=== PATIENT | female | born 1985 | race Caucasian/White ===

== ENCOUNTER → 2016-12-31 | Outpatient (CLI) | payer BC ==
[~2016-12-31] MED LIST: ACET125T2 PO; ACET25TA PO; GABA300C3 PO; IBUP600T26 PO; TOPI25TA5 PO; VITA100T98 PO
--- NOTE | 2016-12-31 11:44 | REP ---
Pelvic sonography: History: Pelvic pain. Findings: Transabdominal and transvaginal scanning are performed. Uterine dimensions are normal at 9.2 x 3.6 x 5.8 cm. Endometrial echo is 0.8 cm thick and centrally placed. There is a tiny sliver of fluid in the cul-de-sac adjacent the right ovary. The ovaries are enlarged bilaterally. Overall dimensions of the right ovary are 6.9 x 4.1 x 3.8 cm. The left ovary dimensions overall are 5.3 x 3.0 x 3.7 cm. In the right ovary, there is a hypoechoic and avascular lesion consistent with complex cyst such as endometrioma measuring 3.3 x 2.7 x 2.1 cm. There is a tiny focal calcification along the periphery of this. In the left ovary, there is a 2.2 x 2.8 x 3.2 cm anechoic cyst. There is a focal hyperechoic excrescence on the posterior wall of the cyst consistent with a mural calcification. No soft tissue nodule is seen. In the left ovary, there is also a hypoechoic area 1.1 x 1.3 x 1.0 cm which could be a complex cyst as well. Impression: Hypoechoic cysts bilaterally in the enlarged ovaries, question endometrioma versus hemorrhagic cyst. Small amount of cul-de-sac fluid. Normal uterus. Signed by Keith Mcpherson MD 12/31/2016 01:55 P
== END | disposition home or self-care (01) ==
LOC: M SMT 07:50
PROVIDERS: ATTEND Advanced Practice Midwife
DX: N83.201 Unspecified ovarian cyst, right side (principal); N83.202 Unspecified ovarian cyst, left side

== ENCOUNTER → 2017-03-15 | Day surgery (SDC) | payer BC ==
[~2017-03-15] VITALS: Ht 170.2 cm; Wt 86.2 kg
[~2017-03-15] MED LIST changes: +BUPIVACAINE HCL 0.25% 30 ML VIAL As Ordered ONE; +GABA-282 PO; -GABA300C3 PO; +GLYCOPYRROLATE INJ 0.2 MG/ML 2 ML VIAL As Ordered ONE; +HYDROmorphone HCL 2 MG/ML 1ML VIAL (J1170) As Ordered ONE; +KETOROLAC 60 MG/2 ML VIAL (J1885) As Ordered ONE; +LR 1,000 ML IV SCH; +MEPERIDINE INJ 25 MG/ML VIAL (J2175) IV PRN; +METHYLENE BLUE 0.5% (5MG/ML) 10 ML AMP (PROVAYBLUE)(Q9968 PER 1MG) As Ordered ONE; +METOCLOPRAMIDE INJ 10MG/2ML VIAL (J2765) IV PRN; +MIDAZOLAM INJ 2 MG/2 ML VIAL (J2250) As Ordered ONE; +MORPHINE 2 MG/ML 1ML SYRINGE IV PRN; +ONDANSETRON 4MG/2ML VIAL (J2405) As Ordered ONE; +ONDANSETRON 4MG/2ML VIAL (J2405) IV PRN; +OXYC1TAB23 PO; +PERCOCET 5MG/325MG TAB PO PRN; +PROPOFOL 200 MG/20 ML VIAL As Ordered ONE; +ROCURONIUM BROMIDE 50 MG/5 ML VIAL As Ordered ONE; +SCOPOLAMINE 1.5 MG TRANSDERMAL TOP ONE; +dexameTHASONE 4 MG/ML 1ML VIAL (J1100) As Ordered ONE; +fentaNYL 100 MCG/2 ML INJECTION (J3010) IV PRN; +fentaNYL 250 MCG/5 ML INJECTION (J3010) As Ordered ONE
[2017-03-15 09:15] LABS: MEAN CORPUSCULAR HEMOGLOBIN 31.3 pg (27.0-33.0); MEAN CORPUSCULAR HGB CONC 33.4 g/dl (32.0-36.5); MEAN CORPUSCULAR VOLUME 93.6 fl (80.0-96.0); RED CELL DISTRIBUTION WIDTH 13.2 % (11.5-14.5); WHITE BLOOD COUNT 10.8 K/mm3 (4.0-10.0)
[2017-03-15 09:30] LABS: CONTROL LINE UCG INT CTR LINE PRESENT
[2017-03-15] MEDS: PERCOCET 5MG/325MG TAB PO PRN ×2 (12:47→13:20)
--- NOTE | 2017-03-15 14:37 | RO ---
DATE OF PROCEDURE: 03/15/2017 PREPROCEDURE DIAGNOSES: Endometriosis, pelvic pain. POSTPROCEDURE DIAGNOSES: Endometriosis, pelvic pain. PROCEDURE: Laparoscopy, lysis of adhesions, excision of endometriosis, right ovarian cystectomy, chromotubation. SURGEON: Anuel Aguero MD CESSATION SYSTEMS OUTREACH SPECIALIST: ANESTHESIA: General endotracheal. ESTIMATED BLOOD LOSS: Minimal. FINDINGS: Stage IV endometriosis, right ovarian endometrioma approximately cm in size, follicular cyst of the left ovary. Both ovaries were adherent to the ovarian fossa due to endometriosis. Both fallopian tubes were densely adherent to the ovaries. There were dense adhesions of the posterior cul-de-sac. There were also dense adhesions to the anterior cul-de-sac. There were endometriosis implants on the anterior abdominal wall and in the abdomen adjacent to the liver. She had a normal appearing liver and stomach. Normal appearing intestines. OPERATIVE SUMMARY: The patient was taken to the operating room where general endotracheal anesthesia was induced. She was prepped and draped in the sterile fashion in the dorsal lithotomy position. Clement catheter was placed. Speculum was placed in the vagina. Cervix was dilated with taper dilators. A uterine manipulator was placed through the internal os. The speculum was removed. Periumbilical incision was made with the scalpel. Veress needle was placed through this incision. Intraabdominal location of the Veress needle was assessed with the use of saline filled syringe. Pneumoperitoneum was created. Veress needle was removed. A 10 mm trocar with Visiport was inserted. Two 5 mm suprapubic ports were placed under direct visualization. Findings encountered were as noted above. Two rasping instruments were used to fully dissect adhesions of the endometriosis from the ovaries. The ovaries were from the ovarian fossa. Harmonic scalpel was used to dissect and incise endometriosis cyst on the right ovary. Left ovarian follicular cyst was drained as well. Numerous adhesions were taken down sharply with Endoshears. Both sides were reasonably freed by the end of the procedure. Methylene blue dye was instilled through the Zumi manipulator. Bilateral spill was readily seen on both sides. The pneumoperitoneum was released. All instruments were removed. The skin was closed with #4-0 Monocryl subcuticular sutures. Sponge, instrument and needle counts were correct.
[2017-03-15 15:00] VITALS: BP 126/76
== END | disposition home or self-care (01) ==
LOC: M SDC 08:50
PROVIDERS: ATTEND Specialist
DX: N80.3 Endometriosis of pelvic peritoneum (principal); R10.2 Pelvic and perineal pain; N73.6 Female pelvic peritoneal adhesions (postinfective); G93.2 Benign intracranial hypertension; Z88.1 Allergy status to other antibiotic agents; Z91.013 Allergy to seafood; Z91.030 Bee allergy status; Z79.899 Other long term (current) drug therapy
CPT/HCPCS: 36415; 58350; 58662; 84703; 85027; J1100; J1170; J1885; J2250; J2405; J3010; Q9968

== ENCOUNTER → 2017-07-20 | Outpatient (CLI) | payer BC ==
[~2017-07-20] MED LIST changes: +ACET250T2 PO; -ACET25TA PO; -BUPIVACAINE HCL 0.25% 30 ML VIAL As Ordered ONE; -GLYCOPYRROLATE INJ 0.2 MG/ML 2 ML VIAL As Ordered ONE; -HYDROmorphone HCL 2 MG/ML 1ML VIAL (J1170) As Ordered ONE; +IBUP-1022 PO; -IBUP600T26 PO; -KETOROLAC 60 MG/2 ML VIAL (J1885) As Ordered ONE; -LR 1,000 ML IV SCH; -MEPERIDINE INJ 25 MG/ML VIAL (J2175) IV PRN; -METHYLENE BLUE 0.5% (5MG/ML) 10 ML AMP (PROVAYBLUE)(Q9968 PER 1MG) As Ordered ONE; -METOCLOPRAMIDE INJ 10MG/2ML VIAL (J2765) IV PRN; -MIDAZOLAM INJ 2 MG/2 ML VIAL (J2250) As Ordered ONE; -MORPHINE 2 MG/ML 1ML SYRINGE IV PRN; -ONDANSETRON 4MG/2ML VIAL (J2405) As Ordered ONE; -ONDANSETRON 4MG/2ML VIAL (J2405) IV PRN; -PERCOCET 5MG/325MG TAB PO PRN; -PROPOFOL 200 MG/20 ML VIAL As Ordered ONE; -ROCURONIUM BROMIDE 50 MG/5 ML VIAL As Ordered ONE; -SCOPOLAMINE 1.5 MG TRANSDERMAL TOP ONE; +TOPI25TA10 PO; -TOPI25TA5 PO; -dexameTHASONE 4 MG/ML 1ML VIAL (J1100) As Ordered ONE; -fentaNYL 100 MCG/2 ML INJECTION (J3010) IV PRN; -fentaNYL 250 MCG/5 ML INJECTION (J3010) As Ordered ONE
== END ==
LOC: M SMT 13:10
PROVIDERS: ATTEND Obstetrics & Gynecology Reproductive Endocrinology
DX: Z53.8 Procedure and treatment not carried out for other reasons (principal)

== ENCOUNTER → 2017-07-22 | Outpatient (REF) | payer BC ==
[2017-07-30 00:06] LABS: SMN1 CARRIER DETECTION RATE Note (.); SMN1 COMMENTS Note (.); SMN1 DISCLAIMER Note (.); SMN1 INTERPRETATION Note (.); SMN1 METHOD/LIMITATIONS Note (.); SMN1 REFERENCES Note (.)
== END ==
LOC: M LAB REF 10:08
PROVIDERS: ATTEND Obstetrics & Gynecology Reproductive Endocrinology
DX: Z31.41 Encounter for fertility testing (principal)

== ENCOUNTER → 2017-08-06 | Outpatient (CLI) | payer BC ==
--- NOTE | 2017-08-06 14:36 | REP ---
MRA BRAIN WITHOUT CONTRAST: HISTORY: Benign intracranial hypertension. Unenhanced 2D ontd-et-fhtcab MR venography was performed. Comparison 11/16/2016. There are no filling defects in the deep venous system or dural sinuses. There is loss of the normal hyperintense signal in the proximal left transverse sinus and proximal left sigmoid sinus, unchanged compared to the previous study. The right transverse and sigmoid sinuses are dominant. IMPRESSION: There is loss of the normal hyperintense signal in the proximal left transverse and proximal left sigmoid sinuses consistent with stenosis, unchanged compared to the previous study. Signed by Anuel Pitt MD 08/06/2017 10:29 A
== END ==
LOC: M PLARAD 08:58
PROVIDERS: ATTEND Psychiatry & Neurology Neurology
DX: G93.2 Benign intracranial hypertension (principal)

== ENCOUNTER → 2017-08-09 | Outpatient (CLI) | payer BC ==
[2017-08-09 08:39] LABS: HCG, SERUM QUANTITATIVE < 1.0 MIU/ML
--- NOTE | 2017-08-09 08:47 | REP ---
Transvaginal pelvic sonography: History: Infertility. Findings: Uterine dimensions are 8.2 x 4.1 x 5.9 cm. Endometrial echo is 1.1 cm thick. There is no evidence of free fluid or focal uterine mass. The right ovary has dimensions today of 7.2 x 2.9 x 3.9 cm. There are six follicles over a centimeter measured as follows in the right ovary: 3.9 x 2.2, 2.2 x 1.0, 1.9 x 1.6, 1.3 x 1.0, 1.2 x 0.8, and 2.3 x 1.5 cm. In addition, the right ovary contains 23 follicles ranging in size from 0.2-0.9 cm. The overall dimensions of the left ovary are 5.4 x 2.9 x 5.3 cm. There is a 2.7 x 1.7 cm cyst in the left ovary. In addition, the left ovary contains 20 follicles ranging in size from 0.3-0.7 cm and a hemorrhagic follicle is seen in the left ovary measuring 1.0 x 1.6 x 2.5 cm. Impression: Ovarian follicle study pelvic ultrasound as above. Please print and fax worksheet as preliminary report. Signed by Keith Mcpherson MD 08/09/2017 09:40 A
[2017-08-09 10:38] LABS: PROGESTERONE 0.4 NG/ML
[2017-08-09 10:41] LABS: ESTRADIOL 68.5 PG/ML; FOLLICLE STIMULATING HORMONE 9.7 mIU/mL; LUTEINIZING HORMONE 7.3 mIU/mL
== END ==
LOC: M LAB 07:05
PROVIDERS: ATTEND Obstetrics & Gynecology Reproductive Endocrinology
DX: N97.8 Female infertility of other origin (principal)

== ENCOUNTER → 2017-08-24 | Outpatient (CLI) | payer BC ==
[2017-08-24 08:20] LABS: ESTRADIOL < 19.0 PG/ML; LUTEINIZING HORMONE 1.1 mIU/mL; PROGESTERONE < 0.2 NG/ML
--- NOTE | 2017-08-24 08:47 | REP ---
Pelvic ultrasound for follicle analysis, stat request: The studies performed with transvaginal imaging. Right ovary: There are two follicles greater than 10 mm, the largest measuring up to 12.4 mm. In addition, there are poor for follicle measuring 1.9 to 6.4 mm. The right ovary is normal size measuring 3.0-0.1 x 2.4 cm. Left ovary: There are two follicles greater than 10 mm, the largest measuring up to 27.4 mm. In addition, there are 11 follicles measuring 2.70-5.1 mm. Additionally, there is a hemorrhagic cyst measuring 1.6 x 1.4 x 2.0 cm. Also, there is a para ovarian/exophytic cyst measuring 2.4 x 2.3 x 4.8 cm. The possibility of hydrosalpinx cannot be entirely excluded. The left ovary is slightly enlarged measuring 5.3 x 2.7 x 4.8 cm. The uterus is anteverted and normal size measuring 7.6 x 3.6 x 5.9 cm. The endometrium is not thickened measuring 7.4 ml and has a homogeneous echotexture. Impression: Large paraovarian/exophytic cyst versus hydrosalpinx in the left adnexa as described. Bilateral ovarian follicles as described. Signed by Regino Sutherland MD 08/24/2017 08:38 A
== END ==
LOC: M RAD 07:04
PROVIDERS: ATTEND Obstetrics & Gynecology Reproductive Endocrinology
DX: N97.9 Female infertility, unspecified (principal)

== ENCOUNTER → 2017-08-31 | Outpatient (CLI) | payer BC ==
--- NOTE | 2017-08-31 08:18 | REP ---
Pelvic ultrasound, endovaginal imaging, follicle analysis: The right ovary: There is one follicle greater than 10 ml measuring up to 14.4 mm. In addition, there are six follicles measuring 2.9 - 9.0 mm. The right ovary is normal size measuring 4.1 x 2.8 x 3.3 cm. Left ovary: There are four follicles greater than 10 mm, the largest measuring up to 20.6 mm. In addition, there are nine follicles measuring 1.3 - 6.5 mm. The left ovary is slightly enlarged measuring 5.4 x 2.9 x 4.8 cm. The uterus is anteverted and normal size measuring 8.3 x 3.9 x 6.2 cm. The endometrium measures 7.9 mm thickness and has a trilaminar appearance. There is a small fluid collection in the fundal portion of the endometrial canal. Signed by Regino Sutherland MD 08/31/2017 08:09 A
[2017-08-31 10:20] LABS: ESTRADIOL < 19.0 PG/ML; LUTEINIZING HORMONE 7.3 mIU/mL; PROGESTERONE < 0.2 NG/ML
== END ==
LOC: M RAD 07:12
PROVIDERS: ATTEND Obstetrics & Gynecology Reproductive Endocrinology
DX: N97.9 Female infertility, unspecified (principal)

== ENCOUNTER → 2017-09-08 | Outpatient (CLI) | payer BC ==
[2017-09-08 10:39] LABS: ESTRADIOL 178.8 PG/ML; PROGESTERONE 11.7 NG/ML
== END ==
LOC: M LAB 07:41
PROVIDERS: ATTEND Obstetrics & Gynecology Reproductive Endocrinology
DX: Z31.49 Encounter for other procreative investigation and testing (principal)

== ENCOUNTER → 2017-09-15 | Outpatient (CLI) | payer BC ==
[2017-09-15 09:55] LABS: PROGESTERONE 7.3 NG/ML
== END ==
LOC: M LAB 07:44
PROVIDERS: ATTEND Obstetrics & Gynecology Reproductive Endocrinology
DX: Z32.00 Encounter for pregnancy test, result unknown (principal)

== ENCOUNTER → 2017-09-21 | Outpatient (CLI) | payer BC ==
[2017-09-21 08:29] LABS: HCG, SERUM QUANTITATIVE < 1.0 MIU/ML
--- NOTE | 2017-09-21 08:40 | REP ---
Transvaginal pelvic sonography: History: Infertility study. Findings: Uterine dimensions on transvaginal sonography today are 8.8 x 4.1 x 6.4 cm. Endometrial echo is 0.6 cm in thickness. This is excluding the presence of a moderate amount of endometrial fluid. Posterior endometrial contour is slightly irregular. Question small polyps. No free fluid is seen in the cul-de-sac. Right ovary measures 5.5 x 2.3 x 3.5 cm. It contains three follicles measuring over a centimeter as follows: 1.0 x 0.6, 1.1 x 0.8, and 1.1 x 1.0 cm. In addition, the right ovary contains four follicles ranging in size from 0.2-0.4 cm. The overall dimensions of the left ovary are 5.4 x 2.8 x 3.9 cm. There is a 3.5 x 1.7 cm follicle and a 2.6 x 1.7 cm follicle in the left ovary. There are three follicles in the left ovary ranging from 0.3-0.9 cm. There is a hypoechoic hemorrhagic cyst also seen in the left ovary measuring 1.4 x 0.8 x 1.4 cm. There are tubular structures in the adnexal regions bilaterally raising question of hydrosalpinx. Impression: Ovarian follicles as above. Endometrial fluid. Somewhat nodular contour posterior endometrial lining. Small tubular structures in the adnexal regions. Question hydrosalpinx. Signed by Keith Mcpherson MD 09/21/2017 12:50 P
[2017-09-21 11:24] LABS: LUTEINIZING HORMONE 7.1 mIU/mL; PROGESTERONE 0.3 NG/ML
[2017-09-21 11:25] LABS: FOLLICLE STIMULATING HORMONE 3.9 mIU/mL
== END ==
LOC: M RAD 07:18
PROVIDERS: ATTEND Obstetrics & Gynecology Reproductive Endocrinology
DX: N97.9 Female infertility, unspecified (principal)

== ENCOUNTER → 2017-10-18 | Outpatient (CLI) | payer BC ==
[2017-10-18 10:46] LABS: PROGESTERONE 0.2 NG/ML
[2017-10-18 10:47] LABS: LUTEINIZING HORMONE 4.4 mIU/mL
[2017-10-18 10:58] LABS: ESTRADIOL 318.9 PG/ML
== END ==
LOC: M LAB 07:17
PROVIDERS: ATTEND Obstetrics & Gynecology Reproductive Endocrinology
DX: N97.9 Female infertility, unspecified (principal)

== ENCOUNTER → 2017-11-08 | Outpatient (CLI) | payer BC ==
[2017-11-08 08:29] LABS: HCG, SERUM QUANTITATIVE < 1.0 MIU/ML
[2017-11-08 08:31] LABS: ESTRADIOL 70.8 PG/ML; LUTEINIZING HORMONE 5.6 mIU/mL; PROGESTERONE 0.3 NG/ML
[2017-11-08 08:32] LABS: FOLLICLE STIMULATING HORMONE 9.2 mIU/mL
== END ==
LOC: M LAB 07:37
PROVIDERS: ATTEND Obstetrics & Gynecology Reproductive Endocrinology
DX: N97.9 Female infertility, unspecified (principal)

== ENCOUNTER → 2017-11-12 | Outpatient (CLI) | payer BC ==
[2017-11-12 09:24] LABS: PROGESTERONE < 0.2 NG/ML
[2017-11-12 09:25] LABS: ESTRADIOL 653.8 PG/ML; LUTEINIZING HORMONE 3.4 mIU/mL
== END ==
LOC: M LAB 07:16
PROVIDERS: ATTEND Obstetrics & Gynecology Reproductive Endocrinology
DX: N97.9 Female infertility, unspecified (principal)

== ENCOUNTER → 2017-11-15 | Outpatient (CLI) | payer BC ==
[2017-11-15 10:35] LABS: LUTEINIZING HORMONE 3.6 mIU/mL; PROGESTERONE 0.5 NG/ML
== END ==
LOC: M LAB 07:16
PROVIDERS: ATTEND Obstetrics & Gynecology Reproductive Endocrinology
DX: N97.9 Female infertility, unspecified (principal)

== ENCOUNTER → 2017-11-17 | Outpatient (CLI) | payer BC ==
[2017-11-17 11:15] LABS: LUTEINIZING HORMONE 5.2 mIU/mL; PROGESTERONE 0.8 NG/ML
[2017-11-17 12:19] LABS: ESTRADIOL 3625.5 PG/ML
== END ==
LOC: M LAB 07:21
PROVIDERS: ATTEND Obstetrics & Gynecology Reproductive Endocrinology
DX: N97.9 Female infertility, unspecified (principal)

== ENCOUNTER → 2017-12-03 | Outpatient (CLI) | payer OTHER ==
[2017-12-03 08:42] LABS: HCG, SERUM QUANTITATIVE < 1.0 MIU/ML
[2017-12-03 09:15] LABS: PROGESTERONE 0.4 NG/ML
[2017-12-03 09:15] LABS: LUTEINIZING HORMONE 4.9 mIU/mL
[2017-12-03 09:16] LABS: ESTRADIOL 48.4 PG/ML; FOLLICLE STIMULATING HORMONE 6.3 mIU/mL
== END ==
LOC: M RAD 06:55
DX: N97.9 Female infertility, unspecified (principal)

== ENCOUNTER → 2017-12-17 | Outpatient (CLI) | payer OTHER ==
[2017-12-17 08:34] LABS: HCG, SERUM QUANTITATIVE < 1.0 MIU/ML
[2017-12-17 09:20] LABS: ESTRADIOL 403.5 PG/ML; FOLLICLE STIMULATING HORMONE 9.6 mIU/mL; LUTEINIZING HORMONE 20.3 mIU/mL
[2017-12-17 09:20] LABS: PROGESTERONE 0.7 NG/ML
== END ==
LOC: M LAB 07:35
DX: N97.9 Female infertility, unspecified (principal)
CPT/HCPCS: 83001

== ENCOUNTER → 2018-01-11 | Outpatient (CLI) | payer OTHER ==
[2018-01-11 09:06] LABS: ESTRADIOL 299.7 PG/ML; LUTEINIZING HORMONE 6.3 mIU/mL
[2018-01-11 09:06] LABS: PROGESTERONE < 0.2 NG/ML
== END ==
LOC: M LAB 07:31
DX: N97.9 Female infertility, unspecified (principal)

== ENCOUNTER → 2018-01-21 | Outpatient (CLI) | payer OTHER ==
[2018-01-21 09:07] LABS: ESTRADIOL 181.7 PG/ML
[2018-01-21 09:07] LABS: PROGESTERONE 28.5 NG/ML
== END ==
LOC: M LAB 07:27
DX: N97.9 Female infertility, unspecified (principal)
CPT/HCPCS: 84443

== ENCOUNTER → 2018-03-24 | Outpatient (CLI) | payer OTHER ==
[2018-03-24 13:46] LABS: HEMATOCRIT 39.7 % (36.0-47.0); HEMOGLOBIN 13.7 g/dl (12.0-15.5); MEAN CORPUSCULAR HEMOGLOBIN 33.1 pg (27.0-33.0); MEAN CORPUSCULAR HGB CONC 34.5 g/dl (32.0-36.5); MEAN CORPUSCULAR VOLUME 95.9 fl (80.0-96.0); RED BLOOD COUNT 4.14 10^6/uL (4.00-5.40); WHITE BLOOD COUNT 10.4 10^3/uL (4.0-10.0)
[2018-03-24 13:47] LABS: BASO % 0.4 % (0.0-1.0); EOS # 0.2 10^3/uL (0.0-0.50); IMMATURE GRANULOCYTE % 0.3 % (0-3.0); LYMPH # 2.1 10^3/uL (1.5-4.5); LYMPH % 20.1 % (24.0-44.0); MONO # 0.8 10^3/uL (0.0-0.8); MONO % 7.3 % (0.0-5.0); NEUTROPHILS # 7.2 10^3/uL (1.8-7.7); NEUTROPHILS % 69.9 % (36.0-66.0); PLATELET COUNT, AUTOMATED 332 10^3/uL (150-450); RED CELL DISTRIBUTION WIDTH 13.6 % (11.5-14.5)
[2018-03-24 15:02] LABS: CHLAMYDIA DNA AMPLIFICATION NEGATIVE (NEGATIVE); GC DNA AMPLIFICATION NEGATIVE (NEGATIVE)
[2018-03-25 11:52] LABS: RUBELLA IgG QUALITATIVE IMMUNE (IMMUNE)
[2018-03-25 11:59] LABS: HBsAg Prenatal NEGATIVE (NEGATIVE)
[2018-03-25 12:22] LABS: HIV 1&2 SCREEN CENTAUR NEGATIVE (NEGATIVE)
[2018-03-25 12:22] LABS: HEPATITIS C VIRUS ABY INDEX 0.1 INDEX (<0.8)
== END ==
LOC: M SMT 09:59
DX: Z34.81 Encounter for supervision of other normal pregnancy, first trimester (principal); Z3A.11 11 weeks gestation of pregnancy
CPT/HCPCS: 86762

== ENCOUNTER → 2018-05-16 | Outpatient (CLI) | payer OTHER | LOC: M RAD 07:32 | DX: Z34.82 Encounter for supervision of other normal pregnancy, second trimester (principal) ==

== ENCOUNTER → 2018-06-07 | Outpatient (CLI) | payer OTHER | LOC: M RAD 08:32 | DX: Z34.82 Encounter for supervision of other normal pregnancy, second trimester (principal); Z36.89 Encounter for other specified antenatal screening; Z3A.23 23 weeks gestation of pregnancy | CPT/HCPCS: 76816 ==

== ENCOUNTER → 2018-06-28 | Outpatient (CLI) | payer OTHER ==
[2018-06-28 13:51] LABS: BASO % 0.3 % (0.0-1.0); EOS # 0.3 10^3/uL (0.0-0.50); EOS % 2.9 % (0.0-3.0); HEMATOCRIT 36.3 % (36.0-47.0); HEMOGLOBIN 12.3 g/dl (12.0-15.5); IMMATURE GRANULOCYTE % 0.5 % (0-3.0); LYMPH # 1.7 10^3/uL (1.5-4.5); LYMPH % 15.8 % (24.0-44.0); MEAN CORPUSCULAR HEMOGLOBIN 34.2 pg (27.0-33.0); MEAN CORPUSCULAR HGB CONC 33.9 g/dl (32.0-36.5); MEAN CORPUSCULAR VOLUME 100.8 fl (80.0-96.0); MONO # 0.5 10^3/uL (0.0-0.8); MONO % 5.1 % (0.0-5.0); NEUTROPHILS # 7.9 10^3/uL (1.8-7.7); NEUTROPHILS % 75.4 % (36.0-66.0); PLATELET COUNT, AUTOMATED 300 10^3/uL (150-450); RED CELL DISTRIBUTION WIDTH 14.6 % (11.5-14.5); WHITE BLOOD COUNT 10.4 10^3/uL (4.0-10.0)
[2018-06-28 14:23] LABS: ALBUMIN 2.6 GM/DL (3.2-5.2); ALBUMIN/GLOBULIN RATIO 0.67 (1.00-1.93); ALKALINE PHOSPHATASE 59 U/L (45-117); ALT/SGPT 18 U/L (12-78); AST/SGOT 11 U/L (7-37); BILIRUBIN,DIRECT < 0.1 MG/DL (0.0-0.2); BILIRUBIN,TOTAL 0.2 MG/DL (0.2-1.0); GLUCOSE CHALLENGE TEST 1 HOUR 106 MG/DL (LESS THAN 140); TOTAL PROTEIN 6.5 GM/DL (6.4-8.2)
[2018-06-30 14:14] LABS: BILE ACIDS FRACTIONATED 11.4 umol/L (4.7-24.5)
== END ==
LOC: M SMT 09:19
DX: Z34.82 Encounter for supervision of other normal pregnancy, second trimester (principal); Z36.89 Encounter for other specified antenatal screening
CPT/HCPCS: 82950

== ENCOUNTER → 2018-08-18 | Outpatient (CLI) | payer OTHER, MEDICAID | LOC: M SMT 07:45 | DX: O26.613 Liver and biliary tract disorders in pregnancy, third trimester (principal); Z3A.34 34 weeks gestation of pregnancy | CPT/HCPCS: 76815 ==

== ENCOUNTER → 2018-08-26 | Outpatient (CLI) | payer OTHER, MEDICAID ==
[2018-08-26 20:15] LABS: ALBUMIN 2.6 GM/DL (3.2-5.2); ALBUMIN/GLOBULIN RATIO 0.67 (1.00-1.93); ALKALINE PHOSPHATASE 71 U/L (45-117); ALT/SGPT 17 U/L (12-78); BILIRUBIN,DIRECT < 0.1 MG/DL (0.0-0.2); BILIRUBIN,TOTAL 0.3 MG/DL (0.2-1.0); TOTAL PROTEIN 6.5 GM/DL (6.4-8.2)
[2018-08-29 10:31] LABS: AST/SGOT 16 U/L (7-37)
[2018-08-30 08:29] LABS: BILE ACIDS FRACTIONATED 13.3 umol/L (4.7-24.5)
== END ==
LOC: M WUC 16:31
DX: O26.613 Liver and biliary tract disorders in pregnancy, third trimester (principal)
CPT/HCPCS: 80076

== ENCOUNTER → 2018-09-06 | Outpatient (REF) | payer OTHER, MEDICAID | LOC: M LAB REF 16:59 | DX: O26.613 Liver and biliary tract disorders in pregnancy, third trimester (principal) ==

== ENCOUNTER 2018-09-16 07:05 | Inpatient (IN) | payer OTHER, MEDICAID ==
[2018-09-16] MEDS: miSOPROStol 50 MCG 1/2 TAB (S0191) PO ×3 (08:10→16:41)
[2018-09-16 08:13] LABS: HEMATOCRIT 39.1 % (36.0-47.0); HEMOGLOBIN 13.4 g/dl (12.0-15.5); MEAN CORPUSCULAR HEMOGLOBIN 34.4 pg (27.0-33.0); MEAN CORPUSCULAR HGB CONC 34.3 g/dl (32.0-36.5); MEAN CORPUSCULAR VOLUME 100.3 fl (80.0-96.0); PLATELET COUNT, AUTOMATED 281 10^3/uL (150-450); RED CELL DISTRIBUTION WIDTH 13.8 % (11.5-14.5); WHITE BLOOD COUNT 10.8 10^3/uL (4.0-10.0)
[2018-09-17] MEDS: OXYTOCIN DRIP 30 UNITS in APPROPRIATE DILUENT 1 EA IV ×2 (01:37→18:00)
[2018-09-17] MEDS: LR 1,000 ML IV ×2 (01:37→06:26)
[2018-09-17] MEDS: PROMETHAZINE INJ 25 MG/ML VIAL (J2550) IV (06:26)
[2018-09-17] MEDS: BUTORPHANOL 2 MG/ML INJ (J0595) IV (06:27)
[2018-09-17] MEDS ORDERED: FENTANYL 2MCG/ML ROPIVACAINE 0.2% IN 0.9% NACL 200ML IVBAG As Ordered (09:21)
[2018-09-17] MEDS: FENTANYL/ROPIVACAINE/NACL BAG 200 ML EPIDURAL (09:53)
[2018-09-17] MEDS ORDERED: diphenhydrAMINE INJ 50MG/ML VIAL (J1200) IV (10:30)
[2018-09-17] MEDS ORDERED: EPIDURAL COMMENT XX (10:30)
[2018-09-17] MEDS ORDERED: LACTATED RINGER'S 1000 ML IV (10:30)
[2018-09-17] MEDS ORDERED: REFRIGERATOR IV KEYS XX (10:30)
[2018-09-17] MEDS ORDERED: EPIDURAL/PCA KEYS XX (10:30)
[2018-09-17] MEDS ORDERED: NALOXONE INJ 0.4 MG/1 ML VIAL (J2310) IV (10:30)
[2018-09-17] MEDS: ePHEDrine SULFATE 25 MG/5 ML(5MG/ML) SYRINGE IV ×2 (13:21→14:49)
[2018-09-17] MEDS: ONDANSETRON 4MG/2ML VIAL (J2405) IV (14:43)
[2018-09-17] MEDS ORDERED: ONDANSETRON 4MG/2ML VIAL (J2405) IV (18:00)
[2018-09-17] MEDS ORDERED: METHYLERGONOVINE MALEATE 0.2 MG TAB PO (18:00)
[2018-09-17] MEDS ORDERED: DOCUSATE SODIUM 100 MG CAP PO (18:00)
[2018-09-17] MEDS ORDERED: DIBUCAINE 1% OINTMENT 30GM TOP (18:00)
[2018-09-17] MEDS ORDERED: LIDOCAINE 1% MDV 20ML VIAL As Ordered (19:08)
[2018-09-17] MEDS: IBUPROFEN 800 MG TAB PO (19:16)
[2018-09-17] MEDS: ACETAMINOPHEN 500 MG TAB PO (23:54)
[2018-09-18] MEDS: PRENATAL VITAMINS CHEWABLE TABLET PO ×2 (01:14→07:33)
[2018-09-18] MEDS: IBUPROFEN 800 MG TAB PO ×2 (06:29→16:07)
[2018-09-18] MEDS: ACETAMINOPHEN 500 MG TAB PO ×2 (07:33→22:22)
[2018-09-19] MEDS: IBUPROFEN 800 MG TAB PO ×2 (00:31→08:29)
[2018-09-19] MEDS: MEASLES,MUMPS,RUBELLA VACCINE INJ (MMR-II) (90707) SC (07:24)
[2018-09-19] MEDS: RHOGAM 300 MCG (1500 IU) INJ (J2790) IM (07:24)
[2018-09-19] MEDS: PRENATAL VITAMINS CHEWABLE TABLET PO (08:31)
== END 2018-09-19 15:00 | disposition home or self-care (01) | DRG 560 ==
LOC: M LDI 07:05 → M OBS 09-17 20:53
PROVIDERS: Specialist
PROC: 3E0P7GC Introduction of Other Therapeutic Substance into Female Reproductive, Via Natural or Artificial Opening (ICD-10-PCS; 2018-09-16)
PROC: 10E0XZZ Delivery of Products of Conception, External Approach (ICD-10-PCS; principal; 2018-09-17)
PROC: 0KQM0ZZ Repair Perineum Muscle, Open Approach (ICD-10-PCS; 2018-09-17)
DX: O26.62 Liver and biliary tract disorders in childbirth (principal); O70.1 Second degree perineal laceration during delivery; Z37.0 Single live birth; K83.1 Obstruction of bile duct; Z3A.37 37 weeks gestation of pregnancy

== ENCOUNTER → 2019-01-15 | Outpatient (REF) | payer MEDICAID, OTHER ==
[~2019-01-15] MED LIST changes: +FAMO1TAB25 PO; -GABA-282 PO; +GABA-843 PO; +IBUP-1114 PO; +MAPA500T2 PO; +PRENTAB9 PO; +URSO300C3 PO
[2019-01-15 12:20] LABS: INFLUENZA A AMPLIFICATION NEGATIVE (NEGATIVE); INFLUENZA B AMPLIFICATION NEGATIVE (NEGATIVE)
== END ==
LOC: M LAB REF 11:36
PROVIDERS: ATTEND Physician Assistant Medical
DX: J11.1 Influenza due to unidentified influenza virus with other respiratory manifestations (principal)

== ENCOUNTER → 2019-05-23 | Outpatient (REF) | payer OTHER ==
[2019-05-25 14:24] LABS: HPV HYBRID CAPTURE II Negative (Negative)
== END ==
LOC: M LAB REF 12:42
PROVIDERS: ATTEND Advanced Practice Midwife
DX: Z12.4 Encounter for screening for malignant neoplasm of cervix (principal)

== ENCOUNTER → 2020-01-02 | Outpatient (REF) | payer OTHER, BC ==
[2020-01-02 13:54] LABS: BASO # 0.1 10^3/uL (0.0-0.2); BASO % 0.6 % (0.0-1.0); EOS # 0.4 10^3/uL (0.0-0.5); HEMATOCRIT 42.5 % (36.0-47.0); HEMOGLOBIN 13.8 g/dl (12.0-15.5); LYMPH # 2.5 10^3/uL (1.5-5.0); LYMPH % 27.2 % (24.0-44.0); MEAN CORPUSCULAR HEMOGLOBIN 30.9 pg (27.0-33.0); MEAN CORPUSCULAR HGB CONC 32.5 g/dl (32.0-36.5); MEAN CORPUSCULAR VOLUME 95.3 fl (80.0-96.0); MONO # 0.5 10^3/uL (0.0-0.8); MONO % 5.6 % (0.0-5.0); NEUTROPHILS # 5.8 10^3/uL (1.5-8.5); NEUTROPHILS % 62.3 % (36.0-66.0); PLATELET COUNT, AUTOMATED 375 10^3/uL (150-450); RED BLOOD COUNT 4.46 10^6/uL (4.00-5.40); WHITE BLOOD COUNT 9.2 10^3/uL (4.0-10.0)
[2020-01-02 14:10] LABS: ALBUMIN 3.9 GM/DL (3.2-5.2); ALT/SGPT 31 U/L (12-78); BILIRUBIN,TOTAL 0.1 MG/DL (0.2-1.0); BLOOD UREA NITROGEN 15 MG/DL (7-18); CALCIUM LEVEL 9.3 MG/DL (8.5-10.1); CARBON DIOXIDE LEVEL 27 MEQ/L (21-32); CHLORIDE LEVEL 104 MEQ/L (98-107); GLOMERULAR FILTRATION RATE > 60.0 (>60); GLUCOSE, FASTING 82 MG/DL (70-100); POTASSIUM SERUM 4.2 MEQ/L (3.5-5.1); RHEUMATOID FACTOR QUANT < 10.0 IU/ML (<15.0); SODIUM LEVEL 137 MEQ/L (136-145); TOTAL 25(OH) VITAMIN D 20.4 NG/ML (30.0-100.0); TOTAL PROTEIN 7.9 GM/DL (6.4-8.2)
[2020-01-02 14:51] LABS: ERYTHROCYTE SEDIMENTATION RATE 15 mm/hr (0-20)
[2020-01-04 00:06] LABS: ANTINUCLEAR ANTIBODIES DIRECT Negative (Negative)
== END ==
LOC: M LABDRAW1 13:01
PROVIDERS: ATTEND Psychiatry & Neurology Neurology
DX: R51 Headache (principal)

== ENCOUNTER 2020-01-27 08:07 | Emergency (ER) | payer BC ==
[~2020-01-27] VITALS: Ht 170.2 cm; Wt 93.2 kg
[2020-01-27] MEDS ORDERED: ZONI50CA11 (08:16)
[2020-01-27] MEDS ORDERED: FLUO20CA22 (08:16)
[2020-01-27] MEDS ORDERED: NS 1,000 ML IV ONE (08:45)
[2020-01-27 09:00] LABS: BASO # 0.1 10^3/uL (0.0-0.2); BASO % 0.7 % (0.0-1.0); EOS # 0.3 10^3/uL (0.0-0.5); EOS % 3.4 % (0.0-3.0); HEMATOCRIT 39.6 % (36.0-47.0); HEMOGLOBIN 13.6 g/dl (12.0-15.5); LYMPH # 1.9 10^3/uL (1.5-5.0); LYMPH % 19.3 % (24.0-44.0); MEAN CORPUSCULAR HEMOGLOBIN 31.7 pg (27.0-33.0); MEAN CORPUSCULAR HGB CONC 34.3 g/dl (32.0-36.5); MEAN CORPUSCULAR VOLUME 92.3 fl (80.0-96.0); MONO # 0.5 10^3/uL (0.0-0.8); NEUTROPHILS # 6.9 10^3/uL (1.5-8.5); NEUTROPHILS % 71.3 % (36.0-66.0); PLATELET COUNT, AUTOMATED 327 10^3/uL (150-450); RED BLOOD COUNT 4.29 10^6/uL (4.00-5.40); WHITE BLOOD COUNT 9.7 10^3/uL (4.0-10.0)
[2020-01-27] MEDS ORDERED: ONDANSETRON 4MG/2ML VIAL (J2405) IV ONE (09:00)
[2020-01-27] MEDS ORDERED: KETOROLAC 30 MG/ML VIAL (J1885) IV ONE (09:00)
[2020-01-27 09:25] LABS: ALBUMIN 3.7 GM/DL (3.2-5.2); ALT/SGPT 32 U/L (12-78); BILIRUBIN,DIRECT < 0.1 MG/DL (0.0-0.2); BILIRUBIN,TOTAL 0.2 MG/DL (0.2-1.0); LIPASE 83 U/L (73-393); TOTAL PROTEIN 7.7 GM/DL (6.4-8.2)
--- NOTE | 2020-01-27 10:15 | REP ---
CT ABDOMEN/PELVIS WITHOUT CONTRAST: CT abdomen/pelvis performed without oral or IV contrast. Sagittal and coronal reconstruction images are performed. Visualized lung bases are clear. Liver, spleen, adrenals, pancreas, and kidneys are grossly unremarkable. No renal, ureteral, or bladder calculus is seen, and there is no hydroureteronephrosis. There is no abdominal aortic aneurysm. There is no adenopathy. There is no free air or free fluid. There is no bowel wall thickening. The appendix is normal. Left ovary is enlarged measuring up to 8.6 cm in diameter. Internally, there are two or three cystic structures visualized versus a large complex cyst. Right ovary demonstrates a cyst approximately 2.9 cm in diameter. Uterus is deviated to the right of midline. Urinary bladder is mildly distended and grossly unremarkable. IMPRESSION: Enlarged left ovary containing a complex cyst versus two or three separate cystic structures. Smaller right ovarian cyst measures 2.9 cm. No free air or free fluid. No evidence of appendicitis. No renal or ureteral calculus and no hydroureteronephrosis. Electronically Signed by Regino Vásquez MD 01/27/2020 06:36 P
[2020-01-27] MEDS ORDERED: MORPHINE 4 MG/ML 1ML VIAL/SYRINGE (J2270) IV ONE (10:45)
[2020-01-27] MEDS ORDERED: KETO10TAB PO (13:00)
--- NOTE | 2020-01-27 13:05 | REP ---
PELVIC ULTRASOUND: Real-time sonographic evaluation of pelvis performed utilizing transabdominal and endovaginal technique. Bladder measures 9.2 x 6.4 x 9.3 cm. Uterus measures 9.1 x 5.0 x 5.9 cm. Endometrial thickness is prominent at 21 mm, with no endometrial fluid collection. Tiny nabothian cysts are seen in the region of the cervix. There is an anterior uterine fibroid 1 cm in diameter. Right ovary measures 2.8 x 2.2 x 3.5 cm and contains a dominant follicle 1.7 cm. Left ovary is enlarged. It measures 7.9 x 4.6 x 4.5 cm. Two complex cystic structures of the left ovary are visualized, measuring 3.9 x 3.8 x 3.6 cm and 4.9 x 4.7 x 4.5 cm. There is no torsion of either ovary, blood flow is seen in each ovary with duplex Doppler evaluation. There is trace free fluid. IMPRESSION: Two complex cysts left ovary, maximum diameters are 3.9 and 4.9 cm. No torsion. Trace free fluid. Dominant follicle right ovary 1.7 cm. Recommend followup ultrasound in 2 months. Electronically Signed by Regino Vásquez MD 01/27/2020 06:46 P
[2020-01-27 13:26] VITALS: BP 124/74
== END 2020-01-27 13:27 | disposition home or self-care (01) ==
LOC: M ED 08:07
DX: N83.292 Other ovarian cyst, left side (principal); N83.291 Other ovarian cyst, right side; N80.9 Endometriosis, unspecified; Z88.1 Allergy status to other antibiotic agents; Z91.013 Allergy to seafood; Z91.030 Bee allergy status
CPT/HCPCS: 74176; 76830; 76856; 80047; 80076; 81001; 83690; 84702; 85025; 87086; 93976; 96361; 96374; 96375; 99284; J1885; J2270; J2405

== ENCOUNTER → 2020-03-18 | Outpatient (CLI) | payer BC ==
[~2020-03-18] MED LIST changes: +FLUO20CA22; +KETO10TAB PO; +ZONI50CA11
--- NOTE | 2020-03-19 05:11 | REP ---
Clinical: Follow-up left ovarian cyst. Comparison: 01/27/2020 . Technique: Transabdominal pelvic ultrasound followed by transvaginal examination for better evaluation of the endometrium and adnexa with color Doppler evaluation of the ovaries. Findings: Bladder is collapsed. Normal anteverted uterus measures 9.2 x 4.4 x 5.1 cm . The endometrial complex measures 8.1 mm thickness. No discrete uterine or endometrial abnormalities are appreciated. The ovaries demonstrate appropriate vascularity without evidence for torsion. The right ovary measures 3.3 x 2.2 x 3.3 cm with suggestions for 10 mm cyst / follicle. The left ovary measures approximately 8.4 x 4.9 x 7.9 cm and includes 7.5 x 4.4 x 5.4 cm homogeneous echogenic lesion which may represent hemorrhagic cyst/endometrioma as well as 5.6 x 3.5 x 3.2 cm complex multi septated/cystic lesion which may represent a second hemorrhagic cyst. 3.3 x 1.9 x 2.1 cm anechoic left paraovarian cyst also identified. No significant pelvic free fluid. Impression: 1. Relatively normal uterus and right ovary. 2. Lesions in the left ovary are similar in appearance to prior examination although variations in size may be somewhat subjective due to differences in technical factors as well as positioning. Differential diagnosis include hemorrhagic cysts as well as chocolate cyst/endometrioma. Correlation with physical examination and repeat ultrasound may be warranted. If findings do not resolve pelvic MRI should be considered to exclude more significant pathology.
== END ==
LOC: M WHC 07:59
PROVIDERS: ATTEND Specialist
DX: N83.202 Unspecified ovarian cyst, left side (principal)

== ENCOUNTER → 2020-06-05 | Outpatient (CLI) | payer BC ==
[~2020-06-05] MED LIST changes: +ZONI25CA13 PO
--- NOTE | 2020-06-05 10:45 | REP ---
REASON FOR EXAM: Followup. COMPARISON: 03/18/2020 Transvesical and transvaginal imaging was obtained. The uterus is unchanged in size, shape, and echo pattern measuring approximately 8.1 x 4.2 x 5.4 cm. There is no significant change in the appearance of the endometrial echo complex. It is within normal limits with a maximal thickness of 1.5 cm. The right ovary measures 4.4 x 2.9 x 3.1 cm. Within the right ovary there is a 2.4 x 1.8 x 1.5 cm sized anechoic structure exhibiting posterior wall enhancement and increased through transmission with slightly irregular margins. This likely represents resolving dominant follicle. Left ovary measures 6.2 x 3.8 x 5.9 cm. Once again, there is a complex left adnexal cystic structure. This has not changed significantly compared to the prior exam. This measures approximately 5.4 x 2.7 x 3.4 cm. IMPRESSION: Persistently abnormal left adnexa. Pre- and post gadolinium enhanced pelvic MRI is recommended.
== END ==
LOC: M WHC 06:53
PROVIDERS: ATTEND Specialist
DX: N83.202 Unspecified ovarian cyst, left side (principal); N80.9 Endometriosis, unspecified

== ENCOUNTER → 2020-10-13 | Outpatient (CLI) | payer BC | LOC: M LABSMTC 08:21 | PROVIDERS: ATTEND Anesthesiology | DX: Z01.812 Encounter for preprocedural laboratory examination (principal); Z20.828 Contact with and (suspected) exposure to other viral communicable diseases ==

== ENCOUNTER 2020-10-18 06:11 | Day surgery (SDC) | payer BC ==
[2020-10-18] VITALS (7 sets, daily range): BP systolic 108–127; BP diastolic 69–76
[~2020-10-18] VITALS: Ht 170.2 cm; Wt 97.2 kg
[~2020-10-18 06:11] MED LIST changes: +LIDOCAINE 1% MDV 20ML VIAL SQ PRN
[2020-10-18 06:40] LABS: HEMATOCRIT 43.5 % (36.0-47.0); HEMOGLOBIN 14.1 g/dl (12.0-15.5); MEAN CORPUSCULAR HEMOGLOBIN 30.9 pg (27.0-33.0); MEAN CORPUSCULAR HGB CONC 32.4 g/dl (32.0-36.5); MEAN CORPUSCULAR VOLUME 95.2 fl (80.0-96.0); PLATELET COUNT, AUTOMATED 375 10^3/uL (150-450); RED BLOOD COUNT 4.57 10^6/uL (4.00-5.40); WHITE BLOOD COUNT 8.5 10^3/uL (4.0-10.0)
[2020-10-18] MEDS ORDERED: ORIL150T PO (06:55)
[2020-10-18] MEDS ORDERED: ceFAZolin SOD 2 GM in IV 1 EA IV ONE (07:00)
[2020-10-18] MEDS ORDERED: LR 1,000 ML IV ONE (07:00)
[2020-10-18] MEDS ORDERED: BUPIVACAINE HCL 0.25% 30ML VIAL As Ordered ONE (07:12)
[2020-10-18] MEDS ORDERED: SCOPOLAMINE 1MG TRANSDERMAL PATCH TOP ONE (07:30)
[2020-10-18] MEDS ORDERED: BUPIVACAINE HCL 0.25% 10ML VIAL As Ordered ONE (07:41)
[2020-10-18] MEDS ORDERED: dexameTHASONE 4 MG/ML 1ML VIAL (J1100 PER 1MG) As Ordered ONE (07:58)
[2020-10-18] MEDS ORDERED: HYDROmorphone HCL 2 MG/ML 1ML VIAL (J1170) As Ordered ONE (07:58)
[2020-10-18] MEDS ORDERED: MIDAZOLAM INJ 2MG/2ML VIAL (J2250 PER 1MG) As Ordered ONE (07:58)
[2020-10-18] MEDS ORDERED: ONDANSETRON 4MG/2ML VIAL As Ordered ONE (07:58)
[2020-10-18] MEDS ORDERED: LIDOCAINE 2% 100MG/5ML SDV (FOR ANES.) As Ordered ONE (07:58)
[2020-10-18] MEDS ORDERED: ROCURONIUM BROMIDE 50 MG/5 ML VIAL As Ordered ONE ×2 (07:58→08:08)
[2020-10-18] MEDS ORDERED: fentaNYL 100 MCG/2 ML INJECTION (J3010) As Ordered ONE (07:58)
[2020-10-18] MEDS ORDERED: propofoL 200 MG/20 ML VIAL As Ordered ONE (07:58)
[2020-10-18] MEDS ORDERED: ACETAMINOPHEN 1000MG 100ML IV BTL (OFIRMEV) (J0131 PER 10MG) As Ordered ONE (08:11)
[2020-10-18] MEDS ORDERED: KETOROLAC 60MG 2ML VIAL As Ordered ONE (09:04)
[2020-10-18] MEDS ORDERED: SUGAMMADEX SODIUM 500 MG/5 ML VIAL (BRIDION) As Ordered ONE (09:04)
[2020-10-18] MEDS ORDERED: METOCLOPRAMIDE INJ 10MG/2ML VIAL (J2765 PER 1) IV PRN (10:30)
[2020-10-18] MEDS ORDERED: ONDANSETRON 4MG/2ML VIAL IV PRN ×2 (10:30)
[2020-10-18] MEDS ORDERED: LR 1,000 ML IV SCH ×2 (10:30)
--- NOTE | 2020-10-18 10:31 | ROOPDOC ---
[facility] Report Of Operation Report of Operation DATE OF PROCEDURE: 10/18/20 OPERATIVE REPORT: Preoperative diagnosis: Endometriosis, pelvic pain. Postoperative diagnosis: Same. Procedure: Robotic-assisted laparoscopic hysterectomy, bilateral salpingo- oophorectomy, cystoscopy. Surgeon: Héctor George M.D. Tip Out Worker: Bridgette Guzman NP EBL: 300 mL's. Findings: Stage IV endometriosis. Endometriosis implants scattered about on the parietal peritoneum. Large endometrioma of the left ovary. Adhesions of the sigmoid colon to the left posterior lower uterus; obliteration of the posterior cul de sac. Adhesions of the right ovary to the right pelvic side wall. Urine output: 150 mL's. Operative summary: Patient was taken to the operating room where general endotracheal anesthesia was induced. She was prepped and draped in sterile fashion in the dorsal lithotomy position. A Clement Catheter was placed. A V care uterine manipulator was placed. A Periumbilical incision was made with a sca lpel. A Veress needle was placed through this incision. Intra-abdominal location of Veress needle was assessed with saline filled syringe. A pneumoperitoneum was created. The Veress needle was removed. An 8 mm trocar using the Visiport was inserted through this incision. Three 8 mm suprapubic ports were placed under direct visualization. The patient was placed in Trendelenburg position. The da Jaida surgical robot was docked to the ports. Using the fenestrated bipolar instrument and Synchoseal, the round ligaments and utero-ovarian ligaments were coagulated and incised. Dense adhesions of the sigmoid colon to the posterior uterus were taken down with blunt and sharp dissection. The anterior and posterior leaves of the broad ligament were . Bladder flap was created. The uterine vessels were coagulated and incised. A colpotomy was created in the upper vagina at the level of the V care Cup. The specimen including the uterus, cervix was removed through the vagina. The IP ligaments were grasped and elevat ed. The ureters were able to be visualized away from the operative site. The IP ligaments and broad ligament attachments to the ovaries were taken down sharply. Both ovaries and fallopian tubes were placed in the vagina. The vaginal cuff was closed with #1 V-lock suture in a running fashion. The vaginal cuff was closed with #1 V lock suture in running fashion. Cystoscopy was performed using a 70 cystoscope. Bilateral ureteral jets were identified. no evidence of injury to the bladder. The cystoscope was removed. All instruments removed. The skin was closed with 4-0 Monocryl subcuticular sutures. Bridgette Guzman NP assisted with all aspects of the procedure. She helped position the patient. She helped insert the ports and manipulate the uterus. She removed the specimen. HÉCTOR GEORGE MD Oct 18, 2020 10:31
[2020-10-18] MEDS: oxyCODONE 5MG TAB PO PRN ×2 (10:35→11:05)
[2020-10-18] MEDS: fentaNYL 100 MCG/2 ML INJECTION (J3010) IV PRN ×4 (10:36→11:05)
[2020-10-18] MEDS: HYDROMORPHONE HCL 0.5 MG/ 0.5 ML SYRINGE (J1170 PER 1) IV PRN ×4 (11:10→11:50)
[2020-10-18] MEDS: KETOROLAC 30 MG/ML 1ML VIAL IV PRN ×2 (15:02→21:42)
[2020-10-18] MEDS: PERCOCET 5MG/325MG TAB PO PRN ×2 (15:03→22:58)
[2020-10-18] MEDS: MORPHINE 4 MG/ML 1ML VIAL/SYRINGE (J2270) IV PRN ×2 (16:20→20:49)
[2020-10-18] MEDS: DOCUSATE SODIUM 100 MG CAP PO SCH (20:49)
[2020-10-18] MEDS ORDERED: ZONISAMIDE 50 MG CAP (ZONEGRAN) PO SCH (21:00)
[2020-10-19 02:00] VITALS: BP 110/62
[2020-10-19] MEDS: MORPHINE 4 MG/ML 1ML VIAL/SYRINGE (J2270) IV PRN (04:31)
[2020-10-19 06:00] VITALS: BP 112/56
[2020-10-19] MEDS: KETOROLAC 30 MG/ML 1ML VIAL IV PRN (07:38)
[2020-10-19] MEDS ORDERED: OXYC1TAB23 PO (09:11)
[2020-10-19] MEDS: DOCUSATE SODIUM 100 MG CAP PO SCH (09:12)
[2020-10-19 10:00] VITALS: BP 97/54
== END 2020-10-19 12:05 | disposition home or self-care (01) ==
LOC: M SDC 06:11 → M MSPAV 12:23 → M SDC 10-19 12:05
PROVIDERS: ATTEND Specialist
DX: R10.2 Pelvic and perineal pain (principal); N80.0 Endometriosis of uterus; K66.0 Peritoneal adhesions (postprocedural) (postinfection); G43.909 Migraine, unspecified, not intractable, without status migrainosus; Z79.899 Other long term (current) drug therapy; Z91.030 Bee allergy status; Z91.013 Allergy to seafood; Z88.1 Allergy status to other antibiotic agents
CPT/HCPCS: 36415; 58571; 81025; 85027; 86850; 86900; 86901; 88307; 96361; 96374; 96375; 96376; J0131; J0690; J1100; J1170; J1885; J2250; J2270; J2405; J3010

== ENCOUNTER 2021-01-23 17:15 | Emergency (ER) | payer BC ==
[~2021-01-23] VITALS: Ht 170.2 cm; Wt 96.7 kg
[~2021-01-23 17:15] MED LIST changes: +GABA-282 PO; -GABA-843 PO; -LIDOCAINE 1% MDV 20ML VIAL SQ PRN; +ORIL150T PO
--- OUTSIDE RECORDS SUMMARY | 2021-01-23 17:21 | CCD ---
Author Author [facility] Organization [facility] Address Unknown Phone Unavailable Care Team Providers Care Child Protective Services Specialist Name Role Phone Anuel Aguero Unavailable PROBLEMS Type Condition ICD9-CM Code [id number] Code Onset Dates Condition S tatus SNOMED Code Notes Problem Melanocytic nevi of right lower limb, including hip D22.71 Active 954364574 Problem Melanocytic nevi of left upper limb, including shoulder D22.62 Active 392725740 Problem Melanocytic nevi of right upper limb, including shoulder D22.61 Active 738662270 Problem Melanocytic nevi of face D22.30 Active 4740671 04 Problem Melanocytic nevi of left lower limb, including hip D22.72 Active 512271350 Problem Endometriosis N80.9 Active 974362354 Problem Lentigines L81.4 Active 721888918 Problem Melanocytic nevi of trunk D22.5 Active 508087 002 Problem Ephelides L81.2 Active 581021118 Problem Nevus of buttock D22.5 Active 07421510 Problem Keratosis pilaris L85.8 Active 7004214 ALLERGIES Allergen (clinical drug ingredient) Drug/Non Drug Allergy do cumented on EMR Reaction Allergy Type Onset Date Status shellfish Anaphylaxis Non Drug Allergy Active azithromycin Azithromycin([facility] Code:[address]-45) stomach cramps Drug Allergy Active bees Anaphylaxis Non Drug Allergy Active ENCOUNTERS from 1987 to 2020-11-18 Encounter Location Date Provider Diagnosis [facility] [address] [place] [address] 14 Oct, 2020 Anuel Aguero Endometriosis N80.9 IMMUNIZATIONS No Information SOCIAL HISTORY Tobacco Use: Social History Observation Description Date Details (start date - stop date) Never Smoker Sex Assigned At : Social History Observation Description Sex Assigned At Unknown Alcohol Screening: Question Answer Notes Did you have a drink containing alcohol in the past year? Ye s Points 2 Interpretation Negative How often did you have six or more drinks on one occas ion in the past year? Less than monthly (1 point) How many drinks did you have on a typica l day when you were drinking in the past year? 1 or 2 (0 points) How often did you have a drink containing alcohol in t he past year? Monthly or less (1 point) Tobacco Use: Question Answer Notes Are you a: never smoker REASON FOR REFERRAL No Information VITAL SIGNS Weight 220.4 lbs Oct, Weight-kg 99.97 kg Oct, Height 67 in Oct, BMI 34.52 kg/m2 Oct, Blood pressure systolic 124 mm Hg Oct, Blood pressure diastolic 82 mm Hg Oct, MEDICATIONS Medication SIG (Take, Route, Frequency, Duration) Notes Start Da te End Date Status Multi For Her - as directed Orally N ot-Taking Orilissa 150 MG 1 tablet Orally Once a day for 30 day(s) 1 Jan, Not-Taking Colace 100 MG 1 capsule as needed Orally Once a day Not-Taking Lupron Depot (1-Month) 3.75 MG as directed Intramuscul ar one time per month for 180 days Jan, Not-Taking PROzac 20 MG 1 capsule Orally Once a day Active Ibuprofen 800 MG 1 tablet with food or milk a s needed Orally Three times a day for 10 days Sep, Not-Taking Riboflavin 100 MG 3 capsule Orally Once a day Active PROCEDURES No Information RESULTS No Results REASON FOR VISIT Possible Infected Incision MEDICAL (GENERAL) HISTORY Type Description Date Medical History ITP- in remission Medical History seasonal allergies Medical History endometriosis Surgical History HSG 02/2017 Surgical History Laparoscopy-endometriosis 02/2017 Surgical History back surgery [id number]-[id number] 01/2015 Hospitalization History childbirth 08/2018 Hospitalization History Surgery Goals Section No Information Health Concerns No Information MEDICAL EQUIPMENT No Information MENTAL STATUS No Information FUNCTIONAL STATUS No Information ASSESSMENTS Encounter Date Diagnosis Assessment Notes Treatment Notes Treatm ent Clinical Notes Oct, Endometriosis (ICD-10 - N80.9) PLAN OF TREATMENT Next Appt Details Provider Name:Anuel Aguero, 2020-12-03 02:00:00 PM, [address] [place], [address], Provider Name:Errol Arellano, 2020-11 09:15:00 AM, [address] [facility], [address] [place] [address], [place], [address], Insurance Providers Payer Name Payer Address Payer Phone Insured Name Patient Relati onship to Insured Coverage Start Date Coverage End Date [employer] [facility] [id number] [facility] [place] [id number] SHANNON VILLAFANA self
--- OUTSIDE RECORDS SUMMARY | 2021-01-23 17:21 | CCD | Continuity of Care Document ---
Author Cintia Sparks M.D. Organization Unknown Address [address] [place] [address] Phone [phone] Care Team Providers Care Electrical Design Technician Name Role Phone Job Rausch M.D. AUTM [phone] Problems Active Problems Provider Date Headache Lisa Recinos M.D. Onset: 01/02/2020 Social History Type Date Description Comments Sex Unknown Tobacco Use Start: Unknown Patient has never smoked Allergies, Adverse Reactions, Alerts Active Allergies Reaction Severity Comments Date Azithromycin 01/02/2020 Shellfish-Derived Products 0 01/02/2020 Bee Sting 01/02/2020 Medications Active Medications SIG Qnty Indications Ordering Provide r Date Zonisamide 25mg Capsules 1 tab morning and 2 tabs nightly 90caps Ace Claros M.D. 06/11/2020 Xanax 0.5mg Tablets 1 tab 15 mins prior to the scan; may repeat 30 minutes later if still anxiuos 2tabs Lisa Recinos M.D. 01/18/2020 Immunizations Description No Information Available Vital Signs Date Vital Result Comment 01/02/2020 9:54am Height 67 inches 5'7" Weight 210.00 lb BMI (Body Mass Index) 32.9 kg/m2 [place] Body Weight 135 lb Results Description No Information Available Procedures Date Code Description Status 09/30/2020 32907 Injection For Nerve Block, Other Peripheral Nerve Or Branch Completed 09/30/2020 16959 Injection For Nerve Block, Great er Occipital Nerve Completed 08/27/2020 53301 Injection For Nerve Block, Other Peripheral Nerve Or Branch Completed 08/27/2020 70397 Injection For Nerve Block, Great er Occipital Nerve Completed 07/23/2020 07101 Injection For Nerve Block, Other Peripheral Nerve Or Branch Completed 07/23/2020 47376 Injection For Nerve Block, Great er Occipital Nerve Completed 06/19/2020 75103 Injection For Nerve Block, Other Peripheral Nerve Or Branch Completed 06/19/2020 19303 Injection For Nerve Block, Great er Occipital Nerve Completed 2020 53969 Injection For Nerve Block, Other Peripheral Nerve Or Branch Completed 2020 08722 Injection For Nerve Block, Great er Occipital Nerve Completed Medical Devices Description No Information Available Encounters Type Date Location Provider Dx Diagnosis Office Visit 09/10/2020 8:15a Main office - [place] Lisa Recinos M.D. G47.51 Confusional arousals G43.809 Other migraine, not intracta ble, without status migrainosus G93.2 Benign intracranial hyperten winsome M54.81 Occipital neuralgia G44.40 Drug-induced headache, NEC, not intractable Office Visit 06/21/2020 8:15a Main office - [place] Lisa Recinos M.D. R42 Dizziness and giddiness G43.809 Other migraine, not intracta ble, without status migrainosus G93.2 Benign intracranial hyperten winsome R94.02 Abnormal brain scan R41.82 Altered mental status, unspe cified M54.81 Occipital neuralgia Assessments Date Code Description Provider 09/30/2020 M54.81 Occipital neuralgia Ace Claros M.D. 09/10/2020 G47.51 Confusional arousals Lisa Hill fKimberly 09/10/2020 G43.809 Other migraine, not intractable, without status migrainosus Lias Recinos M.D. 09/10/2020 G93.2 Benign intracranial hypertension Lisa Recinos M.D. 09/10/2020 M54.81 Occipital neuralgia Lisa Recinos M.D. 09/10/2020 G44.40 Drug-induced headach e, not elsewhere classified, not intractable Lisa Recinos M.D. 08/27/2020 M54.81 Occipital neuralgia Ace Claros M.D. 07/23/2020 M54.81 Occipital neuralgia Ace Claros M.D. 06/21/2020 R42 Dizziness and giddiness Lisa das M.D. 06/21/2020 G43.809 Other migraine, not intractable, without status migrainosus Lisa Recinos M.D. 06/21/2020 G93.2 Benign intracranial hypertension Lisa Recinos M.D. 06/21/2020 R94.02 Abnormal brain scan Lisa Recinos M.D. 06/21/2020 R41.82 Altered mental status, unspecifi ed Lisa Recinos M.D. 06/21/2020 M54.81 Occipital neuralgia Lisa Recinos M.D. 06/19/2020 M54.81 Occipital neuralgia Ace Claros M.D. 2020 M54.81 Occipital neuralgia Ace Claros M.D. Plan of Treatment Future Appointment(s):* 12/03/2020 3:30 pm - Ace Claros M.D. at Main office [facility] * 12/20/2020 8:30 am - Lisa Recinos M.D. at [facility] Functional Status Description No Information Available Mental Status Description No Information Available Referrals Description No Information Available
--- OUTSIDE RECORDS SUMMARY | 2021-01-23 17:21 | CCD | Continuity of Care Document ---
Author Author Cintia RECINOS M.D. Organization Unknown Address [address] [place] [address] Phone [phone] Care Team Providers Care Healthcare Consultant Name Role Phone Job Rausch M.D. AUTM [phone] Problems Active Problems Provider Date Headache Lisa Recinos M.D. Onset: 01/02/2020 Social History Type Date Description Comments Sex Unknown Tobacco Use Start: Unknown Patient has never smoked Allergies, Adverse Reactions, Alerts Active Allergies Reaction Severity Comments Date Azithromycin 01/02/2020 Shellfish-Derived Products 0 01/02/2020 Bee Sting 01/02/2020 Medications Active Medications SIG Qnty Indications Ordering Provide r Date Zonisamide 25mg Capsules take 1 capsul by mouth in the morning and 2 capsules nightly 90caps Cain Recinos M.D. 06/11/2020 Xanax 0.5mg Tablets 1 tab 15 mins prior to the scan; may repeat 30 minutes later if still anxiuos 2tabs Lisa Recinos M.D. 01/18/2020 Immunizations Description No Information Available Vital Signs Date Vital Result Comment 01/02/2020 9:54am Height 67 inches 5'7" Weight 210.00 lb BMI (Body Mass Index) 32.9 kg/m2 [place] Body Weight 135 lb Results Description No Information Available Procedures Date Code Description Status 12/03/2020 31351 Injection For Nerve Block, Other Peripheral Nerve Or Branch Completed 12/03/2020 67657 Injection For Nerve Block, Great er Occipital Nerve Completed 10/30/2020 39338 Injection For Nerve Block, Other Peripheral Nerve Or Branch Completed 10/30/2020 04134 Injection For Nerve Block, Great er Occipital Nerve Completed 09/30/2020 23872 Injection For Nerve Block, Other Peripheral Nerve Or Branch Completed 09/30/2020 68352 Injection For Nerve Block, Great er Occipital Nerve Completed 08/27/2020 46106 Injection For Nerve Block, Other Peripheral Nerve Or Branch Completed 08/27/2020 12486 Injection For Nerve Block, Great er Occipital Nerve Completed 07/23/2020 19668 Injection For Nerve Block, Other Peripheral Nerve Or Branch Completed 07/23/2020 98002 Injection For Nerve Block, Great er Occipital Nerve Completed Medical Devices Description No Information Available Encounters Type Date Location Provider Dx Diagnosis Office Visit 12/20/2020 8:30a [place] Rec[place] M.[place]. R42 Dizziness and giddiness G43.809 Other migraine, not intracta ble, without status migrainosus G93.2 Benign intracranial hyperten winsome H53.8 Other visual disturbances M54.81 Occipital neuralgia Office Visit 09/10/2020 8:15a [place] Rec[place] M.[place]. G47.51 Confusional arousals G43.809 Other migraine, not intracta ble, without status migrainosus G93.2 Benign intracranial hyperten winsome M54.81 Occipital neuralgia G44.40 Drug-induced headache, NEC, not intractable Assessments Date Code Description Provider 12/20/2020 R42 Dizziness and giddiness Lisa das M.D. 12/20/2020 G43.809 Other migraine, not intractable, without status migrainbernardo Recinos M.D. 12/20/2020 G93.2 Benign intracranial hypertension Lisa Recinos M.D. 12/20/2020 H53.8 Other visual disturbances Lisa Recinos M.D. 12/20/2020 M54.81 Occipital neuralgia Lisa Recinos M.D. 12/03/2020 M54.81 Occipital neuralgia Ace Claros M.D. 10/30/2020 M54.81 Occipital neuralgia Ace Claros M.D. 09/30/2020 M54.81 Occipital neuralgia Ace Claros M.D. 09/10/2020 G47.51 Confusional arousals Lisa aponte M.D. 09/10/2020 G43.809 Other migraine, not intractable, without status migrainosus Lisa Recinos M.D. 09/10/2020 G93.2 Benign intracranial hypertension Lisa Recinos M.D. 09/10/2020 M54.81 Occipital neuralgia Lisa Recinos M.D. 09/10/2020 G44.40 Drug-induced headach e, not elsewhere classified, not intractable Lisa Recinos M.D. 08/27/2020 M54.81 Occipital neuralgia Ace Claros M.D. 07/23/2020 M54.81 Occipital neuralgia Ace Claros M.D. Plan of Treatment Future Appointment(s):* 02/25/2021 8:30 am - Lisa Recinos M.D. at [facility] * 03/10/2021 3:00 pm - Ace Claros M.D. at [facility] * 02/04/2021 3:15 pm - Ace Claros M.D. at [facility] * 01/07/2021 3:30 pm - Ace Claros M.D. at [facility] Functional Status Description No Information Available Mental Status Description No Information Available Referrals Description No Information Available
--- OUTSIDE RECORDS SUMMARY | 2021-01-23 17:21 | CCD | Continuity of Care Document ---
Author Author Cintia CLAROS M.D. Organization Unknown Address [address] [place] [address] Phone [phone] Care Team Providers Care Product Development Manager Name Role Phone Job Rausch M.D. AUTM [phone] Problems Active Problems Provider Date Headache Lisa Recinos M.D. Onset: 01/02/2020 Social History Type Date Description Comments Sex Unknown Tobacco Use Start: Unknown Patient has never smoked Allergies, Adverse Reactions, Alerts Active Allergies Reaction Severity Comments Date Azithromycin 01/02/2020 Shellfish-Derived Products 0 01/02/2020 Bee Sting 01/02/2020 Medications Active Medications SIG Qnty Indications Ordering Provide r Date Zonisamide 25mg Capsules Take 1 Capsul By Mouth In The Morning And 2 Capsules Nightly 90caps [place]s in [place] Claros 06/11/2020 Xanax 0.5mg Tablets 1 tab 15 mins prior to the scan; may repeat 30 minutes later if still anxiuos 2tabs Lisa Recinos M.D. 01/18/2020 Immunizations Description No Information Available Vital Signs Date Vital Result Comment 01/02/2020 9:54am Height 67 inches 5'7" Weight 210.00 lb BMI (Body Mass Index) 32.9 kg/m2 [place] Body Weight 135 lb Results Description No Information Available Procedures Date Code Description Status 12/03/2020 94102 Injection For Nerve Block, Other Peripheral Nerve Or Branch Completed 12/03/2020 35396 Injection For Nerve Block, Great er Occipital Nerve Completed 10/30/2020 08014 Injection For Nerve Block, Other Peripheral Nerve Or Branch Completed 10/30/2020 42984 Injection For Nerve Block, Great er Occipital Nerve Completed 09/30/2020 47196 Injection For Nerve Block, Other Peripheral Nerve Or Branch Completed 09/30/2020 82495 Injection For Nerve Block, Great er Occipital Nerve Completed 08/27/2020 17458 Injection For Nerve Block, Other Peripheral Nerve Or Branch Completed 08/27/2020 39069 Injection For Nerve Block, Great er Occipital Nerve Completed 07/23/2020 20784 Injection For Nerve Block, Other Peripheral Nerve Or Branch Completed 07/23/2020 37471 Injection For Nerve Block, Great er Occipital Nerve Completed 06/19/2020 39010 Injection For Nerve Block, Other Peripheral Nerve Or Branch Completed 06/19/2020 14273 Injection For Nerve Block, Great er Occipital Nerve Completed Medical Devices Description No Information Available Encounters Type Date Location Provider Dx Diagnosis Office Visit 09/10/2020 8:15a Main office - [place] Lisa Recinos M.D. G47.51 Confusional arousals G43.809 Other migraine, not intracta ble, without status migrainosus G93.2 Benign intracranial hyperten winsome M54.81 Occipital neuralgia G44.40 Drug-induced headache, NEC, not intractable Office Visit 06/21/2020 8:15a Main office - [place] Lisa Recinos M.D. R42 Dizziness and giddiness G43.809 Other migraine, not intracta ble, without status migrainosus G93.2 Benign intracranial hyperten winsome R94.02 Abnormal brain scan R41.82 Altered mental status, unspe cified M54.81 Occipital neuralgia Assessments Date Code Description Provider 12/03/2020 M54.81 Occipital neuralgia Ace Claros M.D. [...] M.D. 06/21/2020 R42 Dizziness and giddiness Lisa L Kimberly das 06/21/2020 G43.809 Other migraine, not intractable, without status migrainosus Lisa Recinos M.D. 06/21/2020 G93.2 Benign intracranial hypertension Lisa Recinos M.D. 06/21/2020 R94.02 Abnormal brain scan Lisa Recinos M.D. 06/21/2020 R41.82 Altered mental status, unspecifi ed Lisa Recinos M.D. 06/21/2020 M54.81 Occipital neuralgia Lisa Recinos M.D. 06/19/2020 M54.81 Occipital neuralgia Ace Claros M.D. Plan of Treatment Future Appointment(s):* 03/10/2021 3:00 pm - Ace Claros M.D. at [facility] * 02/04/2021 3:15 pm - Ace Claros M.D. at [facility] * 01/07/2021 3:30 pm - Ace Claros M.D. at [facility] * 12/20/2020 8:30 am - Lisa Recinos M.D. at [facility] Functional Status Description No Information Available Mental Status Description No Information Available Referrals Description No Information Available
--- OUTSIDE RECORDS SUMMARY | 2021-01-23 17:21 | CCD ---
Continuity of Care Document (CCD) Created on: 01/15/2021 Cintia Neri External Reference #: [id number] : [id number] Sex: Female Author Author Cintia WEST M.D. Organization Unknown Address [address] [address] Phone [phone] Problems Active Problems Provider Date Peptic reflux disease Sommer Sandoval- Onset: 012 Benign intracranial hypertension Job West M.D. Ons et: 10/16/2015 Social History Type Date Description Comments Sex Unknown ETOH Use Drinks 1-2 glasses beer or wine socially Recreational Drug Use Denies Drug Use Tobacco Use Start: Unknown Patient has never smoked Allergies, Adverse Reactions, Alerts Active Allergies Reaction Severity Comments Date Bee Sting 07/07/2007 Shellfish-derived Products throat swellin g 04/08/2010 Zithromax 12/05/2014 Medications Active Medications SIG Qnty Indications Ordering Provide r Date Prozac 40mg Capsules 1 by mouth every morning 90caps Job West M.D. 07/15/20 20 Zonisamide 25mg Capsules 2 p. o. q am Unknown Vitamin B-2 100mg Tablets 4 p .o. qd Unknown Estrace 1mg Tablets 1 tab by mouth once a day Unknown Medications Administered in Office Medication SIG Qnty Indications Ordering Provider Date Injection (SC)/(Im) Injection Sommer Sandoval 12/10/2011 Immunizations CPT Code Status Date Vaccine Lot # [id number] Given 04/13/2007 PPD Tuberculosis Intradermal Vital Signs Date Vital Result Comment 01/15/2021 3:51pm BP Systolic 114 mmHg BP Diastolic 72 mmHg Body Temperature 98.2 F Heart Rate 88 /min Respiratory Rate 18 /min Height 67 inches 5'7" Weight 212.00 lb [place] Body Weight 135 lb BMI (Body Mass Index) 33.2 kg/m2 O2 % BldC Oximetry 98 % 07/15/2020 4:10pm BP Systolic 120 mmHg BP Diastolic 76 mmHg Body Temperature 97.9 F Heart Rate 78 /min Respiratory Rate 18 /min Height 67 inches 5'7" Weight 214.00 lb [place] Body Weight 135 lb BMI (Body Mass Index) 33.5 kg/m2 O2 % BldC Oximetry 98 % Results Test Acquired Date Facility Test Result H/L Range Note Complete Blood Count 10/18/2020 [facility] ( Interface) [phone] White Blood Count 8.5 10 Normal 4.0-10.0 Red Blood Count 4.57 10 Normal 4.00-5.40 Hemoglobin 14.1 g/dL Normal 12.0-15.5 Hematocrit 43.5 % Normal 36.0-47.0 Mean Corpuscular Volume 95.2 fl Normal 80.0-96.0 Mean Corpuscular Hemoglobin 30.9 pg Normal 27.0-33.0 Mean Corpuscular HGB Conc 32.4 g/dL Normal 32.0-36.5 Red Cell Distribution Width 13.3 % Normal 11.5-14.5 Platelet Count, Automated 375 10 Normal 150-450 Nucleated Red Blood Cell % 0.0 % Normal 0-0 Type & Screen -Incl Blood Type,Surinder,AB SC 10/18/2020 [facility] (Interface) [phone] Blood Type O POSITIVE Normal AB Screen (Indirect Gopi)Vis NEGATIVE Normal Procedures Description No Information Available Medical Devices Description No Information Available Encounters Type Date Location Provider Dx Diagnosis Office Visit 01/15/2021 3:40p [place] [facility] Job West M. D. G43.909 Migraine, unsp, not intractable, without status migrainosus Assessments Date Code Description Provider 01/15/2021 G43.909 Migraine, unspecifie d, not intractable, without status migrainosus Job West M.D. Plan of Treatment No Information Available Functional Status Description No Information Available Mental Status Description No Information Available Referrals Description No Information Available
--- OUTSIDE RECORDS SUMMARY | 2021-01-23 17:21 | CCD ---
Author Author [facility] Organization [facility] Address Unknown Phone Unavailable Care Team Providers Care Validation Technician Name Role Phone Anuel Aguero Unavailable PROBLEMS Type Condition ICD9-CM Code HIE25-YP Code Onset Dates Condition S tatus SNOMED Code Notes Problem Melanocytic nevi of right lower limb, including hip D22.71 Active 470511044 Problem Melanocytic nevi of left upper limb, including shoulder D22.62 Active 820597809 Problem Melanocytic nevi of right upper limb, including shoulder D22.61 Active 994916123 Problem Melanocytic nevi of face D22.30 Active 6416465 04 Problem Melanocytic nevi of left lower limb, including hip D22.72 Active 571156756 Problem Endometriosis N80.9 Active 033227262 Problem Lentigines L81.4 Active 798203226 Problem Melanocytic nevi of trunk D22.5 Active 479994 002 Problem Ephelides L81.2 Active 902445840 Problem Nevus of buttock D22.5 Active 83097601 Problem Keratosis pilaris L85.8 Active 0121764 ALLERGIES Allergen (clinical drug ingredient) Drug/Non Drug Allergy do cumented on EMR Reaction Allergy Type Onset Date Status shellfish Anaphylaxis Non Drug Allergy Active azithromycin Azithromycin([facility] Code:[address]-03) stomach cramps Drug Allergy Active bees Anaphylaxis Non Drug Allergy Active ENCOUNTERS from 1987 to 2020-11-06 Encounter Location Date Provider Diagnosis [facility] [address] [place] [address] Sep, Anuel Aguero Endometriosis N80.9 IMMUNIZATIONS No Information [...] FOR REFERRAL No Information VITAL SIGNS Weight 218.8 lbs Sep, Weight-kg 99.25 kg Sep, Height 67 in Sep, BMI 34.27 kg/m2 Sep, Blood pressure systolic 100 mm Hg Sep, Blood pressure diastolic 70 mm Hg Sep, MEDICATIONS Medication SIG (Take, Route, Frequency, Duration) Notes Start Da te End Date Status Orilissa 150 MG 1 tablet Orally Once a day for 30 day(s) 1 Jan, Not-Taking Lupron Depot (1-Month) 3.75 MG as directed Intramuscul ar one time per month for 180 days Jan, Active Multi For Her - as directed Orally N ot-Taking PROzac 20 MG 1 capsule Orally Once a day Active Riboflavin 100 MG 3 capsule Orally Once a day Active Colace 100 MG 1 capsule as needed Orally Once a day Active Ibuprofen 800 MG 1 tablet with food or milk a s needed Orally Three times a day for 10 days Sep, Active PROCEDURES No Information RESULTS No Results REASON FOR VISIT 2WK POSTOP MEDICAL (GENERAL) HISTORY Type Description Date Medical [...] Notes Treatment Notes Treatm ent Clinical Notes Sep, Endometriosis (ICD-10 - N80.9) PLAN OF TREATMENT Next Appt Details Provider Name:Anuel Aguero, 2020-12-03 02:00:00 PM, [address] [place], [address], Provider Name:Errol Arellano, 2020-11 09:15:00 AM, [address] [facility], [address] [place] [address], [place], [address], Insurance Providers Payer Name Payer Address Payer Phone Insured Name Patient Relati onship to Insured Coverage Start Date Coverage End Date BCBS ADELITA MURRAY O [id number] [facility] [place] [id number] SHANNON VILLAFANA self
--- OUTSIDE RECORDS SUMMARY | 2021-01-23 17:21 | CCD | Continuity of Care Document ---
Author Author Cintia RECINOS M.D. Organization Unknown Address [address] [place] [address] Phone [phone] Care Team Providers Care Science And Operations Officer Name Role Phone Job Rausch M.D. AUTM [phone] Problems Active Problems Provider Date Headache Lisa [...] lb BMI (Body Mass Index) 32.9 kg/m2 [place] Body Weight 135 lb Results Description No Information Available Procedures Date Code Description Status 12/03/2020 32380 Injection For Nerve Block, Other Peripheral Nerve Or Branch Completed 12/03/2020 64356 Injection For Nerve Block, Great er Occipital Nerve Completed 10/30/2020 81010 Injection For Nerve Block, Other Peripheral Nerve Or Branch Completed 10/30/2020 12891 Injection For Nerve Block, Great er Occipital Nerve Completed 09/30/2020 46897 Injection For Nerve Block, Other Peripheral Nerve Or Branch Completed 09/30/2020 30776 Injection For Nerve Block, Great er Occipital Nerve Completed 08/27/2020 08320 Injection For Nerve Block, Other Peripheral Nerve Or Branch Completed 08/27/2020 77946 Injection For Nerve Block, Great er Occipital Nerve Completed 07/23/2020 60673 Injection For Nerve Block, Other Peripheral Nerve Or Branch Completed 07/23/2020 80428 Injection For Nerve Block, Great er Occipital Nerve Completed Medical Devices Description No Information Available Encounters Type Date Location Provider Dx Diagnosis Office Visit 09/10/2020 8:15a Main office - [place] Lisa Recinos M.D. G47.51 Confusional arousals G43.809 Other migraine, not intracta ble, without status migrainosus G93.2 Benign intracranial hyperten winsome M54.81 Occipital neuralgia G44.40 Drug-induced headache, NEC, not intractable Office Visit 06/21/2020 8:15a [place] M.D. R42 Dizziness and giddiness G43.809 [...] 06/21/2020 M54.81 Occipital neuralgia Lisa Recinos M.D. Plan of Treatment Future Appointment(s):* 03/10/2021 3:00 pm - Ace Claros M.D. at [facility] * 02/04/2021 3:15 pm - Ace Claros M.D. at [facility] * 01/07/2021 3:30 pm - Ace Claors M.D. at [facility] Functional Status Description No Information Available Mental Status Description No Information Available Referrals Description No Information Available
--- OUTSIDE RECORDS SUMMARY | 2021-01-23 17:21 | CCD ---
Author Author [facility] Organization [facility] Address Unknown Phone Unavailable Care Team Providers Care Banana Handler Name Role Phone Laci Anuel Unavailable PROBLEMS Type Condition ICD9-CM Code [id number] Code Onset Dates Condition S tatus SNOMED Code Notes Problem Melanocytic nevi of right lower limb, including hip D22.71 Active 411989453 Problem Melanocytic nevi of left upper limb, including shoulder D22.62 Active 964507135 Problem Melanocytic nevi of right upper limb, including shoulder D22.61 Active 886474040 Problem Melanocytic nevi of face D22.30 Active 0689084 04 Problem Melanocytic nevi of left lower limb, including hip D22.72 Active 942715733 Problem Endometriosis N80.9 Active 025100133 Problem Lentigines L81.4 Active 429963825 Problem Melanocytic nevi of trunk D22.5 Active 492901 002 Problem Ephelides L81.2 Active 692984654 Problem Nevus of buttock D22.5 Active 13532526 Problem Keratosis pilaris L85.8 Active 0759206 ALLERGIES Allergen (clinical drug ingredient) Drug/Non Drug Allergy do cumented on EMR Reaction Allergy Type Onset Date Status shellfish Anaphylaxis Non Drug Allergy Active azithromycin Azithromycin([facility] Code:[address]-77) stomach cramps Drug Allergy Active bees Anaphylaxis Non Drug Allergy Active ENCOUNTERS from 1987 to 2020-12-18 Encounter Location Date Provider Diagnosis [facility] [address] [place] [id number] Nov, Anuel Aguero Endometriosis N80.9 IMMUNIZATIONS No Information [...] No Information VITAL SIGNS Weight 218.8 lbs Nov, Weight-kg 99.25 kg Nov, Height 67 in Nov, BMI 34.27 kg/m2 Nov, Blood pressure systolic 132 mm Hg Nov, Blood pressure diastolic 90 mm Hg Nov, MEDICATIONS Medication SIG (Take, Route, Frequency, Duration) Notes Start Da te End Date Status Zonisamide 25 MG 2 capsules Orally Twice a day Active Orilissa 150 MG 1 tablet Orally Once a day for 30 day(s) 1 Jan, Not-Taking Estrace 1 MG 1 tablet Orally Once a day for 90 day(s) 2020 Active Colace 100 MG 1 capsule as needed Orally Once a day Not-Taking Zonisamide 50 MG 1 capsule Orally Twice a day Active Multi For Her - as directed Orally N ot-Taking Riboflavin 100 MG 3 capsule Orally Once a day Active PROzac 20 MG 1 capsule Orally Once a day Active Lupron Depot (1-Month) 3.75 MG as directed Intramuscul ar one time per month for 180 days Jan, Not-Taking Ibuprofen 800 MG 1 tablet with food or milk a s needed Orally Three times a day for 10 days Sep, Not-Taking PROCEDURES No Information RESULTS No Results REASON FOR VISIT 6WK POST OP MEDICAL (GENERAL) HISTORY Type Description Date Medical [...] Notes Treatment Notes Treatm ent Clinical Notes Nov, Endometriosis (ICD-10 - N80.9) PLAN OF TREATMENT Medication Medication Name Sig Start Date Stop Date Estrace 1 MG 1 tablet Orally Once a day for 90 day(s) Nov, Next Appt Details Provider Name:Errol Arellano, 2020-11 09:15:00 AM, [address] [facility], [address] Floor, [place], [address], Insurance Providers Payer Name Payer Address Payer Phone Insured Name Patient Relati onship to Insured Coverage Start Date Coverage End Date [facility] [place] [id number] [facility] [place] [id number] SHANNON VILLAFANA self
--- OUTSIDE RECORDS SUMMARY | 2021-01-23 17:21 | CCD | Continuity of Care Document ---
Author Author Cintia CLAROS M.D. Organization Unknown Address [address] [place] [address] Phone [phone] Care Team Providers Care Manufacturing Manager Name Role Phone Job Rausch M.D. AUTM [phone] Problems Active Problems Provider Date Headache Lisa [...] lb BMI (Body Mass Index) 32.9 kg/m2 [place] Body Weight 135 lb Results Description No Information Available Procedures Date Code Description Status 01/07/2021 44456 Injection For Nerve Block, Other Peripheral Nerve Or Branch Completed 01/07/2021 60697 Injection For Nerve Block, Great er Occipital Nerve Completed 12/03/2020 42023 Injection For Nerve Block, Other Peripheral Nerve Or Branch Completed 12/03/2020 63675 Injection For Nerve Block, Great er Occipital Nerve Completed 10/30/2020 48137 Injection For Nerve Block, Other Peripheral Nerve Or Branch Completed 10/30/2020 22812 Injection For Nerve Block, Great er Occipital Nerve Completed 09/30/2020 97890 Injection For Nerve Block, Other Peripheral Nerve Or Branch Completed 09/30/2020 64209 Injection For Nerve Block, Great er Occipital Nerve Completed 08/27/2020 91548 Injection For Nerve Block, Other Peripheral Nerve Or Branch Completed 08/27/2020 77080 Injection For Nerve Block, Great er Occipital Nerve Completed 07/23/2020 66202 Injection For Nerve Block, Other Peripheral Nerve Or Branch Completed 07/23/2020 14535 Injection For Nerve Block, Great er Occipital Nerve Completed Medical Devices Description No Information Available Encounters Type Date Location Provider Dx Diagnosis Office Visit 12/20/2020 8:30a Main office - [place] Recinos M.D. R42 Dizziness and giddiness G43.809 Other migraine, not intracta ble, without status migrainosus G93.2 Benign intracranial hyperten winsome H53.8 Other visual disturbances M54.81 Occipital neuralgia Office Visit 09/10/2020 8:15a Main office - [place] Recinos M.D. G47.51 Confusional arousals G43.809 Other migraine, not intracta ble, without status migrainosus G93.2 Benign intracranial hyperten winsome M54.81 Occipital neuralgia G44.40 Drug-induced headache, NEC, not intractable Assessments Date Code Description Provider 01/07/2021 M54.81 Occipital neuralgia Ace Claros M.D. 12/20/2020 R42 Dizziness and giddiness Lisa das M.D. 12/20/2020 G43.809 Other migraine, not intractable, without status migrainosus Lisa Recinos M.D. 12/20/2020 G93.2 Benign intracranial hypertension Lisa Recinos M.D. 12/20/2020 H53.8 Other visual disturbances Lisa Recinos M.D. 12/20/2020 M54.81 Occipital neuralgia Lisa Recinso M.D. 12/03/2020 M54.81 Occipital neuralgia Ace Claros [...] Claros M.D. Plan of Treatment Future Appointment(s):* 04/09/2021 3:15 pm - Ace Claros M.D. at [facility] * 02/25/2021 8:30 am - Lisa Recinos M.D. at [facility] * 03/10/2021 3:00 pm - Ace Claros M.D. at [facility] * 02/04/2021 3:15 pm - Ace Claros M.D. at [facility] Functional Status Description No Information Available Mental Status Description No Information Available Referrals Refer to Reason for Referral Status Appt Date Ace Claros M.D. Created [facility] [address] [place] [address] [phone]
--- OUTSIDE RECORDS SUMMARY | 2021-01-23 17:21 | CCD | Continuity of Care Document ---
Author Author Cintia WEST M.D. Organization Unknown Address [address] [address] Phone [phone] Problems Active Problems Provider Date Peptic reflux disease Sommer Sandoval Onset: 012 Benign intracranial hypertension Job West [...] West M.D. 07/15/20 20 Zonisamide 25mg Capsules 1 p.o. q am and 2 qhs Unknown Orilissa 150mg Tablets as dir ected Unknown Vitamin B-2 100mg Tablets 3 p .o. qd Unknown Medications Administered in Office Medication SIG Qnty Indications Ordering Provider Date Injection (SC)/(Im) Injection Sommer Sandoval 12/10/2011 Immunizations CPT Code Status Date Vaccine Lot # [id number] Given 04/13/2007 PPD Tuberculosis Intradermal Vital Signs Date Vital Result Comment 07/15/2020 4:10pm BP Systolic 120 mmHg BP Diastolic 76 mmHg Body Temperature 97.9 F Heart Rate 78 /min Respiratory Rate 18 /min Height 67 inches 5'7" Weight 214.00 lb [place] Body Weight 135 lb BMI (Body Mass Index) 33.5 kg/m2 O2 % BldC Oximetry 98 % 06/12/2020 3:52pm BP Systolic 124 mmHg BP Diastolic 82 mmHg Body Temperature 98.4 F Heart Rate 72 /min Respiratory Rate 14 /min Weight 210.00 lb Results Test Acquired Date Facility Test Result H/L Range Note Complete Blood Count 10/18/2020 [facility] ( Interface) [phone] White Blood Count 8.5 10 Normal 4.0-10.0 [...] & Screen -Incl Blood Type,Surinder,AB SC 10/18/2020 [facility] (Interface) [phone] Blood Type O POSITIVE Normal AB Screen (Indirect Gopi)Vis NEGATIVE Normal Procedures Description No Information Available Medical Devices Description No Information Available Encounters Type Date Location Provider Dx Diagnosis Office Visit 07/15/2020 4:00p [facility] Job West M. D. G43.909 Migraine, unsp, not intractable, without status migrainosus Assessments Date Code Description Provider 07/15/2020 G43.909 Migraine, unspecifie d, not intractable, without status migrainosus Job West M.D. Plan of Treatment Future Appointment(s):* 01/15/2021 3:40 pm - Job West M.D. at [facility] Functional Status Description No Information Available Mental Status Description No Information Available Referrals Description No Information Available
--- OUTSIDE RECORDS SUMMARY | 2021-01-23 17:21 | CCD | Continuity of Care Document ---
Author Author Cintia CLAROS M.D. Organization Unknown Address [address] [place] [address] Phone [phone] Care Team Providers Care Curb Setter Name Role Phone Job Rausch M.D. AUTM [phone] Problems Active Problems Provider Date Headache Lisa [...] lb BMI (Body Mass Index) 32.9 kg/m2 [place] Body Weight 135 lb Results Description No Information Available Procedures Date Code Description Status 10/30/2020 10674 Injection For Nerve Block, Other Peripheral Nerve Or Branch Completed 10/30/2020 39514 Injection For Nerve Block, Great er Occipital Nerve Completed 09/30/2020 66255 Injection For Nerve Block, Other Peripheral Nerve Or Branch Completed 09/30/2020 90643 Injection For Nerve Block, Great er Occipital Nerve Completed 08/27/2020 03494 Injection For Nerve Block, Other Peripheral Nerve Or Branch Completed 08/27/2020 16318 Injection For Nerve Block, Great er Occipital Nerve Completed 07/23/2020 10288 Injection For Nerve Block, Other Peripheral Nerve Or Branch Completed 07/23/2020 63430 Injection For Nerve Block, Great er Occipital Nerve Completed 06/19/2020 76503 Injection For Nerve Block, Other Peripheral Nerve Or Branch Completed 06/19/2020 09905 Injection For Nerve Block, Great er Occipital Nerve Completed Medical Devices Description No Information Available Encounters Type Date Location Provider Dx Diagnosis Office Visit 09/10/2020 8:15a Main office - [place] Recinos M.D. G47.51 Confusional arousals G43.809 Other migraine, not intracta ble, without status migrainosus G93.2 Benign intracranial hyperten winsome M54.81 Occipital neuralgia G44.40 Drug-induced headache, NEC, not intractable Office Visit 06/21/2020 8:15a Main office - [place] Recinos M.D. R42 Dizziness and giddiness G43.809 Other migraine, not intracta ble, without status migrainosus G93.2 Benign intracranial hyperten winsome R94.02 Abnormal brain scan R41.82 Altered mental status, unspe cified M54.81 Occipital neuralgia Assessments Date Code Description Provider 10/30/2020 M54.81 Occipital neuralgia Ace Claros M.D. [...] Claros M.D. Plan of Treatment Future Appointment(s):* 01/07/2021 3:30 pm - Ace Claros M.D. at [facility] * 12/20/2020 8:30 am - Lisa Recinos M.D. at [facility] Functional Status Description No Information Available Mental Status Description No Information Available Referrals Description No Information Available
--- OUTSIDE RECORDS SUMMARY | 2021-01-23 17:21 | CCD | Continuity of Care Document ---
Author Author Cintia CLAROS M.D. Organization Unknown Address [address] [place] [address] Phone [phone] Care Team Providers Care Manager Study Name Role Phone Job Rausch M.D. AUTM [phone] Problems Active Problems Provider Date Headache Lisa [...] lb BMI (Body Mass Index) 32.9 kg/m2 [place] Body Weight 135 lb Results Description No Information Available Procedures Date Code Description Status 12/03/2020 20612 Injection For Nerve Block, Other Peripheral Nerve Or Branch Completed 12/03/2020 79933 Injection For Nerve Block, Great er Occipital Nerve Completed 10/30/2020 79150 Injection For Nerve Block, Other Peripheral Nerve Or Branch Completed 10/30/2020 71374 Injection For Nerve Block, Great er Occipital Nerve Completed 09/30/2020 39266 Injection For Nerve Block, Other Peripheral Nerve Or Branch Completed 09/30/2020 56708 Injection For Nerve Block, Great er Occipital Nerve Completed 08/27/2020 62035 Injection For Nerve Block, Other Peripheral Nerve Or Branch Completed 08/27/2020 14369 Injection For Nerve Block, Great er Occipital Nerve Completed 07/23/2020 96173 Injection For Nerve Block, Other Peripheral Nerve Or Branch Completed 07/23/2020 03720 Injection For Nerve Block, Great er Occipital Nerve Completed Medical Devices Description No Information Available Encounters Type Date Location Provider Dx Diagnosis Office Visit 12/20/2020 8:30a Main office - [place] Rec[place] M.D. R42 Dizziness and giddiness G43.809 Other migraine, not intracta ble, without status migrainosus G93.2 Benign intracranial hyperten winsome H53.8 Other visual disturbances M54.81 Occipital neuralgia Office Visit 09/10/2020 8:15a Main office - [place] Rec[place] M.D. G47.51 Confusional arousals G43.809 Other [...] 8:30 am - Lisa Recinos M.D. at [facility] * 03/10/2021 3:00 pm - Ace Claros M.D. at [facility] * 02/04/2021 3:15 pm - Ace Claros M.D. at [facility] Functional Status Description No Information Available Mental Status Description No Information Available Referrals Description No Information Available
--- OUTSIDE RECORDS SUMMARY | 2021-01-23 17:21 | CCD | Continuity of Care Document ---
Author Cintia Sparks M.D. Organization Unknown Address [address] [place] [address] Phone [phone] Care Team Providers Care Upholstery Department Supervisor Name Role Phone Job Rausch M.D. AUTM [phone] Problems Active Problems Provider Date Headache Lisa [...] lb BMI (Body Mass Index) 32.9 kg/m2 [place] Body Weight 135 lb Results Description No Information Available Procedures Date Code Description Status 10/30/2020 29927 Injection For Nerve Block, Other Peripheral Nerve Or Branch Completed 10/30/2020 44492 Injection For Nerve Block, Great er Occipital Nerve Completed 09/30/2020 81520 Injection For Nerve Block, Other Peripheral Nerve Or Branch Completed 09/30/2020 75625 Injection For Nerve Block, Great er Occipital Nerve Completed 08/27/2020 13546 Injection For Nerve Block, Other Peripheral Nerve Or Branch Completed 08/27/2020 22178 Injection For Nerve Block, Great er Occipital Nerve Completed 07/23/2020 92482 Injection For Nerve Block, Other Peripheral Nerve Or Branch Completed 07/23/2020 03929 Injection For Nerve Block, Great er Occipital Nerve Completed 06/19/2020 48455 Injection For Nerve Block, Other Peripheral Nerve Or Branch Completed 06/19/2020 53835 Injection For Nerve Block, Great er Occipital Nerve Completed 2020 56538 Injection For Nerve Block, Other Peripheral Nerve Or Branch Completed 2020 22288 Injection For Nerve Block, Great er Occipital Nerve Completed Medical Devices Description No Information Available Encounters Type Date Location Provider Dx Diagnosis Office Visit 09/10/2020 8:15a [place] office [place] M.[place]. G47.51 Confusional arousals G43.809 Other migraine, not intracta ble, without status migrainosus G93.2 Benign intracranial hyperten winsome M54.81 Occipital neuralgia G44.40 Drug-induced headache, NEC, not intractable Office Visit 06/21/2020 8:15a Main office - [place] Rec[place] M.D. R42 Dizziness and giddiness G43.809 [...] Claros M.D. 06/21/2020 R42 Dizziness and giddiness iLsa Birgit Kimberly das 06/21/2020 G43.809 Other migraine, not [...] 3:30 pm - Ace Claros M.D. at [facility] * 12/03/2020 3:30 pm - Ace Claros M.D. at [facility] * 12/20/2020 8:30 am - Lisa Recinos M.D. at [facility] Functional Status Description No Information Available Mental Status Description No Information Available Referrals Description No Information Available
--- OUTSIDE RECORDS SUMMARY | 2021-01-23 17:22 | CCD ---
Author Author [facility] Organization [facility] Address Unknown Phone Unavailable Care Team Providers Care Packer And Carry Out Name Role Phone MILNER, JAVIER Unavailable Unavailable MILNER, JAVIER Unavailable Unavailable MILNER, JAVIER Unavailable Unavailable MILNER, JAVIER Unavailable Unavailable MILNER, JAVIER Unavailable Unavailable MILNER, JAVIER Unavailable Unavailable MILNER, JAVIER Unavailable Unavailable MILNER, JAVIER Unavailable Unavailable MILNER, JAVIER Unavailable Unavailable MILNER, JAVIER Unavailable Unavailable MILNER, JAVIER Unavailable Unavailable MILNER, JAVIER Unavailable Unavailable MILNER, JAVIER Unavailable Unavailable MILNER, JAVIER Unavailable Unavailable MILNER, JAVIER Unavailable Unavailable MILNER, JAVIER Unavailable Unavailable MILNER, JAVIER Unavailable Unavailable MILNER, JAVIER Unavailable Unavailable MILNER, JAVIER Unavailable Unavailable MILNER, JAVIER Unavailable Unavailable MILNER, JAVIER Unavailable Unavailable MILNER, JAVIER Unavailable Unavailable MILNER, JAVIER Unavailable Unavailable MILNER, JAVIER Unavailable Unavailable MILNER, JAVIER Unavailable Unavailable RANJAN, MEG MD Unavailable Unavailable RANJAN, MEG MD Unavailable Unavailable RANJAN, MEG MD Unavailable Unavailable RANJAN, MEG MD Unavailable Unavailable RANJAN, MEG MD Unavailable Unavailable RANJAN, MEG MD Unavailable Unavailable RANJAN, MEG MD Unavailable Unavailable RANJAN, MEG MD Unavailable Unavailable RANJAN, MEG MD Unavailable Unavailable RANJAN, MEG MD Unavailable Unavailable RANJAN, MEG MD Unavailable Unavailable RANJAN, MEG MD Unavailable Unavailable RANJAN, MEG MD Unavailable Unavailable RANJAN, MEG MD Unavailable Unavailable RANJAN, MEG MD Unavailable Unavailable RANJAN, MEG MD Unavailable Unavailable RANJAN, MEG MD Unavailable Unavailable RANJAN, MEG MD Unavailable Unavailable RANJAN, MEG MD Unavailable Unavailable RANJAN, MEG MD Unavailable Unavailable RANJAN, MEG MD Unavailable Unavailable RANJAN, MEG MD Unavailable Unavailable RANJAN, MEG MD Unavailable Unavailable RANJAN, MEG MD Unavailable Unavailable RANJAN, MEG MD Unavailable Unavailable RANJAN, MEG MD Unavailable Unavailable RANJAN, MEG MD Unavailable Unavailable RANJAN, MEG MD Unavailable Unavailable RANJAN, MEG MD Unavailable Unavailable RANJAN, MEG MD Unavailable Unavailable RANJAN, MEG MD Unavailable Unavailable RANJAN, MEG MD Unavailable Unavailable RANJAN, MEG MD Unavailable Unavailable RANJAN, MEG MD Unavailable Unavailable RANJAN, MEG MD Unavailable Unavailable RANJAN, MEG MD Unavailable Unavailable RANJAN, MEG MD Unavailable Unavailable RANJAN, MEG MD Unavailable Unavailable RANJAN, MEG MD Unavailable Unavailable RANJAN, MEG MD Unavailable Unavailable Champ RAUSCH MD Unavailable Unavailable Champ RAUSCH MD Unavailable Unavailable Champ RAUSCH MD Unavailable Unavailable Champ RAUSCH MD Unavailable Unavailable Champ RAUSCH MD Unavailable Unavailable Champ RAUSCH MD Unavailable Unavailable Champ RAUSCH MD Unavailable Unavailable Champ RAUSCH MD Unavailable Unavailable Chmap RAUSCH MD Unavailable Unavailable Champ RAUSCH MD Unavailable Unavailable Champ RAUSCH MD Unavailable Unavailable Champ RAUSCH MD Unavailable Unavailable Champ RAUSCH MD Unavailable Unavailable Champ RAUSCH MD Unavailable Unavailable Champ RAUSCH MD Unavailable Unavailable Champ RAUSCH MD Unavailable Unavailable Champ RAUSCH MD Unavailable Unavailable Champ RAUSCH MD Unavailable Unavailable Champ RAUSCH MD Unavailable Unavailable Champ RAUSCH MD Unavailable Unavailable Champ RAUSCH MD Unavailable Unavailable Champ RAUSCH MD Unavailable Unavailable Champ RAUSCH MD Unavailable Unavailable Champ RAUSCH MD Unavailable Unavailable Champ RAUSCH MD Unavailable Unavailable Champ RAUSCH MD Unavailable Unavailable Champ RAUSCH MD Unavailable Unavailable Champ RAUSCH MD Unavailable Unavailable Champ RAUSCH MD Unavailable Unavailable Champ RAUSCH MD Unavailable Unavailable Champ RAUSCH MD Unavailable Unavailable Champ RAUSCH MD Unavailable Unavailable Champ RAUSCH MD Unavailable Unavailable Champ RAUSCH MD Unavailable Unavailable Champ RAUSCH MD Unavailable Unavailable JENNA H JOB CHAVEZ Unavailable Unavailable Champ RAUSCH MD Unavailable Unavailable JENNA H JOB CHAVEZ Unavailable Unavailable JENNA H JOB CHAVEZ Unavailable Unavailable JENNA H JOB CHAVEZ Unavailable Unavailable JENNA H JOB CHAVEZ Unavailable Unavailable JENNA H JOB CHAVEZ Unavailable Unavailable Champ RAUSCH MD Unavailable Unavailable JENNA H JOB CHAVEZ Unavailable Unavailable JENNA H JOB CHAVEZ Unavailable Unavailable Champ RAUSCH MD Unavailable Unavailable JENNA H JOB CHAVEZ Unavailable Unavailable EJNNA H JOB CHAVEZ Unavailable Unavailable Champ RAUSCH MD Unavailable Unavailable Champ RAUSCH MD Unavailable Unavailable Champ RAUSCH MD Unavailable Unavailable Champ RAUSCH MD Unavailable Unavailable Champ RAUSCH MD Unavailable Unavailable Champ RAUSCH MD Unavailable Unavailable Champ RAUSCH MD Unavailable Unavailable Champ RAUSCH MD Unavailable Unavailable Champ RAUSCH MD Unavailable Unavailable Champ RAUSCH MD Unavailable Unavailable Champ RAUSCH MD Unavailable Unavailable Champ RAUSCH MD Unavailable Unavailable Champ RAUSCH MD Unavailable Unavailable Champ RAUSCH MD Unavailable Unavailable Champ RAUSCH MD Unavailable Unavailable Champ RAUSCH MD Unavailable Unavailable Champ RAUSCH MD Unavailable Unavailable Champ RAUSCH MD Unavailable Unavailable Champ RAUSCH MD Unavailable Unavailable Champ RAUSCH MD Unavailable Unavailable Champ RAUSCH MD Unavailable Unavailable Champ RAUSCH MD Unavailable Unavailable Champ RAUSCH MD Unavailable Unavailable Champ RAUSCH MD Unavailable Unavailable Champ RAUSCH MD Unavailable Unavailable Champ RAUSCH MD Unavailable Unavailable Champ RAUSCH MD Unavailable Unavailable Champ RAUSCH MD Unavailable Unavailable Champ RAUSCH MD Unavailable Unavailable Champ RAUSCH MD Unavailable Unavailable Champ RAUSCH MD Unavailable Unavailable Champ RAUSCH MD Unavailable Unavailable Champ RAUSCH MD Unavailable Unavailable Champ RAUSCH MD Unavailable Unavailable Champ RAUSCH MD Unavailable Unavailable Champ RAUSCH MD Unavailable Unavailable Champ RAUSCH MD Unavailable Unavailable Champ RAUSCH MD Unavailable Unavailable Champ RAUSCH MD Unavailable Unavailable Champ RAUSCH MD Unavailable Unavailable Champ RAUSCH MD Unavailable Unavailable Champ RAUSCH MD Unavailable Unavailable Champ RAUSCH MD Unavailable Unavailable Champ RAUSCH MD Unavailable Unavailable Champ RAUSCH MD Unavailable Unavailable Champ RAUSCH MD Unavailable Unavailable Champ RAUSCH MD Unavailable Unavailable Champ RAUSCH MD Unavailable Unavailable Champ RAUSCH MD Unavailable Unavailable Champ RAUSCH MD Unavailable Unavailable Champ RAUSCH MD Unavailable Unavailable Champ RAUSCH MD Unavailable Unavailable Champ RAUSCH MD Unavailable Unavailable Champ RAUSCH MD Unavailable Unavailable Champ RAUSCH MD Unavailable Unavailable Champ RAUSCH MD Unavailable Unavailable Champ RAUSCH MD Unavailable Unavailable Champ RAUSCH MD Unavailable Unavailable Champ RAUSCH MD Unavailable Unavailable Champ RAUSCH MD Unavailable Unavailable Champ RAUSCH MD Unavailable Unavailable Champ RAUSCH MD Unavailable Unavailable Champ RAUSCH MD Unavailable Unavailable Champ RAUSCH MD Unavailable Unavailable Champ RAUSCH MD Unavailable Unavailable Champ RAUSCH MD Unavailable Unavailable Champ RAUSCH MD Unavailable Unavailable Champ RAUSCH MD Unavailable Unavailable Champ RAUSCH MD Unavailable Unavailable Champ RAUSCH MD Unavailable Unavailable Champ RAUSCH MD Unavailable Unavailable Champ RAUSCH MD Unavailable Unavailable Champ RAUSCH MD Unavailable Unavailable Champ RAUSCH MD Unavailable Unavailable Champ RAUSCH MD Unavailable Unavailable Champ RAUSCH MD Unavailable Unavailable Champ RAUSCH MD Unavailable Unavailable Champ RAUSCH MD Unavailable Unavailable Champ RAUSCH MD Unavailable Unavailable Champ RAUSCH MD Unavailable Unavailable Champ RAUSCH MD Unavailable Unavailable Champ RAUSCH MD Unavailable Unavailable Champ RAUSCH MD Unavailable Unavailable Champ RAUSCH MD Unavailable Unavailable Champ RAUSCH MD Unavailable Unavailable Champ RAUSCH MD Unavailable Unavailable Champ RAUSCH MD Unavailable Unavailable Champ RAUSCH MD Unavailable Unavailable Champ RAUSCH MD Unavailable Unavailable Champ RAUSCH MD Unavailable Unavailable Champ RAUSCH MD Unavailable Unavailable Champ RAUSCH MD Unavailable Unavailable hCamp RAUSCH MD Unavailable Unavailable Champ RAUSCH MD Unavailable Unavailable Champ RAUSCH MD Unavailable Unavailable Champ RAUSCH MD Unavailable Unavailable Champ RAUSCH MD Unavailable Unavailable Champ RAUSCH MD Unavailable Unavailable Champ RAUSCH MD Unavailable Unavailable Champ RAUSCH MD Unavailable Unavailable Champ RAUSCH MD Unavailable Unavailable Champ RAUSCH MD Unavailable Unavailable Champ RAUSCH MD Unavailable Unavailable Champ RAUSCH MD Unavailable Unavailable Rydberg, Susan PA Unavailable Unavailable Rydberg, Susan PA Unavailable Unavailable Rydberg, Susan PA Unavailable Unavailable Rydberg, Susan PA Unavailable Unavailable Rydberg, Susan PA Unavailable Unavailable Rydberg, Susan PA Unavailable Unavailable Rydberg, Susan PA Unavailable Unavailable Rydberg, Susan PA Unavailable Unavailable Rydberg, Susan PA Unavailable Unavailable Rydberg, Susan PA Unavailable Unavailable Rydberg, Susan PA Unavailable Unavailable Rydberg, Susan PA Unavailable Unavailable Rydberg, Susan PA Unavailable Unavailable Rydberg, Susan PA Unavailable Unavailable Rydberg, Susan PA Unavailable Unavailable Rydberg, Susan PA Unavailable Unavailable Rydberg, Susan PA Unavailable Unavailable Rydberg, Ssuan PA Unavailable Unavailable Rydberg, Susan PA Unavailable Unavailable Rydberg, Susan PA Unavailable Unavailable Rydberg, Susan PA Unavailable Unavailable Rydberg, Susan PA Unavailable Unavailable Re-disclosure Warning The records that you are about to access may contain information from federally-assisted alcohol or drug abuse programs. If such information is present, then the following federally mandated warning applies: This information has been disclosed to you from records protected by federal confidentiality rules (42 CFR part 2). The federal rules prohibit you from making any further disclosure of this information unless further disclosure is expressly permitted by the written consent of the person to whom it pertains or as otherwise permitted by 42 CFR part 2. A general authorization for the release of medical or other information is NOT sufficient for this purpose. The Federal rules restrict any use of the information to criminally investigate or prosecute any alcohol or drug abuse patient.The records that you are about to access may contain highly sensitive health information, the redisclosure of which is protected by Article 27-F of the [facility] Public Health law. If you continue you may have access to information: Regarding HIV / AIDS; Provided by facilities licensed or operated by the [facility] Office of Mental Health; or Provided by the [facility] Office for People With Developmental Disabilities. If such information is present, then the following [facility] mandated warning applies: This information has been disclosed to you from confidential records which are protected by state law. State law prohibits you from making any further disclosure of this information without the specific written consent of the person to whom it pertains, or as otherwise permitted by law. Any unauthorized further disclosure in violation of state law may result in a fine or mcc sentence or both. A general authorization for the release of medical or other information is NOT sufficient authorization for further disc losure. Allergies and Adverse Reactions Type Description Substance Reaction Status Data Source(s ) Drug allergy Azithromycin Azithromycin stomach cramps Active eCW 1 ([facility], 1928[facility]) bees bees bees Anaphylaxis Active eCW1 ([facility]) shellfish shellfish shellfish Anaphylaxis Active eCW1 ([facility]) bees bees bees Anaphylaxis Active eCW1 ([facility]) shellfish shellfish shellfish Anaphylaxis Active eCW1 ([facility]) Family History Family Member Name Family Member Gender Family Member Status Date o f Status Description Data Source(s) Unknown Unknown Problem MEDENT ([facility], ) Encounters Encounter Providers Location Date Indications Data Source(s ) Outpatient Attender: JOB RAUSCH MD [place] [facility] 02:40:00 PM EST MEDENT ([facility]) Outpatient Attender: MEG WOODRUFF MD Main office - [facility] 12/20/2020 07:30:00 AM EST [facility] Out[facility] Attender: Susan STILES 12/05/2020 09:00:00 AM [facility] (WC 20ESGYN) WCenter 20 Min Est Animal Husbandry Technician [address] [place] [address] 12/03/2020 12:00:00 AM EST eCW1 ([facility]) (WC 20ESGYN) WCenter 20 Min Est Animal Husbandry Technician [address] [place] [address] 11/11/2020 12:00:00 AM EST eCW1 ([facility]) (WC 20ESGYN) WCenter 20 Min Est Animal Husbandry Technician [address] [place] [address] 10/28/2020 12:00:00 AM EST eCW1 ([facility]) Unknown [address] [facility] [address] 10/19/2020 12:00:00 AM EST eCW1 (Pending sale to [facility]) Unknown [address] [facility] [address] 10/08/2020 12:00:00 AM EST eCW1 (Pending sale to [facility]) (WC 20ESGYN) WCenter 20 Min Est Animal Husbandry Technician [address] [place] [address] 09/27/2020 12:00:00 AM EDT eCW1 ([facility]) Unknown [address] [facility] [address] 09/16/2020 12:00:00 AM EDT eCW1 ([facility]) Outpatient Attender: MEG WOODRUFF MD Main office - [facility] n 09/10/2020 08:15:00 AM EDT MEDENT ([facility] Rubin) [facility] [address] [place] [address] 09/05/2020 12:00:00 AM EDT eCW1 ([facility]) Outpatient Attender: JOB RAUSCH MD [place] [facility] 04:00:00 PM EDT MEDENT ([facility] Outpatient Attender: MEG WOODRUFF MD Main office - [facility] n 06/21/2020 08:15:00 AM EDT MEDENT ([facility]) Outpatient Attender: JOB RAUSCH MD [place] [facility] 03:40:00 PM EDT MEDENT ([facility] Unknown [address] [facility] [address] 06/10/2020 12:00:00 AM EDT eCW1 ([facility] [place] [address] [facility] [address] 06/07/2020 12:00:00 AM EDT eCW1 ([facility] Outpatient Attender: MEG WOODRUFF MD Main office - [facility] n 04/18/2020 02:45:00 PM EDT MEDENT ([facility] Rubin) [facility] [address] [place] [address] 03/20/2020 12:00:00 AM EDT eCW1 ([facility]) [facility] [address] [place] [address] 03/20/2020 12:00:00 AM EDT eCW1 ([facility]) [place] [address] [facility] [address] 02/26/2020 12:00:00 AM EDT eCW1 ([facility] [address] [place] [address] 02/16/2020 12:00:00 AM EDT eCW1 ([facility]) [facility] [address] [place] [address] 02/12/2020 12:00:00 AM EDT eCW1 ([facility]) Outpatient Referrer: JOB RAUSCH MD 02/01/2020 11:44:00 AM EST [facility] Outpatient Attender: JOB RAUSCH MD [place] [facility] 02:40:00 PM EST MEDENT ([facility] Outpatient Referrer: JOB RAUSCH MD 12/21/2019 01:10:00 PM EST [facility] Outpatient Referrer: JOB RAUSCH MD 12/21/2019 01:10:00 PM EST [facility] Outpatient Referrer: JOB RAUSCH MD 12/21/2019 10:23:00 AM EST [facility] Outpatient Referrer: JOB RAUSCH MD 12/20/2019 03:32:00 PM EST [facility] Outpatient Referrer: JOB RAUSCH MD 12/20/2019 09:44:00 AM EST [facility] Outpatient Referrer: JAVIER MILNER 12/20/2019 09:43:00 A M EST [facility] Outpatient Referrer: JAVIER MILNER 12/20/2019 09:43:00 A M EST [facility] Outpatient Referrer: JAVIER MILNER 12/20/2019 09:42:00 A M EST [facility] Outpatient Referrer: JAVIER MILNER 12/20/2019 09:42:00 A M EST [facility] Medications Medication Brand Name Start Date Product Form Dose Route Admi nistrative Instructions Pharmacy Instructions Status Indications Reaction Description Data Source(s) Estradiol 1 MG Oral Tablet [Estrace] Estrace 1 MG Estrace 1 MG 12/03/2020 12:00:00 AM EST 1.0 {tablet} active Es trace 1 MG eCW1 ([facility], 1928–1983) Ibuprofen 800 MG Oral Tablet Ibuprofen 800 MG 10/19/2020 12:00:[address] suspended Ibuprofen 800 MG eCW1 ([facility]) Ibuprofen 800 MG Oral Tablet Ibuprofen 800 MG 10/19/2020 12:00:[address] active Ibuprofen 800 MG eCW1 ([facility]) Ibuprofen 800 MG Oral Tablet Ibuprofen 800 MG 10/19/2020 12:00:[address] suspended Ibuprofen 800 MG eCW1 ([facility]) Ibuprofen 800 MG Oral Tablet Ibuprofen 800 MG 10/19/2020 12:00:[address] active Ibuprofen 800 MG eCW1 ([facility]) Fluoxetine 40 MG Oral Capsule [Prozac] Prozac 07/15/2020 12:00:00 AM EDT ORAL active MEDENT ([facility] Orilissa Orilissa active MEDEN T ([facility] Cephalexin 500 MG Oral Capsule [Keflex] Keflex 06/12/2020 12:00:0 0 AM EDT ORAL completed MEDENT ([facility] zonisamide 25 MG Oral Capsule Zonisamide 06/11/2020 12:00:00 AM EDT ORAL active MEDENT ([facility], ) 1 ML Leuprolide Acetate 3.75 MG/ML Prefi lled Syringe [Lupron] Lupron Depot (1- Month) 3.75 MG Lupron Depot (1-Month) 3.75 MG 02/14/2020 12:00:00 AM EDT active as directed eCW1 ([facility]) 1 ML Leuprolide Acetate 3.75 MG/ML Prefi lled Syringe [Lupron] Lupron Depot (1- Month) 3.75 MG Lupron Depot (1-Month) 3.75 MG 02/14/2020 12:00:00 AM EDT suspended Lupron Depot (1-Month) 3. 75 MG eCW1 ([facility], 1928–1983) 1 ML Leuprolide Acetate 3.75 MG/ML Prefi lled Syringe [Lupron] Lupron Depot (1- Month) 3.75 MG Lupron Depot (1-Month) 3.75 MG 02/14/2020 12:00:00 AM EDT active Lupron Depot (1-Month) 3. 75 MG eCW1 ([facility], 1928–1983) 1 ML Leuprolide Acetate 3.75 MG/ML Prefi lled Syringe [Lupron] Lupron Depot (1- Month) 3.75 MG Lupron Depot (1-Month) 3.75 MG 02/14/2020 12:00:00 AM EDT suspended Lupron Depot (1-Month) 3. 75 MG eCW1 ([facility], 1928–1983) 1 ML Leuprolide Acetate 3.75 MG/ML Prefi lled Syringe [Lupron] Lupron Depot (1- Month) 3.75 MG Lupron Depot (1-Month) 3.75 MG 02/14/2020 12:00:00 AM EDT active Lupron Depot (1-Month) 3. 75 MG eCW1 ([facility], 1928–1983) 1 ML Leuprolide Acetate 3.75 MG/ML Prefi lled Syringe [Lupron] Lupron Depot (1- Month) 3.75 MG Lupron Depot (1-Month) 3.75 MG 02/14/2020 12:00:00 AM EDT active Lupron Depot (1-Month) 3. 75 MG eCW1 ([facility], 1928–1983) 1 ML Leuprolide Acetate 3.75 MG/ML Prefi lled Syringe [Lupron] Lupron Depot (1- Month) 3.75 MG Lupron Depot (1-Month) 3.75 MG 02/14/2020 12:00:00 AM EDT active Lupron Depot (1-Month) 3. 75 MG eCW1 ([facility], 1928–1983) 1 ML Leuprolide Acetate 3.75 MG/ML Prefi lled Syringe [Lupron] Lupron Depot (1- Month) 3.75 MG Lupron Depot (1-Month) 3.75 MG 02/14/2020 12:00:00 AM EDT active Lupron Depot (1-Month) 3. 75 MG eCW1 ([facility], 1928–1983) 1 ML Leuprolide Acetate 3.75 MG/ML Prefi lled Syringe [Lupron] Lupron Depot (1- Month) 3.75 MG Lupron Depot (1-Month) 3.75 MG 02/14/2020 12:00:00 AM EDT active Lupron Depot (1-Month) 3. 75 MG eCW1 ([facility], 1928–1983) 1 ML Leuprolide Acetate 3.75 MG/ML Prefi lled Syringe [Lupron] Lupron Depot (1- Month) 3.75 MG Lupron Depot (1-Month) 3.75 MG 02/14/2020 12:00:00 AM EDT active Lupron Depot (1-Month) 3. 75 MG eCW1 ([facility], 1928–1983) 1 ML Leuprolide Acetate 3.75 MG/ML Prefi lled Syringe [Lupron] Lupron Depot (1- Month) 3.75 MG Lupron Depot (1-Month) 3.75 MG 02/14/2020 12:00:00 AM EDT active as directed eCW1 ([facility]) Orilissa 150 MG Orilissa 150 MG 02/12/2020 12:00:00 AM EDT 1.0 { tablet} active Orilissa 150 MG eCW1 ([facility], 1928–1983) Orilissa 150 MG Orilissa 150 MG 02/12/2020 12:00:00 AM EDT 1.0 { tablet} active Orilissa 150 MG eCW1 ([facility], 1928–1983) Orilissa 150 MG Orilissa 150 MG 02/12/2020 12:00:00 AM EDT 1.0 { tablet} active Orilissa 150 MG eCW1 ([facility], 1928[facility]) Orilissa 150 MG Orilissa 150 MG 02/12/2020 12:00:00 AM EDT 1.0 { tablet} active Orilissa 150 MG eCW1 ([facility], 1928[facility]1983) Orilissa 150 MG Orilissa 150 MG 02/12/2020 12:00:00 AM EDT 1.0 { tablet} suspended Orilissa 150 MG eCW1 ([facility], 1928[facility]1983) Orilissa 150 MG Orilissa 150 MG 02/12/2020 12:00:00 AM EDT 1.0 { tablet} active Orilissa 150 MG eCW1 ([facility], 1928[facility]1983) Orilissa 150 MG Orilissa 150 MG 02/12/2020 12:00:00 AM EDT 1.0 { tablet} suspended Orilissa 150 MG eCW1 ([facility], 1928–1983) Orilissa 150 MG Orilissa 150 MG 02/12/2020 12:00:00 AM EDT active 1 tablet eCW1 ([facility], [facility]1983) Orilissa 150 MG Orilissa 150 MG 02/12/2020 12:00:00 AM EDT 1.0 { tablet} active Orilissa 150 MG eCW1 ([facility], 1928–1983) Orilissa 150 MG Orilissa 150 MG 02/12/2020 12:00:00 AM EDT active 1 tablet eCW1 ([facility], 1928–1983) Orilissa 150 MG Orilissa 150 MG 02/12/2020 12:00:00 AM EDT 1.0 { tablet} suspended Orilissa 150 MG eCW1 ([facility], 1928–1983) Alprazolam 0.5 MG Oral Tablet [Xanax] Xanax 01/18/2020 12:00:00 AM EST active MEDENT ([facility] ) zonisamide 50 MG Oral Capsule Zonisamide 01/02/2020 12:00:00 AM EST ORAL completed MEDENT ([facility], ) zonisamide 25 MG Oral Capsule Zonisamide 01/02/2020 12:00:00 AM EST ORAL completed MEDENT ([facility] ) Fluoxetine 20 MG Oral Capsule [Prozac] Prozac 12/13/2019 12:00:00 AM EST ORAL active MEDENT ([facility] Insurance Providers Payer name Policy type / Coverage type Policy ID Covered green party ID Covered green party's relationship to [place] Policy [place] [employer] Information [employer] [place] PPO 302/307 [id number] SP [id number] BCBS [facility] [id number] SP [id number] SELF PAY UNAVAILABLE S UNAVAILA BLE BCBS [facility] [id number] SP [id number] EXCELLUS BCBS B [id number] S [id number] BCBS FEDERAL EMPLOYEE PROGRAM [id number] SP [id number] MVP [facility] [id number] SP [id number] EXCELLUS BCBS B [id number] S [id number] EXCELLUS BCBS B [id number] S [id number] EXCELLUS H [id number] Self [id number] Medicaid [facility] Part B [id number] Self [id number] [facility] Medicaid Health Maintenance Organization (HMO) [id number] Self [id number] [facility] HEALTH CARE [id number] SP [id number] MEDICAID [id number] SP [id number] [facility] [facility] [facility] [id number] SP [id number] ANSI-Commercial [id number] ANSI-Commercial [id number] ANSI-Commercial [id number] ANSI-Commercial [id number] ANSI-Commercial [id number] ANSI-Commercial [id number] MEDICAID M [id number] S [id number] [facility] O [id number] S [id number] ANSI-Commercial [id number] ANSI-Commercial [id number] [place]/307 [id number] SP [id number] [employer] [place] 302/307 [id number] SP [id number] [employer] B [id number] S [id number] [employer] [place] P[place] 302/307 [id number] SP [id number] [employer] [place] 302/307 [id number] SP [id number] [employer] Health Maintenance Organization (HMO) [id number] Self [id number] [employer] Maintenance [employer] (HMO) [id number] Self [id number] BLUE CROSS [id number] S [id number] SELF PAY ON CONTRACT 35% CC DISC TILL 05/01/17 S 35% CC DISC TILL 05/01/17 BLUE CROSS [id number] S [id number] [employer] Health Maintenance Organization (HMO) [id number] Self [id number] [employer] [place] PPO 302/307 [id number] SP [id number] [employer] Health Maintenance Organization (HMO) Self [employer] B [id number] S [id number] Blue Cross Blue Shield P [id number] SELF [id number] BC[place] 303/803 [id number] SP [id number] BLUE CROSS O [id number] S [id number] [employer] BCBS S [id number] S [id number] STATE INSURANCE FUND P [id number] S [id number] BC/BS OF [place] S [id number] S [id number] [id number] P UNAVAILABLE UNAVAILA BLE Problems, Conditions, and Diagnoses Code Display Name Description Problem Type Effective Dates Data Source(s) N80.9 Endometriosis Endometriosis Problem 05/22/2020 12:00:00 AM EDT eCW1 (Formerly [facility], 1928–1983) 02264623 Headache Headache Problem 01/02/2020 12:00:00 AM DEBORA MAGANA ([facility], ) Z23 Encounter for immunization ENCOUNTER FOR IMMUNIZATION Diagnosis 12/05/2020 09:00:00 AM [facility] Surgeries/Procedures Procedure Description Date Indications Data Source(s) Injection For Nerve Block, Greater Occipital Nerve 01/07/2021 12:00:00 AM EST [facility] ([facility], ) INJECTION ANES OTHER PERIPHERAL NERVE/BRANCH 1 12:00:00 AM EST [facility] ([facility], ) Injection For Nerve Block, Greater Occipital Nerve 12/03/2020 12:00:00 AM EST [facility] ([facility], ) INJECTION ANES OTHER PERIPHERAL NERVE/BRANCH 1 12:00:00 AM EST [facility] ([facility], ) Injection For Nerve Block, Greater Occipital Nerve 10/30/2020 12:00:00 AM EST [facility] ([facility], ) INJECTION ANES OTHER PERIPHERAL NERVE/BRANCH 0 12:00:00 AM EST [facility] ([facility], ) Injection For Nerve Block, Greater Occipital Nerve 09/30/2020 12:00:00 AM EST [facility] ([facility], ) INJECTION ANES OTHER PERIPHERAL NERVE/BRANCH 0 12:00:00 AM EST [facility] ([facility], ) Injection For Nerve Block, Greater Occipital Nerve 08/27/2020 12:00:00 AM EDT [facility] ([facility], ) INJECTION ANES OTHER PERIPHERAL NERVE/BRANCH 0 12:00:00 AM EDT [facility] ([facility], ) Injection For Nerve Block, Greater Occipital Nerve 07/23/2020 12:00:00 AM EDT [facility] ([facility], ) INJECTION ANES OTHER PERIPHERAL NERVE/BRANCH 0 12:00:00 AM EDT [facility] ([facility], ) Injection For Nerve Block, Greater Occipital Nerve 06/19/2020 12:00:00 AM EDT [facility] ([facility], ) INJECTION ANES OTHER PERIPHERAL NERVE/BRANCH 0 12:00:00 AM EDT [facility] ([facility], ) Injection For Nerve Block, Greater Occipital Nerve 2020 12:00:00 AM EDT [facility] ([facility], ) INJECTION ANES OTHER PERIPHERAL NERVE/BRANCH 0 12:00:00 AM EDT [facility] ([facility] ) Magnetic Resonance Angiogtaphy Head W/O Contrast Material(S) 04/20/2020 12:00:00 AM EDT [facility] ([facility]) Magnetic Resonance Angiogtaphy Head W/O Contrast Material(S) 04/20/2020 12:00:00 AM EDT [facility] ([facility]) Magnetic Resonance Angiography Neck W/O Contrast Materials 04/20/2020 12:00:00 AM EDT [facility] ([facility]) Magnetic Resonance Angiography Neck W/O Contrast Materials 04/20/2020 12:00:00 AM EDT [facility] ([facility]) Injection For Nerve Block, Greater Occipital Nerve 04/04/2020 12:00:00 AM EDT [facility] ([facility], ) INJECTION ANES OTHER PERIPHERAL NERVE/BRANCH 0 12:00:00 AM EDT [facility] ([facility], ) PHYSICIAN TELEPHONE EVALUATION 11-20 MIN 03/20/2020 12 :00:00 AM EDT eCW1 (Formerly [facility], 1928–1983) Injection For Nerve Block, Greater Occipital Nerve 03/05/2020 12:00:00 AM EDT [facility] ([facility], ) INJECTION ANES OTHER PERIPHERAL NERVE/BRANCH 0 12:00:00 AM EDT [facility] ([facility] ) MRI BRAIN BRAIN STEM W/O CONTRAST MATERIAL 02/24/2020 12:00:00 AM EDT [facility] ([facility] ) MRI BRAIN BRAIN STEM W/O CONTRAST MATERIAL 02/24/2020 12:00:00 AM EDT [facility] ([facility] ) Magnetic Resonance Angiogtaphy Head W/O Contrast Material(S) 01/20/2020 12:00:00 AM EST [facility] ([facility]) Magnetic Resonance Angiogtaphy Head W/O Contrast Material(S) 01/20/2020 12:00:00 AM EST [facility] ([facility]) TSTG ANS FUNCJ CARDIOVAGAL INNERVAJ PARASYMP 0 12:00:00 AM EST [facility] ([facility], ) TSTG ANS FUNCJ CARDIOVAGAL INNERVAJ PARASYMP 0 12:00:00 AM EST [facility] ([facility]) TESTING AUTONOMIC NERVOUS SYSTEM FUNCTION 01/03/2020 1 2:00:00 AM EST [facility] ([facility]) TESTING AUTONOMIC NERVOUS SYSTEM FUNCTION 01/03/2020 1 2:00:00 AM EST [facility] ([facility], ) Results ID Date Data Source [id number] 01/08/2021 07:51:00 AM EST [facility] Received: 01/07/2021 at 13:02:00 QPT : [facility], [address], [address] [place] [address], [phone], Rasheed Jensen MD Received: 01/07/2021 at 13:02:00 QPT : [facility], [address], [address] [place] [address], [phone] MD Received: 01/07/2021 at 13:02:00 QPT : [facility], [address], [address] [place] [address], [phone], Rasheed Jensen MD Name Value Range Interpretation Code Description Data Rhonda rce(s) Supporting Document(s) ID Date Data Source [id number] 01/08/2021 06:57:00 AM EST [facility] Received: 01/07/2021 at 13:02:00 QPT : [facility], [address], [address] [place] [address], [phone] MD Received: 01/07/2021 at 13:02:00 QPT : [facility], [address], [address] [place] [address], [phone] MD Received: 01/07/2021 at 13:02:00 QPT : [facility], [address], [address] [place] [address], [phone] MD Name Value Range Interpretation Code Description Data Rhonda rce(s) Supporting Document(s) Triiodothyronine resin uptake (T3RU) in Serum or Plasma 20 % 22-35 Below low normal [facility] Thyroxine (T4) [Mass/volume] in Serum or Plasma 11.1 mcg/dL 5.1-11.9 Normal (applies to non-numeric results) [facility] Thyroxine (T4) free index in Serum or Plasma by calculation 2.2 1.4-3.8 Normal (applies to non-numeric results) [facility] ID Date Data Source [id number] 01/08/2021 06:57:00 AM EST [facility] Received: 01/07/2021 at 13:02:00 QPT : [facility], [address], [address] [place] [address], [phone] MD Received: 01/07/2021 at 13:02:00 QPT : [facility], [address], [address] [place] [address], [phone] MD Received: 01/07/2021 at 13:02:00 QPT : [facility], [address], [address] [place] [address], [phone] MD Name Value Range Interpretation Code Description Data Rhonda rce(s) Supporting Document(s) Thyrotropin [Units/volume] in Serum or Plasma [facility] ID Date Data Source [id number] 01/08/2021 07:51:00 AM EST [facility] Received: 01/07/2021 at 13:02:00 QPT : [facility], [address], [address] [place] [address], [phone] MD Received: 01/07/2021 at 13:02:00 QPT : [facility], [address], [address] [place] [address], [phone] MD Received: 01/07/2021 at 13:02:00 QPT : [facility], [address], [address] [place] [address], [phone] MD Name Value Range Interpretation Code Description Data Rhonda rce(s) Supporting Document(s) Triiodothyronine resin uptake (T3RU) in Serum or Plasma 20 % 22-35 Below low normal [facility] Thyroxine (T4) [Mass/volume] in Serum or Plasma 11.1 mcg/dL 5.1-11.9 Normal (applies to non-numeric results) [facility] Thyroxine (T4) free index in Serum or Plasma by calculation 2.2 1.4-3.8 Normal (applies to non-numeric results) [facility] ID Date Data Source [id number] 10/18/2020 06:30:00 AM EST [facility] ([facility] Name Value Range Interpretation Code Description Data Rhonda rce(s) Supporting Document(s) Blood Type Laboratory test result Normal (applies to non-n umeric results) [facility] ([facility] AB Screen (Indirect Gopi)Vis Laboratory test result Normal (applies to non- numeric results) [facility] ([facility] ) ID Date Data Source [id number] 10/18/2020 06:30:00 AM EST [facility] ([facility] Name Value Range Interpretation Code Description Data Rhonda rce(s) Supporting Document(s) White Blood Count 8.5 10 4.0-10.0 Normal (applies to non-numeri c results) [facility] ([facility] Red Blood Count 4.57 10 4.00-5.40 Normal (applies to non-numeric results) [facility] ([facility] Hemoglobin 14.1 g/dL 12.0-15.5 Normal (applies to non-numeric resul ts) [facility] ([facility] Hematocrit 43.5 % 36.0-47.0 Normal (applies to non-numeric resul ts) [facility] ([facility] Mean Corpuscular Hemoglobin 30.9 pg 27.0-33.0 Norm al (applies to non-numeric results) [facility] ([facility] ) Mean Corpuscular HGB Conc 32.4 g/dL 32.0-36.5 Normal (applies to non-numeric results) [facility] ([facility] ) Mean Corpuscular Volume 95.2 fl 80.0-96.0 Normal ( applies to non-numeric results) [facility] ([facility] ) Nucleated Red Blood Cell % 0.0 % 0-0 Normal (applies to n on-numeric results) [facility] ([facility] Red Cell Distribution Width 13.3 % 11.5-14.5 Norm al (applies to non-numeric results) [facility] ([facility] ) Platelet Count, Automated 375 10 150-450 Normal (applies to non-numeric results) [facility] ([facility] ) ID Date Data Source [id number] 10/13/2020 09:00:00 AM EST [facility] Name Value Range Interpretation Code Description Data Rhonda rce(s) Supporting Document(s) SARS coronavirus 2 RNA [facility] This lab was ordered by [facility] and reported by [facility]. ID Date Data Source [id number] 01/27/2020 09:47:00 AM EST [facility] ([facility] Name Value Range Interpretation Code Description Data Rhonda rce(s) Supporting Document(s) Reflex Urine Culture Laboratory test result Norm al (applies to non-numeric results) [facility] ([facility] ) FULL REPORT IN LAB NOTES (eCW and [facility] ). SPECIMEN APPEARS CONTAMINATED ID Date Data Source [id number] 01/27/2020 09:47:00 AM EST [facility] ([facility] Name Value Range Interpretation Code Description Data Rhonda rce(s) Supporting Document(s) Color, Urine RFX Laboratory test result Normal ( applies to non-numeric results) [facility] ([facility] ) Appearance, Urine RFX Laboratory test result Above high no rmal [facility] ([facility] PH,Urine RFX 7.0 units 5.0-9.0 Normal (applies to non-numeric res ults) [facility] ([facility] Specific [place] Ur Auto RFX 1.017 1.002-1.035 Nor mal (applies to non-numeric results) [facility] ([facility] ) Protein, Urine Auto RFX Laboratory test result N ormal (applies to non-numeric results) [facility] ([facility] ) Ketone, Urine Auto RFX Laboratory test result No rmal (applies to non-numeric results) [facility] ([facility] ) Urobilinogen, Urine Auto RFX 0.2 mg/dL 0.0-2.0 Nor mal (applies to non-numeric results) [facility] ([facility] ) Glucose, Urine (Ua) Auto RFX Laboratory test result Normal (applies to non- numeric results) [facility] ([facility] ) Leukocyte Esterase Ur Auto RFX Laboratory test result Abov e high normal [facility] ([facility] Nitrite, Urine Auto RFX Laboratory test result N ormal (applies to non-numeric results) [facility] ([facility] ) Bilirubin, Urine Auto RFX Laboratory test result Normal (applies to non- numeric results) [facility] ([facility] ) WBC, Urine Auto RFX 56 /HPF 0-3 Above high normal [facility] ([facility] Bacteria, Urine Auto RFX Laboratory test result Above high normal [facility] ([facility] Blood, Urine Blood RFX Laboratory test result No rmal (applies to non-numeric results) [facility] ([facility] ) RBC, Urine Auto RFX 4 /HPF 0-3 Above high normal [facility] ([facility] Amorphous Sediment RFX Laboratory test result Above high n ormal [facility] ([facility] Squam Epithelial Cell Ur Aurfx 12 /HPF 0-6 N ormal (applies to non-numeric results) [facility] ([facility] ) Hyaline Cast, Urine Auto RFX 0 /LPF 0-1 Normal (appl ies to non-numeric results) [facility] ([facility] ID Date Data Source [id number] 01/27/2020 08:52:00 AM EST [facility] ([facility] Name Value Range Interpretation Code Description Data Rhonda rce(s) Supporting Document(s) Laboratory test finding (navigational concept) 40.0 % 3 8.0-51.0 Normal (applies to non-numeric results) [facility] ([facility] Laboratory test finding (navigational concept) 93 mg/dL 7 0-105 Normal (applies to non-numeric results) [facility] ([facility] Laboratory test finding (navigational concept) 4.8 mg/dL 4 .5-5.3 Normal (applies to non-numeric results) [facility] ([facility] Laboratory test finding (navigational concept) 3.7 meq/L 3 .5-5.1 Normal (applies to non-numeric results) [facility] ([facility] Laboratory test finding (navigational concept) 139 meq/L 1 36-145 Normal (applies to non-numeric results) [facility] ([facility] Laboratory test finding (navigational concept) 24.0 MM/L 2 3.0-27.0 Normal (applies to non-numeric results) [facility] ([facility] Laboratory test finding (navigational concept) 12 mg/dL 8 -26 Normal (applies to non-numeric results) [facility] ([facility]) Laboratory test finding (navigational concept) 106 meq/L 9 8-109 Normal (applies to non-numeric results) [facility] Laboratory test finding (navigational concept) 0.8 mg/dL 0 .6-1.3 Normal (applies to non-numeric results) [facility] ([facility] ID Date Data Source [id number] 01/27/2020 08:45:00 AM EST [facility] ([facility] Name Value Range Interpretation Code Description Data Rhonda rce(s) Supporting Document(s) Laboratory test finding (navigational concept) Laboratory test r esult Normal (applies to non-numeric results) [facility] <content>QUANTITATIVE RESULT QU ALITATIVE INTERPRETATION</content>
<content> </content>
<content><5.0 IU/L NEGATIVE</content>
<content>5.0 - 25.0 IU/L INDETERMINATE</content>
<content>>25.0 IU/L POSITIVE</content>
<content></content> ID Date Data Source [id number] 01/27/2020 08:33:00 AM EST [facility] ([facility] Name Value Range Interpretation Code Description Data Rhonda rce(s) Supporting Document(s) Lipoprotein lipase [Enzymatic activity/volume] in Serum or Plasm a 83 U/L 73-393 Normal (applies to non-numeric results) [facility] ([facility] ID Date Data Source [id number] 01/27/2020 08:33:00 AM EST [facility] ([facility] Name Value Range Interpretation Code Description Data Rhonda rce(s) Supporting Document(s) Ast/Sgot 18 U/L 7-37 Normal (applies to non-numeric resul ts) [facility] ([facility] Alkaline Phosphatase 78 U/L 45-117 Normal (applies to non-num valentino results) [facility] ([facility] Alt/SGPT 32 U/L 12-78 Normal (applies to non-numeric resul ts) [facility] ([facility] Bilirubin,Total 0.2 mg/dL 0.2-1.0 Normal (applies to non-numeric results) [facility] ([facility] Bilirubin,Direct Laboratory test result 0.0-0.2 Normal ( applies to non-numeric results) [facility] ([facility] ) Total Protein 7.7 GM/DL 6.4-8.2 Normal (applies to non-numeric re sults) [facility] ([facility] Albumin 3.7 GM/DL 3.2-5.2 Normal (applies to non-numeric resul ts) [facility] ([facility] Albumin/Globulin Ratio 0.93 1.00-1.93 Below low normal [facility] ([facility] ID Date Data Source [id number] 01/27/2020 08:33:00 AM EST [facility] ([facility] Name Value Range Interpretation Code Description Data Rhonda rce(s) Supporting Document(s) White Blood Count 9.7 10 4.0-10.0 Normal (applies to non-numeri c results) [facility] ([facility] Red Blood Count 4.29 10 4.00-5.40 Normal (applies to non-numeric results) [facility] ([facility] Hematocrit 39.6 % 36.0-47.0 Normal (applies to non-numeric resul ts) [facility] ([facility] Mean Corpuscular Volume 92.3 fl 80.0-96.0 Normal ( applies to non-numeric results) [facility] ([facility] ) Hemoglobin 13.6 g/dL 12.0-15.5 Normal (applies to non-numeric resul ts) [facility] ([facility] Mean Corpuscular Hemoglobin 31.7 pg 27.0-33.0 Norm al (applies to non-numeric results) [facility] ([facility] ) Mean Corpuscular HGB Conc 34.3 g/dL 32.0-36.5 Normal (applies to non-numeric results) [facility] ([facility] ) Red Cell Distribution Width 12.8 % 11.5-14.5 Norm al (applies to non-numeric results) [facility] ([facility] ) Platelet Count, Automated 327 10 150-450 Normal (applies to non-numeric results) [facility] ([facility] ) Neutrophils % 71.3 % 36.0-66.0 Above high normal MEDE NT ([facility] Lymph % 19.3 % 24.0-44.0 Below low normal [facility] ( [facility] [place] % 5.0 % 0.0-5.0 Normal (applies to non-numeric resul ts) [facility] ([facility] Immature Granulocyte % 0.3 % 0-3.0 Normal (applies to non-n umeric results) [facility] ([facility] Baso % 0.7 % 0.0-1.0 Normal (applies to non-numeric resul ts) [facility] ([facility] Eos % 3.4 % 0.0-3.0 Above high normal [facility] ([facility] Neutrophils # 6.9 10 1.5-8.5 Normal (applies to non-numeric re sults) [facility] ([facility] Nucleated Red Blood Cell % 0.0 % 0-0 Normal (applies to n on-numeric results) [facility] ([facility] [place] # 0.5 10 0.0-0.8 Normal (applies to non-numeric resul ts) [facility] ([facility] Lymph # 1.9 10 1.5-5.0 Normal (applies to non-numeric resul ts) [facility] ([facility] Eos # 0.3 10 0.0-0.5 Normal (applies to non-numeric resul ts) [facility] ([facility] Baso # 0.1 10 0.0-0.2 Normal (applies to non-numeric resul ts) [facility] ([facility] ID Date Data Source [id number] 01/02/2020 10:45:00 AM EST [facility] ([facility], ) Name Value Range Interpretation Code Description Data Rhonda rce(s) Supporting Document(s) Antinuclear Antibodies Direct Laboratory test result [facility] ([facility], ) Performed at: RN - [facility] [place] [id number] Buffer Inflated Pad: Angie Pace MD, Phone: [phone] ID Date Data Source [id number] 01/02/2020 10:45:00 AM EST [facility] ([facility], ) Name Value Range Interpretation Code Description Data Rhonda rce(s) Supporting Document(s) Erythrocyte sedimentation rate by 2H Westergren method 15 mm/hr 0-2 0 [facility] ([facility], ) ID Date Data Source [id number] 01/02/2020 10:45:00 AM EST [facility] ([facility], ) Name Value Range Interpretation Code Description Data Rhonda rce(s) Supporting Document(s) White Blood Count 9.2 10 4.0-10.0 [facility] ([facility], ) Red Blood Count 4.46 10 4.00-5.40 [facility] Hematocrit 42.5 % 36.0-47.0 [facility] ([facility]) Hemoglobin 13.8 g/dL 12.0-15.5 [facility] ([facility]) Mean Corpuscular Volume 95.3 fl 80.0-96.0 M EDENT ([facility]) Mean Corpuscular Hemoglobin 30.9 pg 27.0-33.0 [facility] ([facility]) Red Cell Distribution Width 13.0 % 11.5-14.5 [facility] ([facility]) Mean Corpuscular HGB Conc 32.5 g/dL 32.0-36.5 [facility] ([facility]) Platelet Count, Automated 375 10 150-450 [facility] ([facility]) Neutrophils % 62.3 % 36.0-66.0 [facility] ([facility]) Lymph % 27.2 % 24.0-44.0 [facility] ([facility]) Baso % 0.6 % 0.0-1.0 [facility] ([facility]) Immature Granulocyte % 0.3 % 0-3.0 [facility] [facility] [place] % 5.6 % 0.0-5.0 MED[facility] ([facility]) Eos % 4.0 % 0.0-3.0 [facility] ([facility]) Lymph # 2.5 10 1.5-5.0 [facility] ([facility]) Neutrophils # 5.8 10 1.5-8.5 MED[facility] ([facility]) Nucleated Red Blood Cell % 0.0 % 0-0 MED ENT ([facility]) [place] # 0.5 10 0.0-0.8 [facility] ([facility]) Baso # 0.1 10 0.0-0.2 [facility] ([facility]) Eos # 0.4 10 0.0-0.5 [facility] ([facility]) ID Date Data Source [id number] 01/02/2020 10:45:00 AM EST [facility] ([facility]) Name Value Range Interpretation Code Description Data Rhonda rce(s) Supporting Document(s) Thyrotropin [Units/volume] in Serum or Plasma 1.090 uIU/ML 0.358-3.74 0 [facility] ([facility]) Calcidiol [Mass/volume] in Serum or Plasma 20.4 ng/mL 30.0-100.0 [facility] Rheumatoid factor [Units/volume] in Serum or Plasma Laboratory test result [facility] ([facility]) ID Date Data Source [id number] 01/02/2020 10:45:00 AM EST [facility] ([facility]) Name Value Range Interpretation Code Description Data Rhonda rce(s) Supporting Document(s) Glucose, Fasting 82 mg/dL 70-100 [facility] ([facility]) Blood Urea Nitrogen 15 mg/dL 7-18 [facility] ([facility]) Creatinine For GFR 0.80 mg/dL 0.55-1.30 [facility] ([facility]) Sodium Level 137 meq/L 136-145 [facility] ([facility]) Glomerular Filtration Rate Laboratory test result [facility]) <content>Units are mL/min/1.73 m2</content>
<content></content>
<content>Chronic Kidney Disease Staging per NKF:</content>
<content></content>
<content>Stage I & II GFR >=60 Normal to Mildly Decreased</content>
<content>Stage III GFR 30- 59 Moderately Decreased</content>
<content>Stage IV GFR 15-29 Severely Decreased</content>
<content>Stage V GFR <15 Very Little GFR Left</content>
<content>ESRD GFR <15 on AUTOMOTIVE ELECTRICIAN</content>
<content></content> Carbon Dioxide Level 27 meq/L 21-32 [facility] ([facility]) Chloride Level 104 meq/L 98-107 [facility] ([facility]) Potassium Serum 4.2 meq/L 3.5-5.1 [facility] ([facility]) Calcium Level 9.3 mg/dL 8.5-10.1 [facility] ([facility]) Anion Gap 6 meq/L 8-16 [facility] ([facility], ) Ast/Sgot 24 U/L 7-37 [facility] ([facility], ) Alt/SGPT 31 U/L 12-78 [facility] ([facility]) Alkaline Phosphatase 73 U/L 45-117 [facility] ([facility]) Bilirubin,Total 0.1 mg/dL 0.2-1.0 [facility] ([facility]) Total Protein 7.9 GM/DL 6.4-8.2 [facility] ([facility], ) Albumin 3.9 GM/DL 3.2-5.2 [facility] ([facility]) Albumin/Globulin Ratio 0.98 1.00-1.93 [facility] ([facility]) ID Date Data Source [id number] 12/21/2019 12:00:00 AM [facility] Imaging Job Rausch MD Patient Name: NGA VILLAFANA [facility] 3 Date of : 1985[place][birth year] [place] [id number] Date of Exam: 12/21/2019PH#: Fax: [phone] EXAM: CT BRAIN WITHOUT CONTRASTPROCEDURE INFORMATION:Exam: CT Head Without ContrastExam date and time: 12/21/2019 10:23 AM Age: 34 years oldClinical indication: Pain; Headache; Other: Intracranial hypertensionTECHNIQUE: Imaging protocol: Computed tomography of the head withoutcontrast. Radiation optimization: All CT scans at this facility use atleast one of these dose optimization techniques: automated exposurecontrol; mA and/or kV adjustment per patient size (includes targeted examswhere dose is matched to clinical indication); or iterative reconstruction.COMPARISON: No relevant prior studies available.FINDINGS: Brain: There is no acute intracranial hemorrhage or mass effect.There is focal left medial occipital encephalomalacia. The normalgray/white matter delineation is preserved. Ventricles: There is ex vacuodilatation of the left occipital horn. Bones/joints: Unremarkable. No acutefracture. Sinuses: Visualized sinuses are unremarkable. No fluid levels.Mastoid air cells: Visualized mastoid air cells are well aerated. Softtis sues: Unremarkable.IMPRESSION: No acute intracranial hemorrhage or edema. Focal left medialoccipital encephalomalacia with associated ex vacuo dilatation of the leftoccipital horn.Thank you for allowing us to participate in the care of your patient.Dictated and Authenticated by: Sandra Anderson MD 12/21/2019 10:49 AMEastern Time ([place] & [place])VradV/Radhak you for referring SHANNON VILLAFANA to our office. Electronically Signed - [facility] 12/21/19 11:12 Name Value Range Interpretation Code Description Data Rhonda rce(s) Supporting Document(s) Procedure Social History Code Duration Value Status Description Data Source(s ) Smoking 11/27/2020 12:00:00 AM EST Never Smoker completed Never S moker eCW1 ([facility]ly [facility], 1928[facility]1983) Smoking 11/11/2020 12:00:00 AM EST Never Smoker completed Never S moker eCW1 (Formerly [facility], 1928–1983) Smoking 10/17/2020 12:00:00 AM EST Never Smoker completed Never S moker eCW1 ([facility]ly [facility], 1928–1983) Smoking 10/17/2020 12:00:00 AM EST Never Smoker completed Never S moker eCW1 ([facility]ly [facility], 1928–1983) Smoking 09/26/2020 12:00:00 AM EDT Never Smoker completed Never S moker eCW1 ([facility]ly [facility], [facility]–1983) Smoking 09/26/2020 12:00:00 AM EDT Never Smoker completed Never S moker eCW1 ([facility]ly [facility], [facility]–1983) Smoking 09/26/2020 12:00:00 AM EDT Never Smoker completed Never S moker eCW1 ([facility]ly [facility], [facility]–1983) Smoking 03/20/2020 12:00:00 AM EDT Never Smoker completed Never S moker eCW1 ([facility]ly [facility], [facility]–1983) Smoking 03/20/2020 12:00:00 AM EDT Never Smoker completed Never S moker eCW1 ([facility]ly [facility], [facility]–1983) Vital Signs ID Date Data Source UNK Name Value Range Interpretation Code Description Data Source(s) Oxygen saturation in Arterial blood by Pulse oximetry 98 % 98 % [facility] ([facility] Body mass index (BMI) [Ratio] 33.2 kg/m2 33.2 k g/m2 [facility] ([facility] [place] body weight 135 [lb_av] 135 [lb_av] MEDEN T ([facility] Body weight 212.00 [lb_av] 212.00 [lb_av] MEDEN T ([facility] Body height 67 [in_i] 67 [in_i] [facility] ([facility] 5'7" Respiratory rate 18 /min 18 /min [facility] ( [facility] Heart rate 88 /min 88 /min [facility] ([facility] Body temperature 98.2 [degF] 98.2 [degF] [facility] ([facility] Diastolic blood pressure 72 mm[Hg] 72 mm[Hg] [facility] ([facility] Systolic blood pressure 114 mm[Hg] 114 mm[Hg] M EDENT ([facility] Diastolic blood pressure 90 mm[Hg] 90 mm[Hg] eCW1 ([facility], [facility]) Systolic blood pressure 132 mm[Hg] 132 mm[Hg] e CW1 ([facility], 1928–1983) Body mass index (BMI) [Ratio] 34.27 kg/m2 34.27 kg/m2 eCW1 ([facility], [facility]–1983) Body height 67 [in_i] 67 [in_i] eCW1 ([facility]) Body weight 99.25 kg 99.25 kg eCW1 ([facility]) Body weight 218.8 [lb_av] 218.8 [lb_av] eCW1 ([facility]) Diastolic blood pressure 82 mm[Hg] 82 mm[Hg] eCW1 ([facility], [facility]) Systolic blood pressure 124 mm[Hg] 124 mm[Hg] e CW1 ([facility], 1928–1983) Body mass index (BMI) [Ratio] 34.52 kg/m2 34.52 kg/m2 W1 ([facility], 1928–1983) Body height 67 [in_i] 67 [in_i] eCW1 ([facility]) Body weight 99.97 kg 99.97 kg eCW1 ([facility]) Body weight 220.4 [lb_av] 220.4 [lb_av] eCW1 ([facility]) Diastolic blood pressure 70 mm[Hg] 70 mm[Hg] eCW1 ([facility], [facility]) Systolic blood pressure 100 mm[Hg] 100 mm[Hg] e CW1 ([facility], [facility]–1983) Body mass index (BMI) [Ratio] 34.27 kg/m2 34.27 kg/m2 W1 ([facility], [facility]–1983) Body height 67 [in_i] 67 [in_i] eCW1 ([facility]) Body weight 99.25 kg 99.25 kg W1 ([facility]) Body weight 218.8 [lb_av] 218.8 [lb_av] eCW1 ([facility]) Diastolic blood pressure 82 mm[Hg] 82 mm[Hg] eCW1 ([facility], [facility]) Systolic blood pressure 122 mm[Hg] 122 mm[Hg] e CW1 ([facility], [facility]–1983) Body mass index (BMI) [Ratio] 34.05 kg/m2 34.05 kg/m2 W1 ([facility], 1928–1983) Body height 67 [in_i] 67 [in_i] eCW1 ([facility]) Body weight 98.61 kg 98.61 kg eCW1 ([facility]) Body weight 217.4 [lb_av] 217.4 [lb_av] eCW1 ([facility]) Oxygen saturation in Arterial blood by Pulse oximetry 98 % 98 % [facility] ([facility] Body mass index (BMI) [Ratio] 33.5 kg/m2 33.5 k g/m2 [facility] ([facility] [place] body weight 135 [lb_av] 135 [lb_av] MEDEN T ([facility] Body weight 214.00 [lb_av] 214.00 [lb_av] MEDEN T ([facility] Body height 67 [in_i] 67 [in_i] [facility] ([facility] 5'7" Respiratory rate 18 /min 18 /min MED[facility] ( [facility] Heart rate 78 /min 78 /min [facility] ([facility] Body temperature 97.9 [degF] 97.9 [degF] [facility] ([facility] Diastolic blood pressure 76 mm[Hg] 76 mm[Hg] [facility] ([facility] Systolic blood pressure 120 mm[Hg] 120 mm[Hg] M EDENT ([facility] Body weight 210.00 [lb_av] 210.00 [lb_av] MEDEN T ([facility] Respiratory rate 14 /min 14 /min MED[facility] ( [facility] Heart rate 72 /min 72 /min [facility] ([facility] Body temperature 98.4 [degF] 98.4 [degF] [facility] ([facility] Diastolic blood pressure 82 mm[Hg] 82 mm[Hg] [facility] ([facility] Systolic blood pressure 124 mm[Hg] 124 mm[Hg] M EDENT ([facility] Diastolic blood pressure 72 mm[Hg] 72 mm[Hg] eCW1 ([facility], [facility]) Systolic blood pressure 122 mm[Hg] 122 mm[Hg] e CW1 ([facility], 1928–1983) Body mass index (BMI) [Ratio] 32.57 kg/m2 32.57 kg/m2 W1 ([facility], 1928–1983) Body height 67 [in_us] 67 [in_us] [facility] ([facility]) Body weight Measured 208.0 [lb_av] 208.0 [lb_av ] eCW1 ([facility]ly [facility], [facility]–1983) Oxygen saturation in Arterial blood by Pulse oximetry 98 % 98 % [facility] ([facility] Body mass index (BMI) [Ratio] 32.2 kg/m2 32.2 k g/m2 [facility] ([facility] Body weight 205.50 [lb_av] 205.50 [lb_av] MEDEN T ([facility] Body height 67 [in_i] 67 [in_i] MEDENT ([facility] 5'7" Respiratory rate 14 /min 14 /min MED[facility] ( [facility] Heart rate 80 /min 80 /min MEDPAULINE ([facility] Body temperature 97.7 [degF] 97.7 [degF] [facility] ([facility] Diastolic blood pressure 84 mm[Hg] 84 mm[Hg] [facility] ([facility] Systolic blood pressure 124 mm[Hg] 124 mm[Hg] M EDENT ([facility] [place] body weight 135 [lb_av] 135 [lb_av] MEDEN T ([facility] ) Body mass index (BMI) [Ratio] 32.9 kg/m2 32.9 k g/m2 MED[facility] ([facility], ) Body weight 210.00 [lb_av] 210.00 [lb_av] MEDEN T ([facility], ) Body height 67 [in_i] 67 [in_i] MED[facility] ([facility], ) 5'7" Patient Treatment Plan of Care Planned Activity Planned Date Details Description Data Source (s) Estradiol 1 MG Oral Tablet [Estrace] 12/03/2020 12:00:00 AM EST eCW1 (Formerly [facility], 1928–1983) Ibuprofen 800 MG Oral Tablet 10/19/2020 12:00:00 AM EST eCW1 (Formerly [facility], 1928–1983) 1 ML Leuprolide Acetate 3.75 MG/ML Prefilled Syringe [ Lupron] 02/14/2020 12:00:00 AM EDT eCW1 ([facility]) [place] 150 MG 02/12/2020 12:00:00 AM EDT eCW1 (Formerly [facility], 1928–1983)
[2021-01-23] MEDS ORDERED: ESTR1TAB (17:29)
--- OUTSIDE RECORDS SUMMARY | 2021-01-23 18:46 | CCD ---
Author Author [facility] Organization [facility] Address Unknown Phone Unavailable Care Team Providers Care Centre[facility] Radio Operator Name Role Phone MILNER, JAVIER Unavailable Unavailable [...] Unavailable JENNA H JOB CHAVEZ Unavailable Unavailable Cahmp RAUSCH MD Unavailable Unavailable JENNA H JOB [...] Unavailable Champ RAUSCH MD Unavailable Unavailable Champ ARUSCH MD Unavailable Unavailable Champ RAUSCH MD Unavailable [...] is protected by Article 27-F of the [facility] Public Health law. If you continue you may have access to information: Regarding HIV / AIDS; Provided by facilities licensed or operated by the [facility] Office of Mental Health; or Provided by the [facility] Office for People With Developmental Disabilities. If such information is present, then the following [facility] mandated warning applies: This information has been [...] law may result in a fine or long term sentence or both. A general authorization for the release of medical or other information is NOT sufficient authorization for further disc losure. Allergies and Adverse Reactions Type Description Substance Reaction Status Data Source(s ) Drug allergy Azithromycin Azithromycin stomach cramps Active eCW 1 ([facility]) bees bees bees Anaphylaxis Active eCW1 ([facility]) shellfish shellfish shellfish Anaphylaxis Active eCW1 ([facility]) bees bees bees Anaphylaxis Active eCW1 ([facility]) shellfish shellfish shellfish Anaphylaxis Active eCW1 ([facility]) Family History Family Member Name Family Member Gender Family Member Status Date o f Status Description Data Source(s) Unknown Unknown Problem MEDENT ([facility], ) Encounters Encounter Providers Location Date Indications Data Source(s ) Outpatient Attender: JOB RAUSCH MD [place] [facility] 02:40:00 PM EST MEDENT ([facility]) Outpatient Attender: MEG WOODRUFF MD Main office - [facility] 12/20/2020 07:30:00 AM EST [facility]ENT [facility] Outpatient Attender: Susan STILES 12/05/2020 09:00:00 AM [facility] (WC 20ESGYN) WCenter 20 Min Est Licensed Practical Nurse [address] [place] [address] 12/03/2020 12:00:00 AM EST eCW1 ([facility]) (WC 20ESGYN) WCenter 20 Min Est Licensed Practical Nurse [address] [place] [address] 11/11/2020 12:00:00 AM EST eCW1 ([facility]) (WC 20ESGYN) WCenter 20 Min Est Licensed Practical Nurse [address] [place] [address] 10/28/2020 12:00:00 AM EST eCW1 ([facility]) Unknown [address] [place] [address] 10/19/2020 12:00:00 AM EST eCW1 ([facility]) Unknown [address] [place] [address] 10/08/2020 12:00:00 AM EST eCW1 ([facility]) (WC 20ESGYN) WCenter 20 Min Est Licensed Practical Nurse [address] [place] [address] 09/27/2020 12:00:00 AM EDT eCW1 ([facility]) Unknown [address] [place] [address] 09/16/2020 12:00:00 AM EDT eCW1 ([facility]) Outpatient Attender: MEG WOODRUFF MD Main office - [facility] 09/10/2020 08:15:00 AM EDT MEDENT ([facility]) [facility] [address] [place] [address] 09/05/2020 12:00:00 AM EDT eCW1 ([facility]) Outpatient Attender: JOB RAUSCH MD [place] [facility] 04:00:00 PM EDT MEDENT ([facility] Outpatient Attender: MEG WOODRUFF MD Main office - [facility] 06/21/2020 08:15:00 AM EDT MEDENT ([facility]) Outpatient Attender: JOB RAUSCH MD [place] [facility] 03:40:00 PM EDT MEDENT ([facility] Unknown [address] [facility] [address] 06/10/2020 12:00:00 AM EDT eCW1 ([facility] [place] [address] [facility] [address] 06/07/2020 12:00:00 AM EDT eCW1 ([facility]) Outpatient Attender: MEG WOODRUFF MD Main office - [facility] 04/18/2020 02:45:00 PM EDT MEDENT ([facility]) [facility] [address] [place] [address] 03/20/2020 12:00:00 AM EDT eCW1 ([facility]) [facility] [address] [place] [address] 03/20/2020 12:00:00 AM EDT eCW1 ([facility]) [place] [address] [facility] [address] 02/26/2020 12:00:00 AM EDT eCW1 ([facility] [address] [place] [address] 02/16/2020 12:00:00 AM EDT eCW1 ([facility]) [facility] [address] [place] [address] 02/12/2020 12:00:00 AM EDT eCW1 ([facility]) Outpatient Referrer: JOB RAUSCH MD 02/01/2020 11:44:00 AM EST [facility] Outpatient Attender: JOB RAUSCH MD [place] [facility] 02:40:00 PM EST MEDENT ([facility] [...] {tablet} active Es trace 1 MG eCW1 ([facility]) Ibuprofen 800 MG Oral Tablet Ibuprofen 800 MG 10/19/2020 12:00:[address] suspended Ibuprofen 800 MG eCW1 ([facility]) Ibuprofen 800 MG Oral Tablet Ibuprofen 800 MG 10/19/2020 12:00:[address] active Ibuprofen 800 MG eCW1 ([facility]) Ibuprofen 800 MG Oral Tablet Ibuprofen 800 MG 10/19/2020 12:00:[address] suspended Ibuprofen 800 MG eCW1 ([facility]) Ibuprofen 800 MG Oral Tablet Ibuprofen 800 MG 10/19/2020 12:00:[address] active Ibuprofen 800 MG eCW1 ([facility]) Fluoxetine 40 MG Oral Capsule [Prozac] Prozac 07/15/2020 12:00:00 AM EDT ORAL active MEDENT ([facility] Orilissa Orilissa active MEDEN T ([facility] Cephalexin 500 MG Oral Capsule [Keflex] Keflex 06/12/2020 12:00:0 0 AM EDT ORAL completed MEDENT ([facility] zonisamide 25 MG Oral Capsule Zonisamide 06/11/2020 12:00:00 AM EDT ORAL active MEDENT ([facility], ) 1 ML Leuprolide Acetate 3.75 MG/ML Prefi lled Syringe [Lupron] Lupron Depot (1- Month) 3.75 MG Lupron Depot (1-Month) 3.75 MG 02/14/2020 12:00:00 AM EDT active as directed eCW1 ([facility]) 1 ML Leuprolide Acetate 3.75 MG/ML Prefi lled Syringe [Lupron] Lupron Depot (1- Month) 3.75 MG Lupron Depot (1-Month) 3.75 MG 02/14/2020 12:00:00 AM EDT suspended Lupron Depot (1-Month) 3. 75 MG eCW1 ([facility]) 1 ML Leuprolide Acetate 3.75 MG/ML Prefi lled Syringe [Lupron] Lupron Depot (1- Month) 3.75 MG Lupron Depot (1-Month) 3.75 MG 02/14/2020 12:00:00 AM EDT active Lupron Depot (1-Month) 3. 75 MG eCW1 ([facility]) 1 ML Leuprolide Acetate 3.75 MG/ML Prefi lled Syringe [Lupron] Lupron Depot (1- Month) 3.75 MG Lupron Depot (1-Month) 3.75 MG 02/14/2020 12:00:00 AM EDT suspended Lupron Depot (1-Month) 3. 75 MG eCW1 ([facility]) 1 ML Leuprolide Acetate 3.75 MG/ML Prefi lled Syringe [Lupron] Lupron Depot (1- Month) 3.75 MG Lupron Depot (1-Month) 3.75 MG 02/14/2020 12:00:00 AM EDT active Lupron Depot (1-Month) 3. 75 MG eCW1 ([facility]) 1 ML Leuprolide Acetate 3.75 MG/ML Prefi lled Syringe [Lupron] Lupron Depot (1- Month) 3.75 MG Lupron Depot (1-Month) 3.75 MG 02/14/2020 12:00:00 AM EDT active Lupron Depot (1-Month) 3. 75 MG eCW1 ([facility]) 1 ML Leuprolide Acetate 3.75 MG/ML Prefi lled Syringe [Lupron] Lupron Depot (1- Month) 3.75 MG Lupron Depot (1-Month) 3.75 MG 02/14/2020 12:00:00 AM EDT active Lupron Depot (1-Month) 3. 75 MG eCW1 ([facility]) 1 ML Leuprolide Acetate 3.75 MG/ML Prefi lled Syringe [Lupron] Lupron Depot (1- Month) 3.75 MG Lupron Depot (1-Month) 3.75 MG 02/14/2020 12:00:00 AM EDT active Lupron Depot (1-Month) 3. 75 MG eCW1 ([facility]) 1 ML Leuprolide Acetate 3.75 MG/ML Prefi lled Syringe [Lupron] Lupron Depot (1- Month) 3.75 MG Lupron Depot (1-Month) 3.75 MG 02/14/2020 12:00:00 AM EDT active Lupron Depot (1-Month) 3. 75 MG eCW1 ([facility]) 1 ML Leuprolide Acetate 3.75 MG/ML Prefi lled Syringe [Lupron] Lupron Depot (1- Month) 3.75 MG Lupron Depot (1-Month) 3.75 MG 02/14/2020 12:00:00 AM EDT active Lupron Depot (1-Month) 3. 75 MG eCW1 ([facility]) 1 ML Leuprolide Acetate 3.75 MG/ML Prefi lled Syringe [Lupron] Lupron Depot (1- Month) 3.75 MG Lupron Depot (1-Month) 3.75 MG 02/14/2020 12:00:00 AM EDT active as directed eCW1 ([facility]) Orilissa 150 MG Orilissa 150 MG 02/12/2020 12:00:00 AM EDT 1.0 { tablet} active Orilissa 150 MG eCW1 ([facility]) Orilissa 150 MG Orilissa 150 MG 02/12/2020 12:00:00 AM EDT 1.0 { tablet} active Orilissa 150 MG eCW1 ([facility]) Orilissa 150 MG Orilissa 150 MG 02/12/2020 12:00:00 AM EDT 1.0 { tablet} active Orilissa 150 MG eCW1 ([facility]) Orilissa 150 MG Orilissa 150 MG 02/12/2020 12:00:00 AM EDT 1.0 { tablet} active Orilissa 150 MG eCW1 ([facility]) Orilissa 150 MG Orilissa 150 MG 02/12/2020 12:00:00 AM EDT 1.0 { tablet} suspended Orilissa 150 MG eCW1 ([facility]) Orilissa 150 MG Orilissa 150 MG 02/12/2020 12:00:00 AM EDT 1.0 { tablet} active Orilissa 150 MG eCW1 ([facility]) Orilissa 150 MG Orilissa 150 MG 02/12/2020 12:00:00 AM EDT 1.0 { tablet} suspended Orilissa 150 MG eCW1 ([facility]) Orilissa 150 MG Orilissa 150 MG 02/12/2020 12:00:00 AM EDT active 1 tablet eCW1 ([facility]) Orilissa 150 MG Orilissa 150 MG 02/12/2020 12:00:00 AM EDT 1.0 { tablet} active Orilissa 150 MG eCW1 ([facility]) Orilissa 150 MG Orilissa 150 MG 02/12/2020 12:00:00 AM EDT active 1 tablet eCW1 ([facility]) Orilissa 150 MG Orilissa 150 MG 02/12/2020 12:00:00 AM EDT 1.0 { tablet} suspended Orilissa 150 MG eCW1 ([facility]) Alprazolam 0.5 MG Oral Tablet [Xanax] Xanax 01/18/2020 12:00:00 AM EST active MEDENT ([facility] ) zonisamide 50 MG Oral Capsule Zonisamide 01/02/2020 12:00:00 AM EST ORAL completed MEDENT ([facility], ) zonisamide 25 MG Oral Capsule Zonisamide 01/02/2020 12:00:00 AM EST ORAL completed MEDENT ([facility] ) Fluoxetine 20 MG Oral Capsule [Prozac] Prozac 12/13/2019 12:00:00 AM EST ORAL active MEDENT ([facility] Insurance Providers Payer name Policy type / Coverage type Policy ID Covered libertarian ID Covered libertarian's relationship to [place] Policy [place] Plan Information [place]BS [place] P[place] 302/307 [id number] SP [id number] BCBS [facility] [id number] SP [id number] SELF PAY UNAVAILABLE S UNAVAILA BLE BCBS [facility] [id number] SP [id number] EXCELLUS BCBS B [id number] S [id number] BCBS FEDERAL EMPLOYEE PROGRAM [id number] SP [id number] MVP [facility] [id number] SP [id number] EXCELLUS BCBS B [id number] S [id number] EXCELLUS BCBS B [id number] S [id number] EXCELLUS H [id number] Self [id number] Medicaid [facility] Part B [id number] Self [id number] [facility] Medicaid Health Maintenance Organization (HMO) [id number] Self [id number] [facility] [id number] SP [id number] MEDICAID [id number] SP [id number] [facility] [id number] SP [id number] ANSI-Commercial [id number] ANSI-Commercial [id number] ANSI-Commercial [id number] ANSI-Commercial [id number] ANSI-Commercial [id number] ANSI-Commercial [id number] MEDICAID M [id number] S [id number] [facility] O [id number] S [id number] ANSI-Commercial [id number] ANSI-Commercial [id number] [place]BS [place] PPO 302/307 [id number] SP [id number] [place]BS [place] PPO 302/307 [id number] SP [id number] EXCELLUS BCBS B [id number] S [id number] BCBS [place] PPO 302/307 [id number] SP [id number] BCBS [place] PPO 302/307 [id number] SP [id number] Excell[employer] BCBS Health Maintenance Organization (HMO) [id number] Self [id number] [employer] BCBS Health Maintenance Organization (HMO) [id number] Self [id number] BLUE CROSS [id number] S [id number] SELF PAY ON CONTRACT 35% CC DISC TILL 05/01/17 S 35% CC DISC TILL 05/01/17 BLUE CROSS [id number] S [id number] [employer] BCBS Health Maintenance Organization (HMO) [id number] Self [id number] BCBS [place] PPO 302/307 [id number] SP [id number] Excell[employer] BCBS Health Maintenance Organization (HMO) Self EXCELLUS BCBS B [id number] S [id number] Blue Cross Blue Shield P [id number] SELF [id number] BCBS [place] 303/803 [id number] SP [id number] BLUE CROSS O [id number] S [id number] EXCELLUS BCBS S [id number] S [id number] STATE INSURANCE FUND P [id number] S [id number] BC/BS OF [place] S [id number] S [id number] P UNAVAILABLE UNAVAILA BLE Problems, Conditions, and Diagnoses Code Display Name Description Problem Type Effective Dates Data Source(s) N80.9 Endometriosis Endometriosis Problem 05/22/2020 12:00:00 AM EDT eCW1 ([facility]) 67172015 Headache Headache Problem 01/02/2020 12:00:00 AM DEBORA MAGANA ([facility], ) Z23 Encounter for immunization ENCOUNTER FOR IMMUNIZATION Diagnosis 12/05/2020 09:00:00 AM [facility] Surgeries/Procedures Procedure Description Date Indications Data Source(s) Injection For Nerve Block, Greater Occipital Nerve 01/07/2021 12:00:00 AM EST MEDENT ([facility], ) INJECTION ANES OTHER PERIPHERAL NERVE/BRANCH 1 12:00:00 AM EST MEDENT ([facility], ) Injection For Nerve Block, Greater Occipital Nerve 12/03/2020 12:00:00 AM EST MEDENT ([facility], ) INJECTION ANES OTHER PERIPHERAL NERVE/BRANCH 1 12:00:00 AM EST MEDENT ([facility], ) Injection For Nerve Block, Greater Occipital Nerve 10/30/2020 12:00:00 AM EST MEDENT ([facility], ) INJECTION ANES OTHER PERIPHERAL NERVE/BRANCH 0 12:00:00 AM EST MEDENT ([facility], ) Injection For Nerve Block, Greater Occipital Nerve 09/30/2020 12:00:00 AM EST MEDENT ([facility], ) INJECTION ANES OTHER PERIPHERAL NERVE/BRANCH 0 12:00:00 AM EST MEDENT ([facility], ) Injection For Nerve Block, Greater Occipital Nerve 08/27/2020 12:00:00 AM EDT MEDENT ([facility], ) INJECTION ANES OTHER PERIPHERAL NERVE/BRANCH 0 12:00:00 AM EDT MEDENT ([facility], ) Injection For Nerve Block, Greater Occipital Nerve 07/23/2020 12:00:00 AM EDT MEDENT ([facility], ) INJECTION ANES OTHER PERIPHERAL NERVE/BRANCH 0 12:00:00 AM EDT MEDENT ([facility], ) Injection For Nerve Block, Greater Occipital Nerve 06/19/2020 12:00:00 AM EDT MEDENT ([facility], ) INJECTION ANES OTHER PERIPHERAL NERVE/BRANCH 0 12:00:00 AM EDT MEDENT ([facility], ) Injection For Nerve Block, Greater Occipital Nerve 2020 12:00:00 AM EDT MEDENT ([facility], ) INJECTION ANES OTHER PERIPHERAL NERVE/BRANCH 0 12:00:00 AM EDT MEDENT ([facility], ) Magnetic Resonance Angiogtaphy Head W/O Contrast Material(S) 04/20/2020 12:00:00 AM EDT MEDENT ([facility] Magnetic Resonance Angiogtaphy Head W/O Contrast Material(S) 04/20/2020 12:00:00 AM EDT MEDENT ([facility] Magnetic Resonance Angiography Neck W/O Contrast Materials 04/20/2020 12:00:00 AM EDT MEDENT ([facility] Magnetic Resonance Angiography Neck W/O Contrast Materials 04/20/2020 12:00:00 AM EDT MEDENT ([facility]) Injection For Nerve Block, Greater Occipital Nerve 04/04/2020 12:00:00 AM EDT MEDENT ([facility], ) INJECTION ANES OTHER PERIPHERAL NERVE/BRANCH 0 12:00:00 AM EDT MEDENT ([facility], ) PHYSICIAN TELEPHONE EVALUATION 11-20 MIN 03/20/2020 12 :00:00 AM EDT eCW1 ([facility]) Injection For Nerve Block, Greater Occipital Nerve 03/05/2020 12:00:00 AM EDT MEDENT ([facility], ) INJECTION ANES OTHER PERIPHERAL NERVE/BRANCH 0 12:00:00 AM EDT MEDENT ([facility], ) MRI BRAIN BRAIN STEM W/O CONTRAST MATERIAL 02/24/2020 12:00:00 AM EDT MEDENT ([facility], ) MRI BRAIN BRAIN STEM W/O CONTRAST MATERIAL 02/24/2020 12:00:00 AM EDT MEDENT ([facility], ) Magnetic Resonance Angiogtaphy Head W/O Contrast Material(S) 01/20/2020 12:00:00 AM EST MEDENT ([facility] Magnetic Resonance Angiogtaphy Head W/O Contrast Material(S) 01/20/2020 12:00:00 AM EST MEDENT ([facility] TSTG ANS FUNCJ CARDIOVAGAL INNERVAJ PARASYMP 0 12:00:00 AM EST MEDENT ([facility], ) TSTG ANS FUNCJ CARDIOVAGAL INNERVAJ PARASYMP 0 12:00:00 AM EST MEDENT ([facility]) TESTING AUTONOMIC NERVOUS SYSTEM FUNCTION 01/03/2020 1 2:00:00 AM EST MEDENT ([facility]) TESTING AUTONOMIC NERVOUS SYSTEM FUNCTION 01/03/2020 1 2:00:00 AM EST MEDENT ([facility], ) Results ID Date Data Source [id number] 01/08/2021 07:51:00 AM EST [facility] Received: 01/07/2021 at 13:02:00 QPT : [facility], [address], [address] [place] [address], [phone], Rasheed Jensen MD Received: 01/07/2021 at 13:02:00 QPT : [facility], [address], [address] [place] [address], [phone] MD Received: 01/07/2021 at 13:02:00 QPT : [facility], [address], [address] [place] [address], [phone], Rasheed Jensen MD Name Value Range Interpretation Code Description Data Rhonda rce(s) Supporting Document(s) ID Date Data Source [id number] 01/08/2021 06:57:00 AM EST [facility] Received: 01/07/2021 at 13:02:00 QPT : [facility], [address], [address] [place] [address], [phone] MD Received: 01/07/2021 at 13:02:00 QPT : [facility], [address], [address] [place] [address], [phone] MD Received: 01/07/2021 at 13:02:00 QPT : [facility], [address], [address] [place] [address], [phone] MD Name Value Range Interpretation Code Description [...] results) [facility] ID Date Data Source [id number] 01/08/2021 06:57:00 AM EST [facility] Received: 01/07/2021 at 13:02:00 QPT : [facility], [address], [address] [place] [address], [phone] MD Received: 01/07/2021 at 13:02:00 QPT : [facility], [address], [address] [place] [address], [phone] MD Received: 01/07/2021 at 13:02:00 QPT : [facility], [address], [address] [place] [address], [phone] MD Name Value Range Interpretation Code Description Data Rhonda rce(s) Supporting Document(s) Thyrotropin [Units/volume] in Serum or Plasma [facility] ID Date Data Source [id number] 01/08/2021 07:51:00 AM EST [facility] Received: 01/07/2021 at 13:02:00 QPT : [facility], [address], [address] [place] [address], [phone] MD Received: 01/07/2021 at 13:02:00 QPT : [facility], [address], [address] [place] [address], [phone] MD Received: 01/07/2021 at 13:02:00 QPT : [facility], [address], [address] [place] [address], [phone] MD Name Value Range Interpretation Code Description [...] results) [facility] ID Date Data Source [id number] 10/18/2020 06:30:00 AM EST MED[facility] Name Value Range Interpretation Code Description Data Rhonda rce(s) Supporting Document(s) Blood Type Laboratory test result Normal (applies to non-n umeric results) MEDPAULINE ([facility] AB Screen (Indirect Gopi)Vis Laboratory test result Normal (applies to non- numeric results) MEDPAULINE ([facility] ) ID Date Data Source [id number] 10/18/2020 06:30:00 AM EST MEDENT ([facility] Name [...] Normal (applies to n on-numeric results) MEDENT ([facility] Red Cell Distribution Width 13.3 % 11.5-14.5 Norm al (applies to non-numeric results) MEDENT ([facility] ) Platelet Count, Automated 375 10 150-450 Normal (applies to non-numeric results) MEDENT ([facility] ) ID Date Data Source [id number] 10/13/2020 09:00:00 AM EST [facility] Name Value Range Interpretation Code Description Data Rhonda rce(s) Supporting Document(s) SARS coronavirus 2 RNA [facility] This lab was ordered by [facility] and reported by [facility]. ID Date Data Source [id number] 01/27/2020 09:47:00 AM EST MEDENT ([facility] Name Value Range Interpretation Code Description Data Rhonda rce(s) Supporting Document(s) Reflex Urine Culture Laboratory test result Norm al (applies to non-numeric results) MEDENT ([facility] ) FULL REPORT IN LAB NOTES (eCW and Medent ). SPECIMEN APPEARS CONTAMINATED ID Date Data Source [id number] 01/27/2020 09:47:00 AM EST MEDENT ([facility] Name Value Range Interpretation Code Description Data Rhonda rce(s) Supporting Document(s) Color, Urine RFX Laboratory test result Normal ( applies to non-numeric results) MEDENT ([facility] ) Appearance, Urine RFX Laboratory test result Above high no rmal MEDENT ([facility] PH,Urine RFX 7.0 units 5.0-9.0 Normal (applies to non-numeric res ults) MEDENT ([facility] Specific [place] Ur Auto RFX 1.017 1.002-1.035 Nor mal (applies to non-numeric results) MEDENT ([facility] ) Protein, Urine Auto RFX Laboratory test result N ormal (applies to non-numeric results) MEDENT ([facility] ) Ketone, Urine Auto RFX Laboratory test result No rmal (applies to non-numeric results) MEDENT ([facility] ) Urobilinogen, Urine Auto RFX 0.2 mg/dL 0.0-2.0 Nor mal (applies to non-numeric results) MEDENT ([facility] ) Glucose, Urine (Ua) Auto RFX Laboratory test result Normal (applies to non- numeric results) MEDENT ([facility] ) Leukocyte Esterase Ur Auto RFX Laboratory test result Abov e high normal MED[facility] ([facility] Nitrite, Urine Auto RFX Laboratory test result N ormal (applies to non-numeric results) MEDENT ([facility] ) Bilirubin, Urine Auto RFX Laboratory test result Normal (applies to non- numeric results) MED[facility] ([facility] ) WBC, Urine Auto RFX 56 /HPF 0-3 Above high normal MEDENT ([facility] Bacteria, Urine Auto RFX Laboratory test result Above high normal MED[facility] ([facility] Blood, Urine Blood RFX Laboratory test result No rmal (applies to non-numeric results) [facility] ([facility] ) RBC, Urine Auto RFX 4 /HPF 0-3 Above high normal [facility] ([facility] Amorphous Sediment RFX Laboratory test result Above high n ormal MED[facility] ([facility] Squam Epithelial Cell Ur Aurfx 12 /HPF 0-6 N ormal (applies to non-numeric results) [facility] ([facility] ) Hyaline Cast, Urine Auto RFX 0 /LPF 0-1 Normal (appl ies to non-numeric results) [facility] ([facility] ID Date Data Source [id number] 01/27/2020 08:52:00 AM EST MED[facility] ([facility] Name Value Range Interpretation Code Description Data Rhonda rce(s) Supporting Document(s) Laboratory test finding (navigational concept) 40.0 % 3 8.0-51.0 Normal (applies to non-numeric results) [facility] ([facility] Laboratory test finding (navigational concept) 93 mg/dL 7 0-105 Normal (applies to non-numeric results) [facility] ([facility] Laboratory test finding (navigational concept) 4.8 mg/dL 4 .5-5.3 Normal (applies to non-numeric results) [facility] ([facility] Laboratory test finding (navigational concept) 3.7 meq/L 3 .5-5.1 Normal (applies to non-numeric results) [facility] ([facility] Laboratory test finding (navigational concept) 139 meq/L 1 36-145 Normal (applies to non-numeric results) [facility] ([facility] Laboratory test finding (navigational concept) 24.0 MM/L 2 3.0-27.0 Normal (applies to non-numeric results) [facility] ([facility] Laboratory test finding (navigational concept) 12 mg/dL 8 -26 Normal (applies to non-numeric results) [facility] ([facility]) Laboratory test finding (navigational concept) 106 meq/L 9 8-109 Normal (applies to non-numeric results) [facility] ([facility] Laboratory test finding (navigational concept) 0.8 mg/dL 0 .6-1.3 Normal (applies to non-numeric results) [facility] ([facility] ID Date Data Source [id number] 01/27/2020 08:45:00 AM EST [facility] ([facility] Name Value Range Interpretation Code Description Data Rhonda rce(s) Supporting Document(s) Laboratory test finding (navigational concept) Laboratory test r esult Normal (applies to non-numeric results) [facility] <content>QUANTITATIVE RESULT QU ALITATIVE INTERPRETATION</content>
<content> </content>
<content><5.0 IU/L NEGATIVE</content>
<content>5.0 - 25.0 IU/L INDETERMINATE</content>
<content>>25.0 IU/L POSITIVE</content>
<content></content> ID Date Data Source [id number] 01/27/2020 08:33:00 AM EST [facility] ([facility] Name Value Range Interpretation Code Description Data Rhonda rce(s) Supporting Document(s) Lipoprotein lipase [Enzymatic activity/volume] in Serum or Plasm a 83 U/L 73-393 Normal (applies to non-numeric results) [facility] ([facility] ID Date Data Source [id number] 01/27/2020 08:33:00 AM EST [facility] ID Date Data Source [id number] 01/27/2020 08:33:00 AM EST [facility] ([facility] [...] Normal ( applies to non-numeric results) [facility] ([facility] ) Hemoglobin 13.6 g/dL 12.0-15.5 Normal (applies to non-numeric resul ts) [facility] ([facility] Mean Corpuscular Hemoglobin 31.7 pg 27.0-33.0 Norm al (applies to non-numeric results) [facility] ([facility] ) Mean Corpuscular HGB Conc 34.3 g/dL 32.0-36.5 Normal (applies to non-numeric results) [facility] ([facility] ) Red Cell Distribution Width 12.8 % 11.5-14.5 Norm al (applies to non-numeric results) [facility] ([facility] ) Platelet Count, Automated 327 10 150-450 Normal (applies to non-numeric results) [facility] ([facility] Neutrophils % 71.3 % 36.0-66.0 Above high normal MEDE NT ([facility] Lymph % 19.3 % 24.0-44.0 Below low normal [facility] ( [facility] [place] % 5.0 % 0.0-5.0 Normal (applies to non-numeric resul ts) [facility] ([facility] Immature Granulocyte % 0.3 % 0-3.0 Normal (applies to non-n umeric results) [facility] ([facility] Baso % 0.7 % 0.0-1.0 Normal (applies to non-numeric resul ts) [facility] ([facility] Eos % 3.4 % 0.0-3.0 Above high normal [facility] ([facility] Neutrophils # 6.9 10 1.5-8.5 Normal (applies to non-numeric re sults) [facility] ([facility] Nucleated Red Blood Cell % 0.0 % 0-0 Normal (applies to n on-numeric results) [facility] ([facility] [place] # 0.5 10 0.0-0.8 Normal (applies to non-numeric resul ts) [facility] ([facility] Lymph # 1.9 10 1.5-5.0 Normal (applies to non-numeric resul ts) [facility] ([facility] Eos # 0.3 10 0.0-0.5 Normal (applies to non-numeric resul ts) [facility] ([facility] Baso # 0.1 10 0.0-0.2 Normal (applies to non-numeric resul ts) [facility] ([facility] ID Date Data Source [id number] 01/02/2020 10:45:00 AM EST [facility] ([facility], ) Name Value Range Interpretation Code Description Data Rhonda rce(s) Supporting Document(s) Antinuclear Antibodies Direct Laboratory test result [facility] ([facility], ) Performed at: RN - [facility] [place] [id number] Research Associate: Angie Pace MD, Phone: [phone] ID Date Data Source [id number] 01/02/2020 10:45:00 AM EST [facility] ([facility], ) Name Value Range Interpretation Code Description Data Rhonda rce(s) Supporting Document(s) Erythrocyte sedimentation rate by 2H Westergren method 15 mm/hr 0-2 0 [facility] ([facility], ) ID Date Data Source [id number] 01/02/2020 10:45:00 AM EST [facility] ([facility], ) Name Value Range Interpretation Code Description Data Rhonda rce(s) Supporting Document(s) White Blood Count 9.2 10 4.0-10.0 [facility] ([facility], ) Red Blood Count 4.46 10 4.00-5.40 [facility] Hematocrit 42.5 % 36.0-47.0 [facility] ([facility]) Hemoglobin 13.8 g/dL 12.0-15.5 [facility] ([facility]) Mean Corpuscular Volume 95.3 fl 80.0-96.0 M EDENT ([facility]) Mean Corpuscular Hemoglobin 30.9 pg 27.0-33.0 [facility] ([facility]) Red Cell Distribution Width 13.0 % 11.5-14.5 [facility] ([facility]) Mean Corpuscular HGB Conc 32.5 g/dL 32.0-36.5 [facility] ([facility]) Platelet Count, Automated 375 10 150-450 [facility] ([facility]) Neutrophils % 62.3 % 36.0-66.0 [facility] ([facility]) Lymph % 27.2 % 24.0-44.0 [facility] ([facility]) Baso % 0.6 % 0.0-1.0 [facility] ([facility]) Immature Granulocyte % 0.3 % 0-3.0 [facility] ([facility]) [place] % 5.6 % 0.0-5.0 [facility] ([facility]) Eos % 4.0 % 0.0-3.0 [facility] ([facility]) Lymph # 2.5 10 1.5-5.0 [facility] ([facility]) Neutrophils # 5.8 10 1.5-8.5 [facility] ([facility]) Nucleated Red Blood Cell % 0.0 % 0-0 MED ENT ([facility]) [place] # 0.5 10 0.0-0.8 [facility] ([facility]) Baso # 0.1 10 0.0-0.2 [facility] ([facility]) Eos # 0.4 10 0.0-0.5 [facility] ([facility]) ID Date Data Source [id number] 01/02/2020 10:45:00 AM EST [facility] ([facility]) Name Value Range Interpretation Code Description Data Rhonda rce(s) Supporting Document(s) Thyrotropin [Units/volume] in Serum or Plasma 1.090 uIU/ML 0.358-3.74 0 [facility] ([facility]) Calcidiol [Mass/volume] in Serum or Plasma 20.4 ng/mL 30.0-100.0 [facility] ([facility]) Rheumatoid factor [Units/volume] in Serum or Plasma Laboratory test result [facility] ([facility]) ID Date Data Source [id number] 01/02/2020 10:45:00 AM EST [facility] ([facility]) Name Value Range Interpretation Code Description Data Rhonda rce(s) Supporting Document(s) Glucose, Fasting 82 mg/dL 70-100 [facility] ([facility]) Blood Urea Nitrogen 15 mg/dL 7-18 [facility] ([facility]) Creatinine For GFR 0.80 mg/dL 0.55-1.30 [facility] ([facility]) Sodium Level 137 meq/L 136-145 [facility] ([facility]) Glomerular Filtration Rate Laboratory test result [facility] ([facility]) <content>Units are mL/min/1.73 m2</content>
<content></content>
<content>Chronic Kidney Disease Staging per NKF:</content>
<content></content>
<content>Stage I & II GFR >=60 Normal to Mildly Decreased</content>
<content>Stage III GFR 30- 59 Moderately Decreased</content>
<content>Stage IV GFR 15-29 Severely Decreased</content>
<content>Stage V GFR <15 Very Little GFR Left</content>
<content>ESRD GFR <15 on INSPECTOR BICYCLE</content>
<content></content> Carbon Dioxide Level 27 meq/L 21-32 [facility] ([facility]) Chloride Level 104 meq/L 98-107 [facility] ([facility]) Potassium Serum 4.2 meq/L 3.5-5.1 [facility] ([facility]) Calcium Level 9.3 mg/dL 8.5-10.1 [facility] ([facility]) Anion Gap 6 meq/L 8-16 [facility] ([facility], ) Ast/Sgot 24 U/L 7-37 [facility] ([facility], ) Alt/SGPT 31 U/L 12-78 [facility] ([facility]) Alkaline Phosphatase 73 U/L 45-117 [facility] ([facility]) Bilirubin,Total 0.1 mg/dL 0.2-1.0 [facility] ([facility]) Total Protein 7.9 GM/DL 6.4-8.2 [facility] ([facility], ) Albumin 3.9 GM/DL 3.2-5.2 [facility] ([facility]) Albumin/Globulin Ratio 0.98 1.00-1.93 [facility] ([facility]) ID Date Data Source [id number] 12/21/2019 12:00:00 AM [facility] Job Rausch MD Patient Name: NGA VILLAFANA [facility] 3 Date of : 1985Car[birth year] [place] [id number] Date of Exam: 12/21/2019PH#: Fax: [phone] EXAM: [...] Never Smoker completed Never S moker eCW1 ([facility]) Smoking 11/11/2020 12:00:00 AM EST Never Smoker completed Never S moker eCW1 ([facility]) Smoking 10/17/2020 12:00:00 AM EST Never Smoker completed Never S moker eCW1 ([facility]) Smoking 10/17/2020 12:00:00 AM EST Never Smoker completed Never S moker eCW1 ([facility]) Smoking 09/26/2020 12:00:00 AM EDT Never Smoker completed Never S moker eCW1 ([facility]) Smoking 09/26/2020 12:00:00 AM EDT Never Smoker completed Never S moker eCW1 ([facility]) Smoking 09/26/2020 12:00:00 AM EDT Never Smoker completed Never S moker eCW1 ([facility]) Smoking 03/20/2020 12:00:00 AM EDT Never Smoker completed Never S moker eCW1 ([facility]) Smoking 03/20/2020 12:00:00 AM EDT Never Smoker completed Never S moker eCW1 ([facility]) Vital Signs ID Date Data Source [id number] Name Value Range Interpretation Code Description Data Source(s) Oxygen saturation in Arterial blood by Pulse oximetry 98 % 98 % [facility] ([facility] Body mass index (BMI) [Ratio] 33.2 kg/m2 33.2 k g/m2 [facility] ([facility] Neely body weight 135 [lb_av] 135 [lb_av] MEDEN T ([facility] Body weight 212.00 [lb_av] 212.00 [lb_av] MEDEN T ([facility] Body height 67 [in_i] 67 [in_i] [facility] ([facility] 5'7" Respiratory rate 18 /min 18 /min [facility] ( [facility] Heart rate 88 /min 88 /min [facility] ([facility] Body temperature 98.2 [degF] 98.2 [degF] [facility] ([facility] Diastolic blood pressure 72 mm[Hg] 72 mm[Hg] [facility] ([facility] Systolic blood pressure 114 mm[Hg] 114 mm[Hg] M EDENT ([facility] Diastolic blood pressure 90 mm[Hg] 90 mm[Hg] eCW1 ([facility]) Systolic blood pressure 132 mm[Hg] 132 mm[Hg] e CW1 ([facility]) Body mass index (BMI) [Ratio] 34.27 kg/m2 34.27 kg/m2 eCW1 ([facility]) Body height 67 [in_i] 67 [in_i] eCW1 ([facility]) Body weight 99.25 kg 99.25 kg eCW1 ([facility]) Body weight 218.8 [lb_av] 218.8 [lb_av] eCW1 ([facility]) Diastolic blood pressure 82 mm[Hg] 82 mm[Hg] eCW1 ([facility]) Systolic blood pressure 124 mm[Hg] 124 mm[Hg] e CW1 ([facility]) Body mass index (BMI) [Ratio] 34.52 kg/m2 34.52 kg/m2 W1 ([facility]) Body height 67 [in_i] 67 [in_i] eCW1 ([facility]) Body weight 99.97 kg 99.97 kg eCW1 ([facility]) Body weight 220.4 [lb_av] 220.4 [lb_av] eCW1 ([facility]) Diastolic blood pressure 70 mm[Hg] 70 mm[Hg] eCW1 ([facility]) Systolic blood pressure 100 mm[Hg] 100 mm[Hg] e CW1 ([facility]) Body mass index (BMI) [Ratio] 34.27 kg/m2 34.27 kg/m2 W1 ([facility]) Body height 67 [in_i] 67 [in_i] eCW1 ([facility]) Body weight 99.25 kg 99.25 kg W1 ([facility]) Body weight 218.8 [lb_av] 218.8 [lb_av] eCW1 ([facility]) Diastolic blood pressure 82 mm[Hg] 82 mm[Hg] eCW1 ([facility]) Systolic blood pressure 122 mm[Hg] 122 mm[Hg] e CW1 ([facility]) Body mass index (BMI) [Ratio] 34.05 kg/m2 34.05 kg/m2 W1 ([facility]) Body height 67 [in_i] 67 [in_i] eCW1 ([facility]) Body weight 98.61 kg 98.61 kg eCW1 ([facility]) Body weight 217.4 [lb_av] 217.4 [lb_av] eCW1 ([facility]) Oxygen saturation in Arterial blood by Pulse oximetry 98 % 98 % [facility] ([facility] Body mass index (BMI) [Ratio] 33.5 kg/m2 33.5 k g/m2 [facility] ([facility] [place] body weight 135 [lb_av] 135 [lb_av] MEDEN T ([facility] Body weight 214.00 [lb_av] 214.00 [lb_av] MEDEN T ([facility] Body height 67 [in_i] 67 [in_i] [facility] ([facility] 5'7" Respiratory rate 18 /min 18 /min [facility] ( [facility] Heart rate 78 /min 78 /min [facility] ([facility] Body temperature 97.9 [degF] 97.9 [degF] [facility] ([facility] Diastolic blood pressure 76 mm[Hg] 76 mm[Hg] [facility] ([facility] Systolic blood pressure 120 mm[Hg] 120 mm[Hg] M EDENT ([facility] Body weight 210.00 [lb_av] 210.00 [lb_av] MEDEN T ([facility] Respiratory rate 14 /min 14 /min [facility] ( [facility] Heart rate 72 /min 72 /min [facility] ([facility] Body temperature 98.4 [degF] 98.4 [degF] [facility] ([facility] Diastolic blood pressure 82 mm[Hg] 82 mm[Hg] [facility] ([facility] Systolic blood pressure 124 mm[Hg] 124 mm[Hg] M EDENT ([facility] Diastolic blood pressure 72 mm[Hg] 72 mm[Hg] eCW1 ([facility]) Systolic blood pressure 122 mm[Hg] 122 mm[Hg] e CW1 ([facility]) Body mass index (BMI) [Ratio] 32.57 kg/m2 32.57 kg/m2 W1 ([facility]) Body height 67 [in_us] 67 [in_us] [facility] ([facility]) Body weight Measured 208.0 [lb_av] 208.0 [lb_av ] eCW1 ([facility]) Oxygen saturation in Arterial blood by Pulse oximetry 98 % 98 % [facility] ([facility] Body mass index (BMI) [Ratio] 32.2 kg/m2 32.2 k g/m2 [facility] ([facility] Body weight 205.50 [lb_av] 205.50 [lb_av] MEDEN T ([facility] Body height 67 [in_i] 67 [in_i] MED[facility] ([facility] 5'7" Respiratory rate 14 /min 14 /min MED[facility] ( [facility] Heart rate 80 /min 80 /min MED[facility]UL[facility] ([facility] Body temperature 97.7 [degF] 97.7 [degF] [facility] ([facility] Diastolic blood pressure 84 mm[Hg] 84 mm[Hg] [facility] ([facility] Systolic blood pressure 124 mm[Hg] 124 mm[Hg] M EDENT ([facility] [place] body weight 135 [lb_av] 135 [lb_av] MEDEN T ([facility], ) Body mass index (BMI) [Ratio] 32.9 kg/m2 32.9 k g/m2 MED[facility] ([facility], ) Body weight 210.00 [lb_av] 210.00 [lb_av] MEDEN T ([facility], ) Body height 67 [in_i] 67 [in_i] MED[facility] ([facility], ) 5'7" Patient Treatment Plan of Care Planned Activity Planned Date Details Description Data Source (s) Estradiol 1 MG Oral Tablet [Estrace] 12/03/2020 12:00:00 AM EST eCW1 ([facility]) Ibuprofen 800 MG Oral Tablet 10/19/2020 12:00:00 AM EST eCW1 ([facility]) 1 ML Leuprolide Acetate 3.75 MG/ML Prefilled Syringe [ Lupron] 02/14/2020 12:00:00 AM EDT eCW1 ([facility]) [place] 150 MG 02/12/2020 12:00:00 AM EDT eCW1 ([facility])
[2021-01-23] MEDS ORDERED: SILVER NITRATE APPLICATOR TOP ONE (19:05)
[2021-01-23 19:42] LABS: BASO # 0.1 10^3/uL (0.0-0.2); BASO % 0.6 % (0.0-1.0); EOS # 0.7 10^3/uL (0.0-0.5); EOS % 6.3 % (0.0-3.0); HEMOGLOBIN 13.2 g/dl (12.0-15.5); LYMPH # 3.1 10^3/uL (1.5-5.0); MEAN CORPUSCULAR HEMOGLOBIN 31.3 pg (27.0-33.0); MEAN CORPUSCULAR HGB CONC 33.8 g/dl (32.0-36.5); MEAN CORPUSCULAR VOLUME 92.4 fl (80.0-96.0); MONO # 0.6 10^3/uL (0.0-0.8); MONO % 5.5 % (2.0-8.0); NEUTROPHILS # 5.9 10^3/uL (1.5-8.5); NEUTROPHILS % 57.2 % (36.0-66.0); PLATELET COUNT, AUTOMATED 440 10^3/uL (150-450); RED BLOOD COUNT 4.22 10^6/uL (4.00-5.40); WHITE BLOOD COUNT 10.3 10^3/uL (4.0-10.0)
[2021-01-23 19:52] LABS: ALBUMIN 3.7 GM/DL (3.2-5.2); ALT/SGPT 22 U/L (12-78); BILIRUBIN,TOTAL 0.1 MG/DL (0.2-1.0); BLOOD UREA NITROGEN 15 MG/DL (7-18); CALCIUM LEVEL 9.2 MG/DL (8.5-10.1); CARBON DIOXIDE LEVEL 25 MEQ/L (21-32); CHLORIDE LEVEL 107 MEQ/L (98-107); CREATININE FOR GFR 0.81 MG/DL (0.55-1.30); GLOMERULAR FILTRATION RATE > 60.0 (>60); GLUCOSE, FASTING 96 MG/DL (70-100); POTASSIUM SERUM 4.2 MEQ/L (3.5-5.1); SODIUM LEVEL 139 MEQ/L (136-145); TOTAL PROTEIN 7.5 GM/DL (6.4-8.2)
[2021-01-23 20:10] VITALS: BP 129/88
--- NOTE | 2021-01-24 06:46 | CR.PDOC ---
General Date of Consultation: Jan 23, 2021 Consultation REASON FOR CONSULTATION/CHIEF COMPLAINT: Vaginal bleeding status post RALH/BSO for endometriosis in Sep 2020. HISTORY OF PRESENT ILLNESS: Patient complains of several days vaginal bleeding. Non-provoked. Denies large blood clot. Occasional bright red spotting. Currently blood is dark brown. Denies pelvic pain. Sexually active and denies dyspareunia or bleeding with intercourse. Tolerating PO. Ambulating without difficulty. No incontinence. No foul vaginal odor / discharge. Has been evaluated / examined during postoperative course; no significant findings. ALLERGIES: Please see above HOME MEDICATIONS: Please see ER note PHYSICAL EXAMINATION: VITAL SIGNS: Please see below. GENERAL APPEARANCE: NAD ABDOMEN: soft, nontender, nondistended, no guarding or rebound tenderness EXTREMITIES: no c/c/e PELVIC: SSE/SVE, vaginal cuff completely intact. Small area of granulation tissue (chemically cauterized with silver nitrate). No active bleeding. Mild- mod vaginal atrophic changes of the mucosa. No lesions. LABORATORY DATA: Please see below. ASSESSMENT/PLAN: Bleeding is either from the small area of granulation tissue (which was cauterized in ER today), a resolving cuff hematoma, or from atrophic changes of vaginal tissue. No acute pathology. No vaginal cuff dehiscence or fistulization appreciated. No evidence of pelvic / vaginal infection. Abdomi nal exam non-acute. Continue with expectant management and outpatient clinical follow up as necessary. Vital Signs/I&O Vital Signs Date Time Temp Pulse Resp B/P (MAP) Pulse Ox O2 Delivery O2 Flow Rate FiO2 01/23/21 20:10 97.7 91 16 129/88 (102) 97 Room Air Laboratory Data Labs 24H Laboratory Tests 2 01/23/21 19:19: Immature Granulocyte % (Auto) 0.4, Neutrophils (%) (Auto) 57.2, Lymphocytes (%) (Auto) 30.0, Monocytes (%) (Auto) 5.5, Eosinophils (%) (Auto) 6.3H, Basophils (%) (Auto) 0.6, Neutrophils # (Auto) 5.9, Lymphocytes # (Auto) 3.1, Monocytes # (Auto) 0.6, Eosinophils # (Auto) 0.7H, Basophils # (Auto) 0.1, Nucleated Red Blood Cells % (auto) 0.0 01/23/21 19:20: Anion Gap 7L, Glomerular Filtration Rate > 60.0, Calcium Level 9.2, Total Bilirubin 0.1L, Aspartate Amino Transf (AST/SGOT) 12, Alanine Aminotransferase (ALT/SGPT) 22, Alkaline Phosphatase 87, Total Protein 7.5, Albumin 3.7, Albumin/Globulin Ratio 1.0L CBC/BMP Laboratory Tests 01/23/21 19:19 01/23/21 19:20 Allergies Coded Allergies: bee venom protein (honey bee) (Verified Allergy, Unknown, throat swelling, 10/09/20) shellfish derived (Verified Allergy, Unknown, throat swelling, 10/09/20) azithromycin (Verified Adverse Reaction, Unknown, GI upset, 10/09/20) Home Medications Scheduled Fluoxetine Hcl (Fluoxetine HCl) 20 Mg Capsule, 40 DAILY, (Reported) Riboflavin (Vitamin B2) (Vitamin B-2) 100 Mg Tab, 400 MG PO DAILY, (Reported) Zonisamide (Zonisamide) 50 Mg Capsule, QHS, (Reported) Zonisamide (Zonisamide) 25 Mg Capsule, 50 MG PO QAM, (Reported) Scheduled PRN Ibuprofen (Ibuprofen) 400 Mg Tab, 800 MG PO Q8HP PRN for PAIN SCALE 6-10, (Reported) Oxycodone HCl/Acetaminophen (Oxycodone-Acetaminophen 5-325) 1 Each Tablet, 1-2 TAB PO Q6HP PRN for pain for 7 Days, #30 Miscellaneous Medications Estradiol (Estradiol) 1 Mg Tablet, (Reported) MAURY PRO DO Jan 24, 2021 06:46
== END 2021-01-23 20:26 | disposition home or self-care (01) ==
LOC: M ED 17:15
DX: N93.9 Abnormal uterine and vaginal bleeding, unspecified (principal); R51.9 Headache, unspecified; Z88.0 Allergy status to penicillin; Z91.018 Allergy to other foods; Z91.030 Bee allergy status

== ENCOUNTER → 2021-05-07 | Outpatient (CLI) | payer BC ==
[~2021-05-07] MED LIST changes: +ESTR1TAB
--- NOTE | 2021-05-07 17:01 | REP ---
INDICATION: PAIN IN RIGHT KNEE. COMPARISON: None. TECHNIQUE: Multiple sequences obtained in the axial, coronal and sagittal planes. FINDINGS: The right tibia and fibula demonstrate normal bone marrow signal. There is no bone marrow edema or occult fracture. No definite bone lesion is seen. The soft tissues of the lower leg demonstrate no abnormal signal. There is no evidence of muscle or tendon tear. No fluid collection is seen. There is no significant soft tissue edema. There is a small joint effusion at the knee with a very thin Joe's cyst in the medial popliteal fossa. This measures about 2.8 cm in craniocaudal dimension and about 7 mm in maximum thickness. IMPRESSION: Small joint effusion of the knee. Thin Joe's cyst. Otherwise negative MRI right lower leg. <Electronically signed by Regino Vásquez > 05/07/21 [id number]
== END ==
LOC: M PLARAD 15:09
PROVIDERS: ATTEND Physician Assistant
DX: M25.561 Pain in right knee (principal); M25.461 Effusion, right knee; M71.21 Synovial cyst of popliteal space [Baker], right knee

== ENCOUNTER → 2021-07-31 | Outpatient (CLI) | payer BC ==
[~2021-07-31] MED LIST changes: +FAMO10TA50 PO; -FAMO1TAB25 PO
[2021-07-31 09:53] LABS: BASO # 0.1 10^3/uL (0.0-0.2); BASO % 0.6 % (0.0-1.0); EOS # 0.5 10^3/uL (0.0-0.5); EOS % 6.5 % (0.0-3.0); HEMATOCRIT 41.1 % (36.0-47.0); HEMOGLOBIN 13.6 g/dl (12.0-15.5); LYMPH # 2.5 10^3/uL (1.5-5.0); MEAN CORPUSCULAR HEMOGLOBIN 31.9 pg (27.0-33.0); MEAN CORPUSCULAR HGB CONC 33.1 g/dl (32.0-36.5); MEAN CORPUSCULAR VOLUME 96.3 fl (80.0-96.0); MONO # 0.5 10^3/uL (0.0-0.8); MONO % 5.6 % (2.0-8.0); NEUTROPHILS # 4.7 10^3/uL (1.5-8.5); NEUTROPHILS % 56.9 % (36.0-66.0); PLATELET COUNT, AUTOMATED 374 10^3/uL (150-450); RED BLOOD COUNT 4.27 10^6/uL (4.00-5.40); WHITE BLOOD COUNT 8.2 10^3/uL (4.0-10.0)
[2021-07-31 10:16] LABS: ALBUMIN 3.5 GM/DL (3.2-5.2); ALT/SGPT 27 U/L (12-78); BILIRUBIN,TOTAL 0.2 MG/DL (0.2-1.0); BLOOD UREA NITROGEN 13 MG/DL (7-18); CARBON DIOXIDE LEVEL 28 MEQ/L (21-32); CHLORIDE LEVEL 105 MEQ/L (98-107); CREATININE FOR GFR 0.73 MG/DL (0.55-1.30); GLOMERULAR FILTRATION RATE > 60.0 (>60); GLUCOSE, FASTING 70 MG/DL (70-100); POTASSIUM SERUM 4.5 MEQ/L (3.5-5.1); RHEUMATOID FACTOR QUANT < 10.0 IU/ML (<15.0); SODIUM LEVEL 138 MEQ/L (136-145); TOTAL PROTEIN 7.3 GM/DL (6.4-8.2)
[2021-07-31 10:40] LABS: ERYTHROCYTE SEDIMENTATION RATE 10 mm/hr (0-20)
[2021-08-01 14:08] LABS: ANTINUCLEAR ANTIBODIES DIRECT Negative (Negative)
== END ==
LOC: M LAB 08:15
PROVIDERS: ATTEND Psychiatry & Neurology Neurology
DX: R51.9 Headache, unspecified (principal)

== ENCOUNTER → 2021-08-21 | Outpatient (REF) | payer BC ==
[2021-08-21 18:01] LABS: APPEARANCE, URINE CLOUDY (CLEAR); BACTERIA, URINE AUTO NEGATIVE (NEGATIVE); BILIRUBIN, URINE AUTO NEGATIVE (NEGATIVE); BLOOD, URINE BLOOD 3+ (NEGATIVE); COLOR, URINE RED (YELLOW); GLUCOSE, URINE (UA) AUTO NEGATIVE (NEGATIVE); KETONE, URINE AUTO NEGATIVE (NEGATIVE); LEUKOCYTE ESTERASE, URINE AUTO 2+ (NEGATIVE); NITRITE, URINE AUTO NEGATIVE (NEGATIVE); PROTEIN, URINE AUTO 2+ mg/dL (NEGATIVE); RBC, URINE AUTO TNTC /HPF (0-3); SPECIFIC GRAVITY URINE AUTO 1.011 (1.002-1.035); SQUAMOUS EPITHELIAL CELL UR AU 0 /HPF (0-6); UROBILINOGEN, URINE AUTO 0.2 mg/dL (0.0-2.0); WBC, URINE AUTO TNTC /HPF (0-3)
== END ==
LOC: M SFHCWAGY 16:56
PROVIDERS: ATTEND Specialist
DX: N39.0 Urinary tract infection, site not specified (principal)

== ENCOUNTER → 2021-10-22 | Outpatient (CLI) | payer BC ==
--- NOTE | 2021-10-22 11:51 | REP ---
INDICATION: ABDOMINAL PAIN COMPARISON: None TECHNIQUE: Real time B-mode vasquez scale and color ultrasound examination using curved array transducer with Doppler evaluation. FINDINGS: Bilateral kidneys are normal in contour, size, echogenicity and reniform shape. No perinephric fluid collections are identified. Right kidney measures 11.8 x 4.8 x 5.9 cm (RI 0.53) without hydronephrosis, nephrolithiasis, cystic or renal mass lesion. Left kidney measures 12.5 x 6.3 x 6.4 cm (RI 0.59) with suggestions of renal fullness/mild hydronephrosis. No nephrolithiasis, cystic or renal mass lesion. Bladder is normal in appearance without wall thickening and demonstrates appropriate bilateral ureteral jets. IMPRESSION: 1. Questionable left renal fullness/mild hydronephrosis. 2. Otherwise normal renal ultrasound. <Electronically signed by Camacho Lindsay > 10/22/21 1428
== END ==
LOC: M WHC 10:56
PROVIDERS: ATTEND Physician Assistant
DX: R10.9 Unspecified abdominal pain (principal)

== ENCOUNTER → 2021-11-20 | Outpatient (REF) | payer BC ==
[2021-11-20 13:36] LABS: APPEARANCE, URINE CLOUDY (CLEAR); BACTERIA, URINE AUTO NEGATIVE (NEGATIVE); BILIRUBIN, URINE AUTO NEGATIVE (NEGATIVE); BLOOD, URINE BLOOD 1+ (NEGATIVE); COLOR, URINE YELLOW (YELLOW); GLUCOSE, URINE (UA) AUTO NEGATIVE (NEGATIVE); KETONE, URINE AUTO NEGATIVE (NEGATIVE); LEUKOCYTE ESTERASE, URINE AUTO NEGATIVE (NEGATIVE); NITRITE, URINE AUTO NEGATIVE (NEGATIVE); PROTEIN, URINE AUTO NEGATIVE (NEGATIVE); RBC, URINE AUTO 0 /HPF (0-3); SPECIFIC GRAVITY URINE AUTO 1.005 (1.002-1.035); SQUAMOUS EPITHELIAL CELL UR AU 4 /HPF (0-6); UROBILINOGEN, URINE AUTO 0.2 mg/dL (0.0-2.0); WBC, URINE AUTO 0 /HPF (0-3)
== END ==
LOC: M SMT 12:47
PROVIDERS: ATTEND Nurse Practitioner Women's Health
DX: R30.0 Dysuria (principal)

== ENCOUNTER → 2021-11-24 | Outpatient (CLI) | payer BC | LOC: M RAD 09:54 | PROVIDERS: ATTEND Surgery | DX: M79.605 Pain in left leg (principal) ==

== ENCOUNTER → 2021-11-26 | Outpatient (CLI) | payer BC ==
[2021-11-26 11:12] LABS: BLOOD UREA NITROGEN 17 MG/DL (7-18); CALCIUM LEVEL 8.8 MG/DL (8.5-10.1); CARBON DIOXIDE LEVEL 29 MEQ/L (21-32); CHLORIDE LEVEL 107 MEQ/L (98-107); CREATININE FOR GFR 0.78 MG/DL (0.55-1.30); GLOMERULAR FILTRATION RATE > 60.0 (>60); GLUCOSE, FASTING 85 MG/DL (70-100); SODIUM LEVEL 139 MEQ/L (136-145)
--- NOTE | 2021-11-26 11:31 | REP ---
INDICATION: UNSPECIFIED HYDRONEPHROSIS. COMPARISON: Multiple the latest 01/27/2020 also without contrast TECHNIQUE: Standard helical technique without contrast FINDINGS: In the right lung base there is a new 2 x 1.5 x 1.4 cm sized nodular density with indistinct margins. The lung bases are otherwise clear and unchanged. The liver, gallbladder, spleen, pancreas, adrenal glands, and kidneys are essentially unchanged. There is no significant change in appearance of the abdominal aorta or para-regions. There is no significant change in appearance of the bowel loops or the mesenteries. In the left hemipelvis there is an oval-shaped 7.8 x 5.1 x 5.5 cm sized low-density structure seemingly arising from the left ovary. The patient is status post hysterectomy since the last exam, however, I have not been given indication as to whether not the patient is status post oophorectomy as well. There is no evidence of free fluid or free air. Bone window technique throughout the examination shows the osseous structures to be within normal limits. IMPRESSION: 1. There is a new right lung base nodule, as described above, possibly representing round atelectasis. Follow-up with contrast CT examination of the chest is recommended. 2. Oval-shaped left andrew pelvic mass as described above. Exact etiology uncertain. Depending on the details of the previous hysterectomy the finding could potentially represent hydrosalpinx. Contrast-enhanced CT examination of the abdomen and pelvis is recommended using both oral and intravenous contrast agents. 3. Other findings as described above. <Electronically signed by Rahul Hayes > 11/26/21 1128
== END ==
LOC: M RAD 09:56
PROVIDERS: ATTEND Nurse Practitioner Women's Health
DX: R91.8 Other nonspecific abnormal finding of lung field (principal); N13.30 Unspecified hydronephrosis

== ENCOUNTER → 2021-12-17 | Outpatient (CLI) | payer BC | LOC: M RAD 09:42 | PROVIDERS: ATTEND Specialist | DX: R93.89 Abnormal findings on diagnostic imaging of other specified body structures (principal); R19.00 Intra-abdominal and pelvic swelling, mass and lump, unspecified site ==

== ENCOUNTER → 2022-01-02 | Outpatient (CLI) | payer BC ==
[2022-01-02 11:35] LABS: ESTRADIOL 79.3 PG/ML; FOLLICLE STIMULATING HORMONE 16.9 mIU/mL; LUTEINIZING HORMONE 9.1 mIU/mL; PROGESTERONE 0.21 NG/ML
[2022-01-03 17:09] LABS: TESTOSTERONE FREE (DIRECT) 4.3 pg/mL (0.0-4.2)
== END ==
LOC: M LAB 08:17
PROVIDERS: ATTEND Obstetrics & Gynecology
DX: E34.9 Endocrine disorder, unspecified (principal); F52.0 Hypoactive sexual desire disorder; N95.1 Menopausal and female climacteric states

== ENCOUNTER → 2022-01-30 | Outpatient (CLI) | payer BC | LOC: M WHC 06:54 | PROVIDERS: ATTEND Specialist | DX: R19.00 Intra-abdominal and pelvic swelling, mass and lump, unspecified site (principal) ==

== ENCOUNTER → 2022-03-03 | Outpatient (CLI) | payer BC ==
[2022-03-03 09:55] LABS: ESTRADIOL 73.9 PG/ML; FOLLICLE STIMULATING HORMONE 14.5 mIU/mL; LUTEINIZING HORMONE 8.1 mIU/mL; PROGESTERONE 0.32 NG/ML
[2022-03-04 18:11] LABS: TESTOSTERONE FREE (DIRECT) 2.3 pg/mL (0.0-4.2)
== END ==
LOC: M LAB 08:15
PROVIDERS: ATTEND Obstetrics & Gynecology
DX: E34.9 Endocrine disorder, unspecified (principal)

== ENCOUNTER → 2022-03-12 | Outpatient (REF) | payer BC | LOC: M LAB REF 11:54 | PROVIDERS: ATTEND Physician Assistant Medical | DX: J02.9 Acute pharyngitis, unspecified (principal) ==

== ENCOUNTER → 2022-04-01 | Outpatient (CLI) | payer BC ==
[~2022-04-01] MED LIST changes: +FLUO40CA PO
== END ==
LOC: M LABSMTC 10:02
PROVIDERS: ATTEND Anesthesiology
DX: Z01.818 Encounter for other preprocedural examination (principal); Z11.52 Encounter for screening for COVID-19

== ENCOUNTER 2022-04-06 06:59 | Day surgery (SDC) | payer BC ==
[~2022-04-06] VITALS: Ht 170.2 cm; Wt 98.9 kg
[~2022-04-06 06:59] MED LIST changes: +LR 1,000 ML IV ONE
[2022-04-06] MEDS ORDERED: HYDROmorphone HCL 2MG/ML 1ML VIAL As Ordered ONE (07:07)
[2022-04-06] MEDS ORDERED: fentaNYL 100 MCG/2 ML INJECTION As Ordered ONE (07:07)
[2022-04-06] MEDS ORDERED: MIDAZOLAM INJ 2MG/2ML VIAL (J2250 PER 1MG) As Ordered ONE (07:07)
[2022-04-06] MEDS ORDERED: ACETAMINOPHEN 1000MG 100ML IV BTL (OFIRMEV) (J0131 PER 10MG) As Ordered ONE (07:08)
[2022-04-06] MEDS ORDERED: KETOROLAC 60MG 2ML VIAL As Ordered ONE (07:08)
[2022-04-06] MEDS ORDERED: ONDANSETRON 4MG/2ML VIAL As Ordered ONE ×2 (07:08→11:20)
[2022-04-06] MEDS ORDERED: dexameTHASONE 4 MG/ML 1ML VIAL (J1100 PER 1MG) As Ordered ONE ×2 (07:08→07:19)
[2022-04-06] MEDS ORDERED: LIDOCAINE 2% 100MG/5ML SDV (FOR ANES.) As Ordered ONE (07:08)
[2022-04-06] MEDS ORDERED: ROCURONIUM BROMIDE 50 MG/5 ML VIAL As Ordered ONE (07:08)
[2022-04-06] MEDS ORDERED: propofoL 200 MG/20 ML VIAL As Ordered ONE (07:10)
[2022-04-06] MEDS ORDERED: BUPIVACAINE HCL 0.25% 30ML VIAL As Ordered ONE (07:17)
[2022-04-06 07:37] LABS: HEMATOCRIT 42.3 % (36.0-47.0); HEMOGLOBIN 13.9 g/dl (12.0-15.5); MEAN CORPUSCULAR HEMOGLOBIN 31.2 pg (27.0-33.0); MEAN CORPUSCULAR HGB CONC 32.9 g/dl (32.0-36.5); MEAN CORPUSCULAR VOLUME 94.8 fl (80.0-96.0); PLATELET COUNT, AUTOMATED 366 10^3/uL (150-450); RED BLOOD COUNT 4.46 10^6/uL (4.00-5.40); WHITE BLOOD COUNT 9.2 10^3/uL (4.0-10.0)
[2022-04-06] MEDS ORDERED: fentaNYL 250 MCG/5 ML INJECTION As Ordered ONE (09:22)
[2022-04-06] MEDS ORDERED: SUGAMMADEX SODIUM 500 MG/5 ML VIAL (BRIDION) As Ordered ONE (09:54)
[2022-04-06] MEDS: oxyCODONE 5MG TAB PO PRN ×2 (11:45→12:20)
[2022-04-06] MEDS ORDERED: oxyCODONE 5MG TAB As Ordered ONE (11:49)
[2022-04-06] MEDS ORDERED: LR 1,000 ML IV SCH ×2 (12:00→12:05)
[2022-04-06] MEDS ORDERED: fentaNYL 100 MCG/2 ML INJECTION IV PRN (12:00)
[2022-04-06] MEDS ORDERED: ONDANSETRON 4MG/2ML VIAL IV PRN (12:00)
[2022-04-06] MEDS ORDERED: HYDROMORPHONE HCL 0.5 MG/ 0.5 ML SYRINGE (J1170 PER 1) IV PRN (12:00)
[2022-04-06] MEDS ORDERED: PERCOCET 5MG/325MG TAB PO PRN (12:10)
[2022-04-06] MEDS ORDERED: LACRILUBE (AKWA TEARS) OPHTH OINT 3.5 GM As Ordered ONE (12:13)
[2022-04-06] MEDS ORDERED: IBUP-1022 PO (12:18)
[2022-04-06] MEDS ORDERED: OXYC1TAB23 PO (12:19)
[2022-04-06] MEDS ORDERED: METOCLOPRAMIDE INJ 10MG/2ML VIAL (J2765 PER 1) IV ONE (13:30)
[2022-04-06] MEDS ORDERED: diphenhydrAMINE 50MG/ML VIAL (J1200) IV PRN (13:30)
[2022-04-06 15:45] VITALS: BP 117/73
== END 2022-04-06 15:50 | disposition home or self-care (01) ==
LOC: M SDC 06:59
PROVIDERS: ATTEND Specialist
DX: N80.1 Endometriosis of ovary (principal); N99.83 Residual ovary syndrome; N73.6 Female pelvic peritoneal adhesions (postinfective); Z90.722 Acquired absence of ovaries, bilateral; N80.3 Endometriosis of pelvic peritoneum; D69.3 Immune thrombocytopenic purpura; F41.1 Generalized anxiety disorder; J30.1 Allergic rhinitis due to pollen; G43.909 Migraine, unspecified, not intractable, without status migrainosus; G93.2 Benign intracranial hypertension; Z88.1 Allergy status to other antibiotic agents; Z91.013 Allergy to seafood; Z91.030 Bee allergy status; Z79.899 Other long term (current) drug therapy
CPT/HCPCS: 36415; 58661; 58662; 85027; 86850; 86900; 86901; 88305; J0131; J1100; J1170; J1885; J2250; J2405; J2765; J3010; S2900

== ENCOUNTER → 2022-04-24 | Outpatient (CLI) | payer BC ==
[~2022-04-24] MED LIST changes: +ISOVUE-370 76% 100ML VIAL As Ordered ONE; -LR 1,000 ML IV ONE
== END ==
LOC: M RAD 09:35
PROVIDERS: ATTEND Physician Assistant
DX: R91.1 Solitary pulmonary nodule (principal)
CPT/HCPCS: 71260; Q9967

== ENCOUNTER → 2022-05-04 | Outpatient (CLI) | payer BC ==
[~2022-05-04] MED LIST changes: -ISOVUE-370 76% 100ML VIAL As Ordered ONE
== END ==
LOC: M PLARAD 08:22
PROVIDERS: ATTEND Physician Assistant
DX: R91.1 Solitary pulmonary nodule (principal)
CPT/HCPCS: 78815; A9552

== ENCOUNTER → 2022-05-06 | Outpatient (REF) | payer BC ==
[2022-05-06 17:13] LABS: INR 1.14
== END ==
LOC: M SFHCADAM 13:59
PROVIDERS: ATTEND Physician Assistant
DX: R91.1 Solitary pulmonary nodule (principal)

== ENCOUNTER → 2022-05-13 | Outpatient (CLI) | payer BC ==
[~2022-05-13] MED LIST changes: +HOME MED LIST COMPLETE! XX SCH; +LIDOCAINE 1% MDV 20ML VIAL As Ordered ONE
[2022-05-13 16:00] VITALS: BP 114/71
== END ==
LOC: M IRPRO 11:37
PROVIDERS: ATTEND Physician Assistant
DX: R91.1 Solitary pulmonary nodule (principal); D38.1 Neoplasm of uncertain behavior of trachea, bronchus and lung

== ENCOUNTER → 2022-09-07 | Outpatient (CLI) | payer BC ==
[~2022-09-07] MED LIST changes: -HOME MED LIST COMPLETE! XX SCH; -LIDOCAINE 1% MDV 20ML VIAL As Ordered ONE
== END ==
LOC: M LAB 10:23
PROVIDERS: ATTEND Allergy & Immunology Allergy
DX: T63.441A Toxic effect of venom of bees, accidental (unintentional), initial encounter (principal)

== ENCOUNTER 2023-05-19 19:09 | Emergency (ER) | payer BC ==
[~2023-05-19] VITALS: Ht 170.2 cm; Wt 79.1 kg
[2023-05-19 19:10] VITALS: TEMP 97.4; O2SAT 100
[2023-05-19] MEDS ORDERED: PROZ40CA PO (19:14)
[2023-05-19 20:03] LABS: BASO % 0.4 % (0.0-1.0); EOS # 0.4 10^3/uL (0.0-0.5); EOS % 3.5 % (0.0-3.0); HEMATOCRIT 39.7 % (36.0-47.0); HEMOGLOBIN 13.6 g/dl (12.0-15.5); LYMPH # 2.2 10^3/uL (1.5-5.0); LYMPH % 22.4 % (24.0-44.0); MEAN CORPUSCULAR HEMOGLOBIN 32.5 pg (27.0-33.0); MEAN CORPUSCULAR HGB CONC 34.3 g/dl (32.0-36.5); MEAN CORPUSCULAR VOLUME 94.7 fl (80.0-96.0); MONO # 0.6 10^3/uL (0.0-0.8); MONO % 6.1 % (2.0-8.0); NEUTROPHILS # 6.7 10^3/uL (1.5-8.5); NEUTROPHILS % 67.2 % (36.0-66.0); PLATELET COUNT, AUTOMATED 306 10^3/uL (150-450); RED BLOOD COUNT 4.19 10^6/uL (4.00-5.40)
[2023-05-19 20:36] LABS: LIPASE 25 U/L (12-53)
[2023-05-19 20:54] LABS: ALBUMIN 3.4 G/DL (3.2-5.2); ALKALINE PHOSPHATASE 60 U/L (46-116); ALT/SGPT 16 U/L (7.0-40); AST/SGOT 14 U/L (<34); BILIRUBIN,DIRECT 0.1 MG/DL (<0.4); BILIRUBIN,TOTAL 0.4 MG/DL (0.3-1.2); BLOOD UREA NITROGEN 23 MG/DL (9-23); CALCIUM LEVEL 8.9 MG/DL (8.5-10.1); CARBON DIOXIDE LEVEL 28 MMOL/L (20-31); CHLORIDE LEVEL 104 MMOL/L (98-107); CREATININE FOR GFR 0.93 MG/DL (0.55-1.30); GLOMERULAR FILTRATION RATE > 60.0 (>60); GLUCOSE, FASTING 115 MG/DL (60-100); POTASSIUM SERUM 4.3 MMOL/L (3.5-5.1); SODIUM LEVEL 138 MMOL/L (136-145); TOTAL PROTEIN 6.8 G/DL (5.7-8.2)
[2023-05-19] MEDS ORDERED: KETOROLAC 30 MG/ML 1ML VIAL IV ONE (22:35)
[2023-05-19] MEDS ORDERED: ONDANSETRON 4MG 2ML VIAL IV ONE (22:35)
[2023-05-19] MEDS ORDERED: MORPHINE 4 MG/ML 1ML VIAL IV ONE (23:25)
[2023-05-20] MEDS ORDERED: MORPHINE 4 MG/ML 1ML VIAL IV ONE (00:15)
[2023-05-20] MEDS ORDERED: OXYCODONE/APAP 5MG/325MG(HOME DOSE PACK) PO ONE (01:10)
[2023-05-20] MEDS ORDERED: PERC5TAB12 PO (01:12)
[2023-05-20 01:27] VITALS: BP 118/69
== END 2023-05-20 01:30 | disposition home or self-care (01) ==
LOC: M ED 19:09
DX: R10.30 Lower abdominal pain, unspecified (principal); R51.9 Headache, unspecified; G93.2 Benign intracranial hypertension; N80.9 Endometriosis, unspecified; Z88.1 Allergy status to other antibiotic agents; Z91.030 Bee allergy status; Z91.013 Allergy to seafood; Z79.899 Other long term (current) drug therapy
CPT/HCPCS: 76830; 76856; 80048; 80076; 81001; 83690; 85025; 93976; 96374; 96375; 96376; 99284; J1885; J2405

== ENCOUNTER 2023-06-17 06:23 | Observation (INO) | payer BC ==
[~2023-06-17] VITALS: Ht 170.2 cm; Wt 78.4 kg
[~2023-06-17 06:23] MED LIST changes: +LR 1,000 ML IV SCH; +PERC5TAB12 PO; +PROZ40CA PO; +VITMTA PO
[2023-06-17] MEDS ORDERED: LR 1,000 ML IV SCH ×2 (06:55→11:05)
[2023-06-17 07:11] LABS: HEMATOCRIT 40.4 % (36.0-47.0); HEMOGLOBIN 13.8 g/dl (12.0-15.5); MEAN CORPUSCULAR HEMOGLOBIN 32.6 pg (27.0-33.0); MEAN CORPUSCULAR HGB CONC 34.2 g/dl (32.0-36.5); MEAN CORPUSCULAR VOLUME 95.5 fl (80.0-96.0); PLATELET COUNT, AUTOMATED 288 10^3/uL (150-450); RED BLOOD COUNT 4.23 10^6/uL (4.00-5.40); WHITE BLOOD COUNT 6.1 10^3/uL (4.0-10.0)
[2023-06-17] MEDS ORDERED: INDOCYANINE GREEN 25MG VIAL (IC-GREEN) As Ordered ONE (07:16)
[2023-06-17] MEDS ORDERED: ROCURONIUM BROMIDE 50MG/5ML VIAL As Ordered ONE ×2 (07:17→08:52)
[2023-06-17] MEDS ORDERED: fentaNYL 100 MCG/2 ML INJECTION As Ordered ONE (07:17)
[2023-06-17] MEDS ORDERED: propofoL 200 MG/20 ML VIAL As Ordered ONE (07:17)
[2023-06-17] MEDS ORDERED: LIDOCAINE 2% 100MG/5ML SDV (FOR ANES.) As Ordered ONE (07:17)
[2023-06-17] MEDS ORDERED: MIDAZOLAM INJ 2MG/2ML VIAL As Ordered ONE (07:18)
[2023-06-17] MEDS ORDERED: SCOPOLAMINE 1MG TRANSDERMAL PATCH As Ordered ONE (07:25)
[2023-06-17] MEDS ORDERED: OXYC1TAB23 PO (07:49)
[2023-06-17] MEDS ORDERED: ceFAZolin 2 GM/D5W 50 ML IV BAG As Ordered ONE (07:50)
[2023-06-17] MEDS ORDERED: IBUP-1022 PO (07:50)
[2023-06-17] MEDS ORDERED: ePHEDrine SULFATE 25 MG/5 ML(5MG/ML) SYRINGE As Ordered ONE (08:11)
[2023-06-17] MEDS ORDERED: PHENYLephrine 500MCG 5ML (100MCG/ML) SYRINGE As Ordered ONE (08:14)
[2023-06-17] MEDS ORDERED: METOCLOPRAMIDE INJ 10MG/2ML VIAL As Ordered ONE (08:20)
[2023-06-17] MEDS ORDERED: SUGAMMADEX SODIUM 500 MG/5 ML VIAL (BRIDION) As Ordered ONE (08:20)
[2023-06-17] MEDS ORDERED: ONDANSETRON 4MG 2ML VIAL As Ordered ONE (08:20)
[2023-06-17] MEDS ORDERED: HYDROmorphone HCL 2MG/ML 1ML VIAL As Ordered ONE (08:22)
[2023-06-17] MEDS ORDERED: ONDANSETRON 4MG 2ML VIAL IV PRN (10:55)
[2023-06-17] MEDS ORDERED: PERCOCET 5MG/325MG TAB PO PRN ×2 (11:05→13:05)
[2023-06-17] MEDS: fentaNYL 100 MCG/2 ML INJECTION IV PRN ×4 (11:23→11:43)
[2023-06-17] MEDS: HYDROMORPHONE HCL 0.5 MG/ 0.5 ML SYRINGE IV PRN ×4 (11:54→12:20)
[2023-06-17] MEDS ORDERED: oxyCODONE 5MG TAB PO ONE (13:00)
[2023-06-17] MEDS ORDERED: KETOROLAC 30 MG/ML 1ML VIAL IV SCH (14:00)
[2023-06-17 15:42] VITALS: BP 113/68; TEMP 98; O2SAT 97
== END 2023-06-17 15:28 | disposition home or self-care (01) ==
LOC: M SDC 06:23 → M RR INP 06:24
PROVIDERS: ADMIT Specialist; ATTEND Specialist
DX: N80.00 Endometriosis of the uterus, unspecified (principal); N73.6 Female pelvic peritoneal adhesions (postinfective); R10.2 Pelvic and perineal pain; D69.3 Immune thrombocytopenic purpura; M54.9 Dorsalgia, unspecified; F41.9 Anxiety disorder, unspecified; R51.9 Headache, unspecified; G93.2 Benign intracranial hypertension; Z88.1 Allergy status to other antibiotic agents; Z91.048 Other nonmedicinal substance allergy status; Z91.013 Allergy to seafood; Z91.030 Bee allergy status; Z79.899 Other long term (current) drug therapy; Z79.3 Long term (current) use of hormonal contraceptives
CPT/HCPCS: 36415; 44238; 58662; 85027; 86850; 86900; 86901; J0665; J0690; J1100; J1170; J2250; J2371; J2405; J2765; J3010; S2900

== ENCOUNTER → 2023-09-28 | Outpatient (REF) | payer BC ==
[~2023-09-28] MED LIST changes: -LR 1,000 ML IV SCH
== END ==
LOC: M LAB REF 16:23
PROVIDERS: ATTEND Physician Assistant
DX: Z20.828 Contact with and (suspected) exposure to other viral communicable diseases (principal); R50.9 Fever, unspecified; J06.9 Acute upper respiratory infection, unspecified

== ENCOUNTER → 2023-10-11 | Outpatient (REF) | payer BC | LOC: M SFHCDERM 17:40 | PROVIDERS: ATTEND Physician Assistant | DX: L57.8 Other skin changes due to chronic exposure to nonionizing radiation (principal); D23.39 Other benign neoplasm of skin of other parts of face ==

== ENCOUNTER → 2023-11-04 | Outpatient (CLI) | payer BC ==
[~2023-11-04] MED LIST changes: +ZONI50CA11 PO
[2023-11-04 15:58] LABS: BASO % 0.5 % (0.0-1.0); EOS # 0.5 10^3/uL (0.0-0.5); EOS % 6.1 % (0.0-3.0); HEMATOCRIT 40.4 % (36.0-47.0); HEMOGLOBIN 13.3 g/dl (12.0-15.5); LYMPH # 2.5 10^3/uL (1.5-5.0); LYMPH % 28.9 % (24.0-44.0); MEAN CORPUSCULAR HEMOGLOBIN 31.4 pg (27.0-33.0); MEAN CORPUSCULAR HGB CONC 32.9 g/dl (32.0-36.5); MEAN CORPUSCULAR VOLUME 95.3 fl (80.0-96.0); MONO # 0.5 10^3/uL (0.0-0.8); MONO % 6.1 % (2.0-8.0); NEUTROPHILS # 5.1 10^3/uL (1.5-8.5); NEUTROPHILS % 58.3 % (36.0-66.0); PLATELET COUNT, AUTOMATED 327 10^3/uL (150-450); RED BLOOD COUNT 4.24 10^6/uL (4.00-5.40); WHITE BLOOD COUNT 8.8 10^3/uL (4.0-10.0)
[2023-11-04 16:29] LABS: ALBUMIN 3.7 G/DL (3.2-5.2); ALKALINE PHOSPHATASE 56 U/L (46-116); ALT/SGPT 23 U/L (7.0-40); AST/SGOT 19 U/L (<34); BILIRUBIN,TOTAL 0.3 MG/DL (0.3-1.2); BLOOD UREA NITROGEN 27 MG/DL (9-23); CALCIUM LEVEL 9.3 MG/DL (8.5-10.1); CARBON DIOXIDE LEVEL 28 MMOL/L (20-31); CHLORIDE LEVEL 103 MMOL/L (98-107); CREATININE FOR GFR 0.79 MG/DL (0.55-1.30); GLOMERULAR FILTRATION RATE > 60.0 (>60); GLUCOSE, FASTING 79 MG/DL (60-100); POTASSIUM SERUM 4.4 MMOL/L (3.5-5.1); SODIUM LEVEL 139 MMOL/L (136-145); TOTAL PROTEIN 7.2 G/DL (5.7-8.2)
== END ==
LOC: M PLALAB 14:31
PROVIDERS: ATTEND Student in an Organized Health Care Education/Training Program
DX: Z01.818 Encounter for other preprocedural examination (principal)

== ENCOUNTER 2023-11-09 06:16 | Day surgery (SDC) | payer BC ==
[~2023-11-09] VITALS: Ht 170.2 cm; Wt 87.6 kg
[~2023-11-09 06:16] MED LIST changes: +HEPARIN SOD (PORCINE) 5000UNITS/ML 1ML VIAL/SYRINGE SQ ONE; +ceFAZolin SOD 2 GM in IV 1 EA IV ONE
[2023-11-09] MEDS ORDERED: LR 1,000 ML IV SCH (06:40)
[2023-11-09] MEDS ORDERED: AMIT10TA7 PO (06:47)
[2023-11-09] MEDS ORDERED: EPINEPHrine INJ 1 MG/ML 1ML AMP As Ordered ONE (07:08)
[2023-11-09] MEDS ORDERED: LIDOCAINE 1% MDV 20ML VIAL As Ordered ONE (07:08)
[2023-11-09] MEDS ORDERED: GENTAMICIN SULF 80MG/2ML VIAL As Ordered ONE (07:08)
[2023-11-09] MEDS ORDERED: fentaNYL 250 MCG/5 ML INJECTION As Ordered ONE (07:14)
[2023-11-09] MEDS ORDERED: MIDAZOLAM INJ 2MG/2ML VIAL As Ordered ONE (07:14)
[2023-11-09] MEDS ORDERED: LIDOCAINE 2% 100MG/5ML SDV (FOR ANES.) As Ordered ONE (07:14)
[2023-11-09] MEDS ORDERED: ONDANSETRON 4MG 2ML VIAL As Ordered ONE (07:15)
[2023-11-09] MEDS ORDERED: dexmedeTOMIDine (4MCG/ML)200MCG/50ML BTL (PRECEDEX) As Ordered ONE (07:15)
[2023-11-09] MEDS ORDERED: ROCURONIUM BROMIDE 50MG/5ML VIAL As Ordered ONE (07:15)
[2023-11-09] MEDS ORDERED: propofoL 200 MG/20 ML VIAL As Ordered ONE (07:15)
[2023-11-09] MEDS ORDERED: SCOPOLAMINE 1MG TRANSDERMAL PATCH As Ordered ONE (07:35)
[2023-11-09 07:47] VITALS: BP 118/23; TEMP 97.8; O2SAT 97
== END 2023-11-09 08:10 | disposition home or self-care (01) ==
LOC: M SDC 06:16
PROVIDERS: ATTEND Plastic Surgery Surgery of the Hand
DX: N62 Hypertrophy of breast (principal); Z53.8 Procedure and treatment not carried out for other reasons
CPT/HCPCS: 87635; J2250

== ENCOUNTER 2023-12-28 06:08 | Observation (INO) | payer BC ==
[~2023-12-28] VITALS: Ht 170.2 cm; Wt 91.4 kg
[~2023-12-28 06:08] MED LIST changes: +AMIT10TA7 PO
[2023-12-28] MEDS ORDERED: LR 1,000 ML IV SCH ×2 (06:35→11:55)
[2023-12-28] MEDS ORDERED: GENTAMICIN SULF 80MG/2ML VIAL As Ordered ONE (06:45)
[2023-12-28] MEDS ORDERED: ROCURONIUM BROMIDE 50MG/5ML VIAL As Ordered ONE ×3 (07:25→09:50)
[2023-12-28] MEDS ORDERED: dexmedeTOMIDine (4MCG/ML)200MCG/50ML BTL (PRECEDEX) As Ordered ONE (07:25)
[2023-12-28] MEDS ORDERED: SCOPOLAMINE 1MG TRANSDERMAL PATCH TOP ONE (07:25)
[2023-12-28] MEDS ORDERED: propofoL 200 MG/20 ML VIAL As Ordered ONE (07:25)
[2023-12-28] MEDS ORDERED: LIDOCAINE 2% 100MG/5ML SDV (FOR ANES.) As Ordered ONE (07:25)
[2023-12-28] MEDS ORDERED: ONDANSETRON 4MG 2ML VIAL As Ordered ONE (07:25)
[2023-12-28] MEDS ORDERED: fentaNYL 250 MCG/5 ML INJECTION As Ordered ONE (07:27)
[2023-12-28] MEDS ORDERED: MIDAZOLAM INJ 2MG/2ML VIAL As Ordered ONE (07:28)
[2023-12-28] MEDS ORDERED: LACRILUBE (AKWA TEARS) OPHTH OINT 3.5GM As Ordered ONE (07:54)
[2023-12-28] MEDS ORDERED: ePHEDrine SULFATE 25 MG/5 ML(5MG/ML) SYRINGE As Ordered ONE (08:17)
[2023-12-28] MEDS ORDERED: ACETAMINOPHEN 1000MG 100ML IV BAG As Ordered ONE (08:17)
[2023-12-28] MEDS ORDERED: SUGAMMADEX SODIUM 500 MG/5 ML VIAL (BRIDION) As Ordered ONE (08:54)
[2023-12-28] MEDS ORDERED: METOCLOPRAMIDE INJ 10MG/2ML VIAL As Ordered ONE (08:54)
[2023-12-28] MEDS ORDERED: HYDROmorphone HCL 2MG/ML 1ML VIAL As Ordered ONE (09:52)
[2023-12-28] MEDS ORDERED: ceFAZolin 2 GM/D5W 50 ML IV BAG As Ordered ONE (11:16)
[2023-12-28] MEDS ORDERED: fentaNYL 100 MCG/2 ML INJECTION IV PRN (11:55)
[2023-12-28] MEDS ORDERED: ONDANSETRON 4MG 2ML VIAL IV PRN ×2 (11:55→12:15)
[2023-12-28] MEDS ORDERED: MEPERIDINE 50 MG/ML 1ML VIAL As Ordered ONE (12:10)
[2023-12-28] MEDS ORDERED: PERCOCET 5MG/325MG TAB PO PRN (12:15)
[2023-12-28] MEDS ORDERED: ACETAMINOPHEN TAB 650MG DOSE (2X325MG) PO PRN (12:15)
[2023-12-28] MEDS: HYDROMORPHONE HCL 0.5 MG/ 0.5 ML SYRINGE IV PRN ×2 (12:43→12:50)
[2023-12-28] MEDS: oxyCODONE 5MG TAB PO PRN ×2 (12:43→13:22)
[2023-12-28 14:43] VITALS: BP 123/78; TEMP 97.9; O2SAT 95
[2023-12-28] MEDS: traMADol 50 MG TAB PO PRN ×2 (14:45→21:27)
[2023-12-28] MEDS: LR 1,000 ML IV SCH (14:45)
[2023-12-28] MEDS: ceFAZolin SOD 1 GM in D5W MINI-BAG PLUS 50 ML IV SCH (15:47)
[2023-12-28 15:49] VITALS: BP 128/80; TEMP 97.7; O2SAT 93
[2023-12-28 17:01] VITALS: BP 126/80; TEMP 97.7; O2SAT 94
[2023-12-28 18:00] VITALS: BP 125/80; TEMP 97.7; O2SAT 90
[2023-12-28] MEDS ORDERED: AMITRIPTYLINE 10MG TABLET PO SCH (21:00)
[2023-12-28 22:00] VITALS: BP 106/67; TEMP 97.7; O2SAT 95
[2023-12-29] MEDS: ceFAZolin SOD 1 GM in D5W MINI-BAG PLUS 50 ML IV SCH (00:23)
[2023-12-29] MEDS: LR 1,000 ML IV SCH (01:35)
[2023-12-29 02:00] VITALS: BP 103/68; TEMP 97.6; O2SAT 96
[2023-12-29] MEDS: traMADol 50 MG TAB PO PRN (04:30)
[2023-12-29 06:00] VITALS: BP 120/77; TEMP 97.6; O2SAT 95
[2023-12-29] MEDS ORDERED: PERCOCET PO (09:57)
== END 2023-12-29 12:00 | disposition home or self-care (01) ==
LOC: M SDC 06:08 → M RR INP 06:09 → M MS5PR 14:15
PROVIDERS: ADMIT Plastic Surgery Surgery of the Hand; ATTEND Plastic Surgery Surgery of the Hand
DX: N62 Hypertrophy of breast (principal); M54.6 Pain in thoracic spine; M54.2 Cervicalgia; R56.9 Unspecified convulsions; Z88.1 Allergy status to other antibiotic agents; Z91.048 Other nonmedicinal substance allergy status
CPT/HCPCS: 19318; 88305; 96374; 96376; C9290; J0131; J0665; J0690; J1100; J1170; J1580; J2175; J2250; J2405; J2765; J3010

== ENCOUNTER → 2024-12-09 | Outpatient (REF) | payer OTHER ==
[~2024-12-09] MED LIST changes: +ACET250T18 PO; -ACET250T2 PO; +FLUO-365; -FLUO20CA22; +GABA-1172 PO; -GABA-282 PO; -HEPARIN SOD (PORCINE) 5000UNITS/ML 1ML VIAL/SYRINGE SQ ONE; +PERCOCET PO; -ceFAZolin SOD 2 GM in IV 1 EA IV ONE
[2024-12-09 13:49] LABS: APPEARANCE, URINE MANUAL CLEAR (CLEAR); COLOR, URINE MANUAL ORANGE (YELLOW)
[2024-12-09 13:50] LABS: GLUCOSE, URINE (UA) MANUAL NEGATIVE (NEGATIVE); PROTEIN, URINE MANUAL OBSCURED mg/dL (NEGATIVE)
[2024-12-09 13:51] LABS: BILIRUBIN, URINE MANUAL OBSCURED (NEGATIVE); BLOOD URINE MANUAL NEGATIVE (NEGATIVE); KETONE, URINE MANUAL NEGATIVE (NEGATIVE); LEUKOCYTE ESTERASE, URINE MAN NEGATIVE (NEGATIVE); NITRITE, URINE MANUAL OBSCURED (NEGATIVE); UROBILINOGEN, URINE MANUAL OBSCURED mg/dl (NORMAL)
[2024-12-09 13:56] LABS: BACTERIA, URINE NONE SEEN; CALCIUM OXALATE CRYSTALS,URINE SMALL AMOUNT /hpf; HYALINE CAST, URINE 0-1 /lpf (0-1); MUCUS, URINE SMALL AMOUNT (NEGATIVE); RBC, URINE NONE SEEN /hpf (0-3); SQUAMOUS EPITHELIAL CELL URINE SMALL AMOUNT /hpf (SMALL AMT); WBC, URINE NONE SEEN /hpf (0-3)
== END ==
LOC: M LAB REF 13:35
PROVIDERS: ATTEND Physician Assistant
DX: N39.0 Urinary tract infection, site not specified (principal)

== ENCOUNTER → 2025-01-05 | Outpatient (REF) | payer OTHER ==
[2025-01-05 17:48] LABS: APPEARANCE, URINE MANUAL CLOUDY (CLEAR); COLOR, URINE MANUAL AMBER (YELLOW); LEUKOCYTE ESTERASE, URINE MAN OBSCURED (NEGATIVE); NITRITE, URINE MANUAL OBSCURED (NEGATIVE); PROTEIN, URINE MANUAL OBSCURED mg/dL (NEGATIVE)
[2025-01-05 17:49] LABS: BILIRUBIN, URINE MANUAL OBSCURED (NEGATIVE); BLOOD URINE MANUAL OBSCURED (NEGATIVE); GLUCOSE, URINE (UA) MANUAL OBSCURED mg/dL (NEGATIVE); KETONE, URINE MANUAL OBSCURED mg/dL (NEGATIVE); SPECIFIC GRAVITY,URINE MANUAL 1.024 (1.002-1.035); UROBILINOGEN, URINE MANUAL OBSCURED mg/dl (NORMAL)
[2025-01-05 17:51] LABS: CALCIUM OXALATE CRYSTALS,URINE SMALL AMOUNT /hpf
[2025-01-05 17:52] LABS: RBC, URINE NONE SEEN /hpf (0-3); SQUAMOUS EPITHELIAL CELL URINE LARGE AMOUNT /hpf (SMALL AMT)
[2025-01-05 17:53] LABS: BACTERIA, URINE LARGE AMOUNT; MUCUS, URINE MOD AMOUNT (NEGATIVE)
== END ==
LOC: M LAB REF 16:12
PROVIDERS: ATTEND Physician Assistant
DX: N39.0 Urinary tract infection, site not specified (principal)

== ENCOUNTER → 2025-01-10 | Outpatient (REF) | payer OTHER ==
[2025-01-10 14:01] LABS: BASO # 0.1 10^3/uL (0.0-0.2); BASO % 0.7 % (0.0-1.0); EOS # 0.5 10^3/uL (0.0-0.5); EOS % 6.8 % (0.0-3.0); HEMATOCRIT 43.6 % (36.0-47.0); HEMOGLOBIN 14.6 g/dl (12.0-15.5); LYMPH # 2.3 10^3/uL (1.5-5.0); LYMPH % 29.6 % (24.0-44.0); MEAN CORPUSCULAR HEMOGLOBIN 31.8 pg (27.0-33.0); MEAN CORPUSCULAR HGB CONC 33.5 g/dl (32.0-36.5); MONO # 0.5 10^3/uL (0.0-0.8); NEUTROPHILS # 4.3 10^3/uL (1.5-8.5); NEUTROPHILS % 56.6 % (36.0-66.0); PLATELET COUNT, AUTOMATED 371 10^3/uL (150-450); RED BLOOD COUNT 4.59 10^6/uL (4.00-5.40); WHITE BLOOD COUNT 7.6 10^3/uL (4.0-10.0)
[2025-01-10 14:42] LABS: ALBUMIN 3.9 G/DL (3.2-5.2); ALKALINE PHOSPHATASE 75 U/L (35-104); ALT/SGPT 15 U/L (7.0-40); AST/SGOT 16 U/L (<34); BILIRUBIN,TOTAL 0.3 MG/DL (0.3-1.2); BLOOD UREA NITROGEN 15 MG/DL (9-23); CALCIUM LEVEL 9.7 MG/DL (8.5-10.1); CARBON DIOXIDE LEVEL 26 MMOL/L (20-31); CHLORIDE LEVEL 103 MMOL/L (98-107); CREATININE FOR GFR 0.87 MG/DL (0.55-1.30); GLOMERULAR FILTRATION RATE > 60.0 (>60); GLUCOSE, FASTING 74 MG/DL (60-100); POTASSIUM SERUM 4.6 MMOL/L (3.5-5.1); SODIUM LEVEL 139 MMOL/L (136-145)
[2025-01-10 17:49] LABS: APPEARANCE, URINE TURBID (CLEAR); BACTERIA, URINE AUTO NEGATIVE (NEGATIVE); BILIRUBIN, URINE AUTO NEGATIVE (NEGATIVE); BLOOD, URINE BLOOD NEGATIVE (NEGATIVE); COLOR, URINE AMBER (YELLOW); GLUCOSE, URINE (UA) AUTO NEGATIVE (NEGATIVE); KETONE, URINE AUTO NEGATIVE (NEGATIVE); LEUKOCYTE ESTERASE, URINE AUTO NEGATIVE (NEGATIVE); NITRITE, URINE AUTO NEGATIVE (NEGATIVE); PROTEIN, URINE AUTO NEGATIVE (NEGATIVE); RBC, URINE AUTO 0 /HPF (0-3); SPECIFIC GRAVITY URINE AUTO 1.015 (1.002-1.035); SQUAMOUS EPITHELIAL CELL UR AU 11 /HPF (0-6); UROBILINOGEN, URINE AUTO 0.2 mg/dL (0.0-2.0); WBC, URINE AUTO 0 /HPF (0-3)
== END ==
LOC: M SFHCADAM 10:43
PROVIDERS: ATTEND Physician Assistant
DX: R10.2 Pelvic and perineal pain (principal); N80.9 Endometriosis, unspecified; R35.0 Frequency of micturition

== ENCOUNTER → 2025-01-12 | Outpatient (CLI) | payer OTHER | LOC: M RAD 15:32 | PROVIDERS: ATTEND Physician Assistant | DX: R10.2 Pelvic and perineal pain (principal); N60.99 Unspecified benign mammary dysplasia of unspecified breast; R35.0 Frequency of micturition ==

== ENCOUNTER → 2025-01-15 | Outpatient (CLI) | payer OTHER ==
[~2025-01-15] MED LIST changes: +PROHANCE 279.3MG/ML 15ML VIAL ONE; +PROHANCE 279.3MG/ML 5ML VIAL ONE
== END ==
LOC: M PLAIMG 10:36
PROVIDERS: ATTEND Physician Assistant
DX: N94.89 Other specified conditions associated with female genital organs and menstrual cycle (principal)

== ENCOUNTER 2025-02-05 11:21 | Observation (INO) | payer OTHER ==
[~2025-02-05] VITALS: Ht 170.2 cm; Wt 86.3 kg
[~2025-02-05 11:21] MED LIST changes: +HYDROmorphone HCL 2MG/ML 1ML VIAL As Ordered ONE; +KETOROLAC 60MG 2ML VIAL As Ordered ONE; +LIDOCAINE 2% 100MG/5ML SDV (FOR ANES.) As Ordered ONE; +METOCLOPRAMIDE INJ 10MG/2ML VIAL As Ordered ONE; +MIDAZOLAM INJ 2MG/2ML VIAL As Ordered ONE; +ONDANSETRON 4MG 2ML VIAL As Ordered ONE; -PROHANCE 279.3MG/ML 15ML VIAL ONE; -PROHANCE 279.3MG/ML 5ML VIAL ONE; +ROCURONIUM BROMIDE 50MG/5ML VIAL As Ordered ONE; +SUGAMMADEX SODIUM 500 MG/5 ML VIAL (BRIDION) As Ordered ONE; +fentaNYL 100 MCG/2 ML INJECTION As Ordered ONE; +propofoL 200 MG/20 ML VIAL As Ordered ONE
[2025-02-05] MEDS ORDERED: ACETAMINOPHEN 1000MG/100ML IV BAG As Ordered ONE (11:31)
[2025-02-05 12:04] LABS: HEMATOCRIT 41.9 % (36.0-47.0); HEMOGLOBIN 14.2 g/dl (12.0-15.5); MEAN CORPUSCULAR HEMOGLOBIN 31.6 pg (27.0-33.0); MEAN CORPUSCULAR HGB CONC 33.9 g/dl (32.0-36.5); MEAN CORPUSCULAR VOLUME 93.3 fl (80.0-96.0); PLATELET COUNT, AUTOMATED 369 10^3/uL (150-450); RED BLOOD COUNT 4.49 10^6/uL (4.00-5.40); WHITE BLOOD COUNT 8.7 10^3/uL (4.0-10.0)
[2025-02-05] MEDS: LR 1,000 ML IV SCH ×3 (12:11→20:48)
[2025-02-05] MEDS: SCOPOLAMINE 1MG TRANSDERMAL PATCH As Ordered ONE (14:00)
[2025-02-05] MEDS: ceFAZolin SOD 2 GM in IV 1 EA IV ONE (14:06)
[2025-02-05] MEDS: INDOCYANINE GREEN 25MG VIAL (IC-GREEN) As Ordered ONE (15:12)
[2025-02-05] MEDS ORDERED: fentaNYL 100 MCG/2 ML INJECTION IV PRN (18:35)
[2025-02-05] MEDS: ONDANSETRON 4MG 2ML VIAL IV PRN (18:52)
[2025-02-05] MEDS: oxyCODONE 5MG TAB PO PRN (18:52)
[2025-02-05] MEDS ORDERED: COLA100C5 PO (19:08)
[2025-02-05] MEDS: HYDROMORPHONE HCL 0.5 MG/ 0.5 ML SYRINGE IV PRN (19:09)
[2025-02-05] MEDS ORDERED: KETOROLAC 30 MG/ML 1ML VIAL IV PRN (19:30)
[2025-02-05] MEDS ORDERED: ONDANSETRON 4MG 2ML VIAL IV PRN (19:30)
[2025-02-05 20:02] VITALS: BP 123/79; TEMP 98.1; O2SAT 90
[2025-02-05 20:30] VITALS: BP 122/79; TEMP 98.1; O2SAT 94
[2025-02-05] MEDS: DOCUSATE SODIUM 100MG CAPSULE PO SCH (20:51)
[2025-02-05 21:00] VITALS: BP 115/78; TEMP 98.6; O2SAT 95
[2025-02-05 22:00] VITALS: BP 116/78; TEMP 98.1; O2SAT 96
[2025-02-05 23:00] VITALS: BP 113/76; TEMP 98.4; O2SAT 100
[2025-02-05] MEDS: PERCOCET 5MG/325MG TAB PO PRN (23:03)
[2025-02-06] VITALS: BP 116/76; TEMP 98.1; O2SAT 98
[2025-02-06 01:00] VITALS: BP 108/70; TEMP 98.1; O2SAT 97
[2025-02-06 05:00] VITALS: BP 105/68; TEMP 98.1; O2SAT 98
[2025-02-06 07:13] LABS: BASO % 0.3 % (0.0-1.0); EOS # 0.1 10^3/uL (0.0-0.5); EOS % 0.8 % (0.0-3.0); LYMPH # 2.2 10^3/uL (1.5-5.0); LYMPH % 19.7 % (24.0-44.0); MEAN CORPUSCULAR HGB CONC 33.5 g/dl (32.0-36.5); MEAN CORPUSCULAR VOLUME 95.5 fl (80.0-96.0); MONO # 0.8 10^3/uL (0.0-0.8); MONO % 6.8 % (2.0-8.0); RED BLOOD COUNT 3.56 10^6/uL (4.00-5.40); WHITE BLOOD COUNT 11.1 10^3/uL (4.0-10.0)
[2025-02-06 07:15] LABS: HEMOGLOBIN 11.4 g/dl (12.0-15.5); PLATELET COUNT, AUTOMATED 272 10^3/uL (150-450)
[2025-02-06] MEDS: KETOROLAC 30 MG/ML 1ML VIAL IV PRN (07:52)
[2025-02-06 09:00] VITALS: BP 119/71; TEMP 98.6; O2SAT 97
[2025-02-06 09:47] VITALS: O2SAT 95
== END 2025-02-06 12:30 | disposition home or self-care (01) ==
LOC: M SDC 11:21 → M RR INP 11:22 → M MS5PR 20:08
PROVIDERS: ADMIT Specialist; ATTEND Specialist
DX: N80.122 Deep endometriosis of left ovary (principal); N80.209 Endometriosis of unspecified fallopian tube, unspecified depth; N73.6 Female pelvic peritoneal adhesions (postinfective); K21.9 Gastro-esophageal reflux disease without esophagitis; Z90.710 Acquired absence of both cervix and uterus; Z90.79 Acquired absence of other genital organ(s); Z90.722 Acquired absence of ovaries, bilateral; Z88.1 Allergy status to other antibiotic agents; Z91.048 Other nonmedicinal substance allergy status; Z91.030 Bee allergy status; Z91.013 Allergy to seafood; Z79.899 Other long term (current) drug therapy
CPT/HCPCS: 36415; 45330; 50949; 52332; 58662; 85025; 85027; 86850; 86900; 86901; 88305; 96374; C1769; J0131; J0665; J0690; J1100; J1171; J1885; J2250; J2405; J2765; J3010; Q9968; S2900

== ENCOUNTER → 2025-03-05 | Outpatient (CLI) | payer OTHER ==
[~2025-03-05] MED LIST changes: +COLA100C5 PO; -HYDROmorphone HCL 2MG/ML 1ML VIAL As Ordered ONE; -KETOROLAC 60MG 2ML VIAL As Ordered ONE; -LIDOCAINE 2% 100MG/5ML SDV (FOR ANES.) As Ordered ONE; -METOCLOPRAMIDE INJ 10MG/2ML VIAL As Ordered ONE; -MIDAZOLAM INJ 2MG/2ML VIAL As Ordered ONE; -ONDANSETRON 4MG 2ML VIAL As Ordered ONE; -ROCURONIUM BROMIDE 50MG/5ML VIAL As Ordered ONE; -SUGAMMADEX SODIUM 500 MG/5 ML VIAL (BRIDION) As Ordered ONE; -fentaNYL 100 MCG/2 ML INJECTION As Ordered ONE; -propofoL 200 MG/20 ML VIAL As Ordered ONE
[2025-03-05 17:54] LABS: BASO % 0.3 % (0.0-1.0); EOS # 1.2 10^3/uL (0.0-0.5); EOS % 11.6 % (0.0-3.0); HEMATOCRIT 36.8 % (36.0-47.0); HEMOGLOBIN 12.5 g/dl (12.0-15.5); LYMPH # 2.9 10^3/uL (1.5-5.0); LYMPH % 29.2 % (24.0-44.0); MEAN CORPUSCULAR HEMOGLOBIN 32.3 pg (27.0-33.0); MEAN CORPUSCULAR VOLUME 95.1 fl (80.0-96.0); MONO # 0.7 10^3/uL (0.0-0.8); MONO % 6.6 % (2.0-8.0); NEUTROPHILS # 5.2 10^3/uL (1.5-8.5); NEUTROPHILS % 52.2 % (36.0-66.0); PLATELET COUNT, AUTOMATED 336 10^3/uL (150-450); RED BLOOD COUNT 3.87 10^6/uL (4.00-5.40)
[2025-03-05 17:59] LABS: ALBUMIN 3.7 G/DL (3.2-5.2); ALKALINE PHOSPHATASE 67 U/L (35-104); ALT/SGPT 18 U/L (7.0-40); AST/SGOT 15 U/L (<34); BILIRUBIN,TOTAL 0.3 MG/DL (0.3-1.2); BLOOD UREA NITROGEN 13 MG/DL (9-23); CALCIUM LEVEL 9.1 MG/DL (8.5-10.1); CARBON DIOXIDE LEVEL 28 MMOL/L (20-31); CHLORIDE LEVEL 103 MMOL/L (98-107); CREATININE FOR GFR 0.83 MG/DL (0.55-1.30); GLOMERULAR FILTRATION RATE > 60.0 (>60); GLUCOSE, FASTING 70 MG/DL (60-100); POTASSIUM SERUM 3.9 MMOL/L (3.5-5.1); SODIUM LEVEL 139 MMOL/L (136-145); TOTAL PROTEIN 7.2 G/DL (5.7-8.2)
[2025-03-05 18:01] LABS: FOLLICLE STIMULATING HORMONE 20.3 mIU/ML
[2025-03-05 18:02] LABS: LUTEINIZING HORMONE 22.1 mIU/ML
== END ==
LOC: M PLALAB 15:21
PROVIDERS: ATTEND Specialist
DX: R10.2 Pelvic and perineal pain (principal)

== ENCOUNTER → 2025-06-07 | Outpatient (CLI) | payer OTHER ==
[~2025-06-07] MED LIST changes: +AMIT10TA11 PO; -AMIT10TA7 PO; +TOPI-256 PO; -TOPI25TA10 PO
== END ==
LOC: M RAD 09:26
PROVIDERS: ATTEND Physician Assistant
DX: M25.561 Pain in right knee (principal)

== ENCOUNTER → 2025-09-11 | Outpatient (REF) | payer OTHER ==
[~2025-09-11] MED LIST changes: -IBUP-1022 PO; +IBUP600T42 PO
[2025-09-11 17:55] LABS: ALT/SGPT 18.0 U/L (7.0-40); AST/SGOT 21.0 U/L (<34); CALCIUM LEVEL 9.2 MG/DL (8.5-10.1); CARBON DIOXIDE LEVEL 27.0 MMOL/L (20-31); CHLORIDE LEVEL 103.0 MMOL/L (98-107); CREATININE FOR GFR 1.14 MG/DL (0.55-1.30); GLOMERULAR FILTRATION RATE 63.2 (>60); POTASSIUM SERUM 4.1 MMOL/L (3.5-5.1); SODIUM LEVEL 139.0 MMOL/L (136-145)
== END ==
LOC: M SFHCADAM 12:38
PROVIDERS: ATTEND Physician Assistant
DX: T88.7XXA Unspecified adverse effect of drug or medicament, initial encounter (principal); Y93.9 Activity, unspecified; Y92.9 Unspecified place or not applicable